=== PATIENT | male | born 1965 | race Caucasian/White ===

== ENCOUNTER 2017-11-03 10:23 | Day surgery (SDC) | payer OTHER ==
[~2017-11-03] VITALS: Ht 165.1 cm; Wt 115.0 kg
[~2017-11-03 10:23] MED LIST: Abilify5 MG PO; CITA20 PO; CYCL10 PO; DESV50 PO; HYDACE10B; HYDACE7.5 PO; LAMO100 PO; METO50 PO; NAPR500 PO; OXYACE5T PO; SIMV40 PO; WARF4 PO
[2017-11-03] MEDS ORDERED: Norco 10-325 T1 EACH PO (12:19)
[2017-11-03] MEDS ORDERED: BRINTELLIX20 MG PO (12:20)
== END 2017-11-03 12:45 | disposition home or self-care (01) ==
LOC: ORSCSDS 10:23
PROVIDERS: Anesthesiology
PROC: 3E0R33Z Introduction of Anti-inflammatory into Spinal Canal, Percutaneous Approach (ICD-10-PCS; principal; 2017-11-03 11:15)
DX: M51.16 Intervertebral disc disorders with radiculopathy, lumbar region (principal); G47.30 Sleep apnea, unspecified; Z79.899 Other long term (current) drug therapy; E66.9 Obesity, unspecified; Z87.891 Personal history of nicotine dependence; Z68.41 Body mass index [BMI] 40.0-44.9, adult; I10 Essential (primary) hypertension; E78.00 Pure hypercholesterolemia, unspecified
CPT/HCPCS: J1040

== ENCOUNTER 2017-12-08 10:07 | Day surgery (SDC) | payer OTHER ==
[~2017-12-08] VITALS: Ht 167.6 cm; Wt 115.3 kg
[~2017-12-08 10:07] MED LIST changes: +BRINTELLIX20 MG PO; +Norco 10-325 T1 EACH PO
[2017-12-08] MEDS ORDERED: LISI20 (11:01)
[2017-12-08] MEDS ORDERED: PRIM50 (11:02)
== END 2017-12-08 11:34 | disposition home or self-care (01) ==
LOC: ORSCSDS 10:07
PROVIDERS: Anesthesiology
PROC: 3E0R33Z Introduction of Anti-inflammatory into Spinal Canal, Percutaneous Approach (ICD-10-PCS; principal; 2017-12-08 11:00)
DX: M51.16 Intervertebral disc disorders with radiculopathy, lumbar region (principal); I10 Essential (primary) hypertension; F32.9 Major depressive disorder, single episode, unspecified; E78.00 Pure hypercholesterolemia, unspecified; G47.30 Sleep apnea, unspecified; Z87.891 Personal history of nicotine dependence; Z79.899 Other long term (current) drug therapy
CPT/HCPCS: J1040

== ENCOUNTER 2018-02-06 04:59 | Emergency (ER) | payer OTHER ==
[~2018-02-06] VITALS: Ht 167.6 cm; Wt 90.7 kg
[~2018-02-06 04:59] MED LIST changes: +LISI20; +PRIM50
[2018-02-06 05:19] LABS: BASOPHILS ABSOLUTE AUTO 0.05 K/mm3 (0.00-0.23); BASOPHILS PERCENT AUTO 1 % (0-2); EOSINOPHILS ABSOLUTE AUTO 0.23 K/mm3 (0.00-0.68); EOSINOPHILS PERCENT AUTO 3 % (0-6); Hematocrit 35.2 % (37.0-53.0); Hemoglobin 12.4 g/dL (13.5-17.5); IMMATURE GRAN ABSOLUTE AUTO 0.03 K/mm3 (0.00-0.10); IMMATURE GRAN PERCENT AUTO 0 % (0-1); LYMPHOCYTES ABSOLUTE AUTO 1.73 K/mm3 (0.84-5.20); LYMPHOCYTES PERCENT AUTO 25 % (21-46); MONOCYTES PERCENT AUTO 10 % (4-13); Mean Corpuscular HGB 29.5 pg (26.0-34.0); Mean Corpuscular HGB Conc 35.2 g/dL (31.5-36.5); Mean Corpuscular Volume 84 fL (80-100); Mean Platelet Volume 8.5 fL (9.1-12.4); NEUTROPHILS ABSOLUTE AUTO 4.26 K/mm3 (1.96-9.15); NEUTROPHILS PERCENT AUTO 61 % (41-73); Platelet Count 426 K/mm3 (150-400); RDW Coefficient Variation 12.8 % (11.7-14.2); RDW Standard Deviation 38.4 fL (35.1-46.3)
[2018-02-06 05:30] LABS: International Normalized Ratio 1.01; Prothrombin Time Results 10.5 Sec (9.7-11.5)
[2018-02-06 05:39] LABS: Alanine Aminotransfer (ALT/SGP 31 U/L (12-78); Albumin, Blood 3.5 g/dL (3.4-5.0); Albumin/Globulin Ratio 1.1 (0.8-1.8); Alk Phos 70 U/L (50-136); Anion Gap 11 mmol/L (6-16); Aspartate Aminotrans (AST/SGOT 17 U/L (12-37); Bilirubin, Total 0.3 mg/dL (0.1-1.0); Blood Urea Nitrogen 24 mg/dL (8-24); Bun/Creatinine Ratio 21.8 (12.0-20.0); CO2, Blood 22 mmol/L (21-32); Calcium, Blood 8.9 mg/dL (8.5-10.1); Chloride, Blood 102 mmol/L (98-108); Ethanol (Alcohol), Blood, Med <3 mg/dL; Globulin, Blood 3.3 g/dL (2.2-4.0); Glomerular Filtration Rate >60 (60-); Glucose, Blood 153 mg/dL (70-99); Potassium, Blood 3.4 mmol/L (3.5-5.5); Sodium, Blood 135 mmol/L (136-145); Total Protein, Blood 6.8 g/dL (6.4-8.2)
[2018-02-06 06:04] LABS: Troponin I <0.015 ng/mL (0.000-0.040)
[2018-02-06 06:27] LABS: PCO2 Arterial 39.3 mmHg (35-45); PO2 Arterial 116 mmHg (80-100); pH Blood Arterial 7.33 (7.35-7.45)
[2018-02-06 07:40] LABS: U Amphetamine Screen Not Detected; U Barbituate Screen DETECTED; U Benzodiazapine Screen Not Detected; U Buprenorphine Screen Not Detected; U Cannabinoids Screen Not Detected; U Cocaine Screen Not Detected; U Methadone Screen Not Detected; U Methamphetamine Screen Not Detected; U Opiates Screen Not Detected; U Oxycodone Screen DETECTED; U Phencyclidine Screen Not Detected; U Propoxyphene Screen Not Detected
== END 2018-02-06 08:55 | disposition short-term general hospital (02) ==
LOC: ER 04:59
PROVIDERS: Emergency Medicine
DX: I63.9 Cerebral infarction, unspecified (principal); J96.90 Respiratory failure, unspecified, unspecified whether with hypoxia or hypercapnia; Z88.8 Allergy status to other drugs, medicaments and biological substances; Z79.899 Other long term (current) drug therapy; I10 Essential (primary) hypertension; F43.10 Post-traumatic stress disorder, unspecified; Z87.891 Personal history of nicotine dependence
CPT/HCPCS: 31500; 31720; 36600; 51702; 70450; 70496; 70498; 71275; 74175; 80053; 82803; 84484; 85025; 85610; 85730; 93005; 93010; 94002; G0480; J0330; J1644; J2060; J2310; J2370; J3010; J7030; Q9967

== ENCOUNTER 2021-03-11 02:23 | Inpatient (IN) | payer OTHER, MEDICARE ==
[~2021-03-11] VITALS: Ht 165.1 cm; Wt 121.2 kg
[~2021-03-11 02:23] MED LIST changes: -LISI20; +LISI20 PO
[2021-03-11 03:12] LABS: BASOPHILS ABSOLUTE AUTO 0.02 K/mm3 (0.00-0.23); BASOPHILS PERCENT AUTO 0 % (0-2); EOSINOPHILS ABSOLUTE AUTO 0.34 K/mm3 (0.00-0.68); EOSINOPHILS PERCENT AUTO 4 % (0-6); Hematocrit 33.9 % (37.0-53.0); Hemoglobin 11.4 g/dL (13.5-17.5); IMMATURE GRAN ABSOLUTE AUTO 0.04 K/mm3 (0.00-0.10); IMMATURE GRAN PERCENT AUTO 0 % (0-1); LYMPHOCYTES ABSOLUTE AUTO 0.96 K/mm3 (0.84-5.20); LYMPHOCYTES PERCENT AUTO 11 % (21-46); MONOCYTES ABSOLUTE AUTO 1.19 K/mm3 (0.16-1.47); MONOCYTES PERCENT AUTO 13 % (4-13); Mean Corpuscular HGB 31.8 pg (26.0-34.0); Mean Corpuscular HGB Conc 33.6 g/dL (31.5-36.5); Mean Corpuscular Volume 94 fL (80-100); Mean Platelet Volume 9.2 fL (9.1-12.4); NEUTROPHILS ABSOLUTE AUTO 6.38 K/mm3 (1.96-9.15); NEUTROPHILS PERCENT AUTO 72 % (41-73); Platelet Count 319 K/mm3 (150-400); RDW Coefficient Variation 13.3 % (11.7-14.2); RDW Standard Deviation 46.3 fL (35.1-46.3); Red Blood Cell Count 3.59 M/mm3 (4.30-5.90); White Blood Cell Count 8.93 K/mm3 (4.00-11.30)
[2021-03-11 03:32] LABS: Albumin, Blood 3.8 g/dL (3.4-5.0); Albumin/Globulin Ratio 1.2 (0.8-1.8); Bilirubin, Total 0.2 mg/dL (0.1-1.0); Bun/Creatinine Ratio 7.9 (12.0-20.0); Calcium, Blood 8.3 mg/dL (8.5-10.1); Creatinine, Blood 4.57 mg/dL (0.60-1.20); Globulin, Blood 3.3 g/dL (2.2-4.0); Potassium, Blood 4.3 mmol/L (3.5-5.5); Thyroid Stimulating Hormone 1.14 uIU/mL (0.360-4.800); Total Protein, Blood 7.1 g/dL (6.4-8.2); Troponin I 0.017 ng/mL (0.000-0.040)
[2021-03-11 04:51] LABS: Creatine Kinase MB Index 2.8 (0.0-4.0)
[2021-03-11 05:11] LABS: Base Excess Venous -8.7 mmol/L; Bicarbonate Venous 17.5 mmol/L (24.0-30.0); PCO2 Venous 44.8 mmHg (38-42); PO2 Venous 53.3 mmHg (38-42); pH Blood Venous 7.23 (7.34-7.37)
[2021-03-11 07:05] LABS: Source, Urine Clean Catch
[2021-03-11 07:08] LABS: Appearance, Urine Clear (Clear); Bilirubin, Urine Neg (Neg); Blood, Urine 4+ (Neg); Color, Urine Yellow (P-Yellow); Glucose Qualitative, Urine Neg (Neg); Ketones, Urine Neg (Neg); Leukocyte Esterase, Urine 1+ (Neg); Nitrite, Urine Neg (Neg); Protein, Urine 2+ (Neg); Specific Gravity, Urine 1.015 (1.003-1.022); Urobilinogen, Urine NORM (Normal)
[2021-03-11 07:18] LABS: Bacteria Few /hpf; Calcium Oxalate Crystals Many /hpf; Squamous Epithelial Cells Not Seen /hpf (Few)
--- NOTE | 2021-03-11 08:17 | NUR ---
ADMIT PT ARRIVED TO ICU 10 VIA GURNEY. PT ALERT AND ORIENTED, CONVERSING APPROPRIATELY WITH STAFF. PT MOVED TO ICU BED AND HAD SIGNIFICANT BACK PAIN WITH THE MOVEMENT CAUSING THE PT TO FREEZE ALMOST SPASM LIKE, BUT THE PT SAID IT WAS JUST INTENSE PAIN, NOT A MUSCLE SPASM. ASSISTED PT INTO A COMFORTABLE POSITION. GAVE PT CALL LIGHT AND INSTRUCTED ON USE WELL FALL PRECAUTIONS. LEVOPHED INFUSING, IV FLUIDS STARTED. DR. SIERRA AT THE BEDSIDE ON ROUNDS AND GAVE OK FOR THE 1.5L OF NS TO BE GIVEN A BOLUS. DR. SIERRA ALSO GAVE ORDER FOR NORCO FOR PAIN CONTROL. ADMIT PAPERWORK COMPLETED EXCEPT FOR MED REC. PT'S TO GO HOME AND CHECK NAME AND DOSE OF PT'S MOOD STABILIZER (HE BELIEVES IT IS [employer]OR BUT ISN'T COMPLETELY SURE). ADMIT PAPERWORK COMPLETED. PT VERY DROWSY AND AND FALLING ASLEEP WHILE DOING ADMIT. UPDATED PT ON PLAN OF CARE AND NOW ALLOWING HIM TIME TO REST. PT'S SPO2 DROPS TO THE UPPER 80S WHILE SLEEPING. PT NOTED ON HIS HISTORY THAT HE HAS HAD A SLEEP STUDY AND NEEDS A CPAP BUT DOESN'T HAVE ONE.
[2021-03-11 08:24] LABS: U Amphetamine Screen Not Detected; U Barbituate Screen DETECTED; U Benzodiazapine Screen Not Detected; U Buprenorphine Screen Not Detected; U Cannabinoids Screen Not Detected; U Cocaine Screen Not Detected; U Methadone Screen Not Detected; U Methamphetamine Screen Not Detected; U Opiates Screen Not Detected; U Oxycodone Screen DETECTED; U Phencyclidine Screen Not Detected; U Propoxyphene Screen Not Detected
--- NOTE | 2021-03-11 12:21 | NUR ---
REASSESSMENT PT STATES THAT HE IS STARTING TO FEEL BETTER, BUT HIS BACK IS STILL HURTING. HE WAS ABLE TO VOID 475ML, BUT HE DID HAVE TROUBLE INITIATING URINATION. HSI BP HAS IMPROVED WITH THE FLUIDS AND THE LEVOPHED WAS TITRATED OFF THIS MORNING. HIS LUNGS ARE CLEAR. ON RA WHILE AWAKE, BUT 2L/NC WHILE SLEEPING BECAUSE OF DESATURATION TO 85%. SR AT REST, TACHY TO 1TEENS WITH ACTIVITY. PT SPENT MOST OF THE MORNING SLEEPING WHEN LEFT UNDISTURBED AND IS CONTINUING TO REST NOW. CONTINUE TO MONITOR.
[2021-03-11 15:30] LABS: Calcium, Blood 8.2 mg/dL (8.5-10.1); Creatinine, Blood 3.39 mg/dL (0.60-1.20); Potassium, Blood 4.9 mmol/L (3.5-5.5)
[2021-03-11] MEDS ORDERED: PRAZ2 PO (16:14)
[2021-03-11] MEDS ORDERED: MIRT15 PO (16:14)
[2021-03-11] MEDS ORDERED: VENL37.5ER PO (16:15)
[2021-03-11] MEDS ORDERED: Primidone50 MG PO (16:16)
[2021-03-11] MEDS ORDERED: NAPR550 PO (16:17)
[2021-03-11] MEDS ORDERED: GABA300 PO ×2 (16:17→16:18)
[2021-03-11] MEDS ORDERED: SULTRIDS PO (16:22)
--- NOTE | 2021-03-11 16:43 | NUR ---
SHIFT SUMMARY PT SPENT THE DAY NAPPING WHEN LEFT UNDISTURBED. HE IS STILL HAVING SIGNIFICANT LOWER BACK PAIN WHEN HE MOVES, BUT WHEN AT REST HE RATES IT AROUND A 3 WHEREAS IT WAS A 5 THIS MORNING. HE STARTED VOIDING THIS AFTERNOON AND HAS VOIDED OVER 3L. URINE IS LIGHT YELLOW, CLEAR. HIS KIDNEY FUNCTION IMPROVED ON HIS LABS AND DR. SIERRA GAVE OK FOR PT TO BE MED, NO TELE. PT'S BROUGHT IN HIS PILL BOTTLES AND MED REC COMPLETED. LUNGS REMAIN CLEAR. RA, SR, BP RUNNING IN THE 130S AT REST, UP TO 160 WHEN STANDING AND IN PAIN. NO OTHER CONCERNS AT THIS TIME. CONTINUE TO MONITOR.
--- NOTE | 2021-03-11 17:55 | NUR ---
SHIFT SUMMARY PATIENT TO THE FLOOR LATE THIS SHIFT. PATIENT ARRIVED VIA WHEELCHAIR. PATIENT TRANSFERED TO THE BED INDEPENDENLY. PATIENT'S WITH PATIENT UPON ARRIVAL. PATIENT ORIENTED TO THE ROOM AND MADE COMFORTABLE. PATIENT CURRENTLY SITTING UP IN BED EATING DINNER.
--- NOTE | 2021-03-11 17:58 | NUR ---
TRANSFER PT TRANSFERRED TO 341. REPORT GIVEN TO MITESH RIVERA. PT TRANSPORTED VIA WC WITH RN. PT'S WITH PT AT TIME OF TRANSFER. ALL BELONGINGS TRANSFERRED WITH PT. PT TOLERATED TRNSFER WELL.
--- NOTE | 2021-03-12 04:51 | NUR ---
SHIFT SUMMARY NO ACUTE CHANGES THIS SHIFT, MEDICATED PER MAR FOR PAIN (CHRONIC BACK & BL FLANK) PT STATES 02/18 @ REST 10/10 W/AMBULATION, SLEPT INTERMITT T/O SHIFT, INDEP IN ROOM, ABLE TO MAKE NEEDS KNOWN, SLEPT INTERMITT T/O SHIFT, SLEEPING AT THIS TIME, CALL LIGHT IN REACH, WILL CONT TO MONITOR UNTIL REPORT GIVEN TO DAY RN.
[2021-03-12 05:39] LABS: BASOPHILS ABSOLUTE AUTO 0.03 K/mm3 (0.00-0.23); BASOPHILS PERCENT AUTO 1 % (0-2); EOSINOPHILS ABSOLUTE AUTO 0.44 K/mm3 (0.00-0.68); EOSINOPHILS PERCENT AUTO 7 % (0-6); Hematocrit 34.5 % (37.0-53.0); Hemoglobin 11.6 g/dL (13.5-17.5); IMMATURE GRAN ABSOLUTE AUTO 0.03 K/mm3 (0.00-0.10); IMMATURE GRAN PERCENT AUTO 1 % (0-1); LYMPHOCYTES PERCENT AUTO 10 % (21-46); MONOCYTES PERCENT AUTO 16 % (4-13); Mean Corpuscular HGB 31.4 pg (26.0-34.0); Mean Corpuscular HGB Conc 33.6 g/dL (31.5-36.5); Mean Corpuscular Volume 93 fL (80-100); Mean Platelet Volume 9.2 fL (9.1-12.4); NEUTROPHILS ABSOLUTE AUTO 4.17 K/mm3 (1.96-9.15); NEUTROPHILS PERCENT AUTO 67 % (41-73); Platelet Count 305 K/mm3 (150-400); RDW Standard Deviation 44.5 fL (35.1-46.3); White Blood Cell Count 6.27 K/mm3 (4.00-11.30)
[2021-03-12 06:14] LABS: Albumin, Blood 3.4 g/dL (3.4-5.0); Albumin/Globulin Ratio 0.9 (0.8-1.8); Bilirubin, Total 0.4 mg/dL (0.1-1.0); Bun/Creatinine Ratio 14.6 (12.0-20.0); Calcium, Blood 8.8 mg/dL (8.5-10.1); Creatinine, Blood 1.37 mg/dL (0.60-1.20); Globulin, Blood 3.6 g/dL (2.2-4.0); Potassium, Blood 4.5 mmol/L (3.5-5.5); Thyroid Stimulating Hormone 0.25 uIU/mL (0.360-4.800)
[2021-03-12 13:38] LABS: Anion Gap 5 mmol/L (6-16); Blood Urea Nitrogen 17 mg/dL (8-24); Bun/Creatinine Ratio 15.3 (12.0-20.0); CO2, Blood 25 mmol/L (21-32); Calcium, Blood 9.2 mg/dL (8.5-10.1); Chloride, Blood 102 mmol/L (98-108); Creatinine, Blood 1.11 mg/dL (0.60-1.20); Glomerular Filtration Rate >60 (60-); Glucose, Blood 166 mg/dL (70-99); Potassium, Blood 4.2 mmol/L (3.5-5.5); Sodium, Blood 132 mmol/L (136-145)
--- NOTE | 2021-03-12 14:55 | NUR ---
Advance Directive (AD) education/spiritual care visit conducted. Upon receiving an admit referral requesting AD education, I visit patient. Patient confirms AD interest and so I discuss the purpose and importance of the AD. I then give patient the AD booklet and explain about the different sections, about the notary and witness requirements and about the filing process. Patient states that he will go over the material with his spouse when she arrives at the hospital. 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 Patient tells me his concerns about going home after what he has gone through. I normalize patient's experience and provide therapeutic listening and prayer. Patient responds well and shows signs of reduced stress. I will continue to remain available to patient and family.
--- NOTE | 2021-03-12 15:25 | NUR ---
PATIENT HAS BEEN PLEASANT AND COOPERATIVE WITH STAFF. BP ELEVATED BUT VITALS OTHERWISE WNL. PATIENT MENTIONED NOT RECIEVING MAJORITY OF HOME MEDS SO I MADE CALL TO DR ELLIOTT TO INQUIRE ABOUT THAT, DR ELLIOTT STATED THAT SHE INTENTIONALLY HELD THOSE MEDICATIONS DUE TO BEING NEPHRO-TOXIC. THAT WAS EXPLAINED TO PATIENT AND PATIENT UNDERSTOOD. PATIENT CONTINUES ON IV FLUIDS PER EMAR. PLAN TO D/C HOME TOMORROW PER MD. PATIENT RESTING IN BED AT THIS TIME. CALL LIGHT WITHIN REACH; PATIENT CALLS FOR STAFF ASSIST APPROPRIATELY.
[2021-03-13 06:09] LABS: Anion Gap 7 mmol/L (6-16); Blood Urea Nitrogen 15 mg/dL (8-24); Bun/Creatinine Ratio 18.1 (12.0-20.0); CO2, Blood 25 mmol/L (21-32); Calcium, Blood 9.2 mg/dL (8.5-10.1); Chloride, Blood 103 mmol/L (98-108); Creatinine, Blood 0.83 mg/dL (0.60-1.20); Glomerular Filtration Rate >60 (60-); Glucose, Blood 106 mg/dL (70-99); Sodium, Blood 135 mmol/L (136-145)
[2021-03-13 06:10] LABS: CPK Creatine Kinase 1701 U/L (39-308)
--- NOTE | 2021-03-13 06:23 | NUR ---
PT alert voiding large amts of clear yellow urine. Appetite good , continued on IV fluids all shift. Medicated with 1 norco 5/325 mg tab or tylenol 650 mg for back & rt flank pain with good relief.
--- NOTE | 2021-03-13 07:30 | NUR ---
ASSUMED CARE: PT C/O RIGHT FLANK PAIN. NS RUNNING AT THIS TIME. NO ACUTE NEEDS OR CONCERNS. MEDICATED ABLE PER EMAR
[2021-03-13] MEDS ORDERED: LIDO700A20 TOP (09:56)
--- NOTE | 2021-03-13 12:54 | NUR ---
DISCHARGE: INSTRUCTIONS GIVEN REGARDING FOLLOW APPOINTMENTS AND MEDICATIONS. IV DC'D WNL. PT ESCORTED OUT VIA WHEEL CHAIR. DENIES FURTHER NEEDS OR CONCERNS
== END 2021-03-13 11:51 | disposition home or self-care (01) | DRG 682 ==
LOC: ER 02:23 → ICUW 07:13 → MEDS 17:45
PROVIDERS: Emergency Medicine; Family Medicine; ADMIT Internal Medicine
PROC: 3E033XZ Introduction of Vasopressor into Peripheral Vein, Percutaneous Approach (ICD-10-PCS; principal; 2021-03-11)
PROC: 05HY33Z Insertion of Infusion Device into Upper Vein, Percutaneous Approach (ICD-10-PCS; 2021-03-11)
DX: N17.9 Acute kidney failure, unspecified (principal); R57.1 Hypovolemic shock; E87.4 Mixed disorder of acid-base balance; M62.82 Rhabdomyolysis; Z68.41 Body mass index [BMI] 40.0-44.9, adult; I10 Essential (primary) hypertension; F43.10 Post-traumatic stress disorder, unspecified; N20.0 Calculus of kidney; E86.0 Dehydration; F32.9 Major depressive disorder, single episode, unspecified; M54.5 Low back pain; R94.6 Abnormal results of thyroid function studies; G89.29 Other chronic pain; F25.9 Schizoaffective disorder, unspecified; Z88.8 Allergy status to other drugs, medicaments and biological substances; Z87.891 Personal history of nicotine dependence; Z98.890 Other specified postprocedural states; Z79.899 Other long term (current) drug therapy
CPT/HCPCS: 36415; 51798; 71045; 71275; 74175; 80048; 80053; 81001; 82550; 82553; 82803; 83605; 83690; 84443; 84484; 85025; 87086; 93005; 93010; 96365-59; 96366; 96368; 96375-59; 97110; 97161; 99285-25; A9270; J1650; J2543; J3010; J7030; J7120; Q9967

== ENCOUNTER 2021-06-25 05:01 | Emergency (ER) | payer OTHER ==
[~2021-06-25] VITALS: Ht 165.1 cm; Wt 113.8 kg
[~2021-06-25 05:01] MED LIST changes: +GABA300 PO; +LIDO700A20 TOP; +MIRT15 PO; +NAPR550 PO; +PRAZ2 PO; +Primidone50 MG PO; +SULTRIDS PO; +VENL37.5ER PO
[2021-06-25 06:16] LABS: BASOPHILS ABSOLUTE AUTO 0.01 K/mm3 (0.00-0.23); BASOPHILS PERCENT AUTO 0 % (0-2); Hematocrit 32.8 % (37.0-53.0); Hemoglobin 11.3 g/dL (13.5-17.5); LYMPHOCYTES ABSOLUTE AUTO 0.77 K/mm3 (0.84-5.20); LYMPHOCYTES PERCENT AUTO 10 % (21-46); MONOCYTES ABSOLUTE AUTO 0.25 K/mm3 (0.16-1.47); MONOCYTES PERCENT AUTO 3 % (4-13); Mean Corpuscular HGB 30.2 pg (26.0-34.0); Mean Corpuscular HGB Conc 34.5 g/dL (31.5-36.5); Mean Corpuscular Volume 88 fL (80-100); Platelet Count 243 K/mm3 (150-400); RDW Coefficient Variation 14.1 % (11.7-14.2); RDW Standard Deviation 45.8 fL (35.1-46.3); Red Blood Cell Count 3.74 M/mm3 (4.30-5.90); White Blood Cell Count 7.37 K/mm3 (4.00-11.30)
[2021-06-25 06:19] LABS: EOSINOPHILS ABSOLUTE AUTO 0.02 K/mm3 (0.00-0.68); EOSINOPHILS PERCENT AUTO 0 % (0-6); IMMATURE GRAN ABSOLUTE AUTO 0.03 K/mm3 (0.00-0.10); IMMATURE GRAN PERCENT AUTO 0 % (0-1); NEUTROPHILS ABSOLUTE AUTO 6.29 K/mm3 (1.96-9.15); NEUTROPHILS PERCENT AUTO 85 % (41-73)
[2021-06-25 06:25] LABS: Anion Gap 7 mmol/L (6-16); Blood Urea Nitrogen 15 mg/dL (8-24); Bun/Creatinine Ratio 19.5 (12.0-20.0); CO2, Blood 24 mmol/L (21-32); Calcium, Blood 8.1 mg/dL (8.5-10.1); Chloride, Blood 102 mmol/L (98-108); Creatinine, Blood 0.77 mg/dL (0.60-1.20); Glomerular Filtration Rate >60 (60-); Glucose, Blood 141 mg/dL (70-99); Potassium, Blood 3.6 mmol/L (3.5-5.5); Sodium, Blood 133 mmol/L (136-145)
[2021-06-25 07:33] LABS: BASOPHILS PERCENT MAN 0 % (0-2); EOSINOPHILS PERCENT MAN 0 % (0-6); LYMPHOCYTES ABSOLUTE MAN 0.88 K/mm3 (0.84-5.20); LYMPHOCYTES PERCENT MAN 12 % (21-46); MONOCYTES ABSOLUTE MAN 0.36 K/mm3 (0.16-1.47); MONOCYTES PERCENT MAN 5 % (4-13); NEUTROPHILS ABSOLUTE MAN 6.11 K/mm3 (1.96-9.15); SEG NEUTROPHILS PERCENT MAN 83 % (41-73); TOTAL CELLS COUNTED 100
[2021-06-25] MEDS ORDERED: DEXA6 PO (08:02)
== END 2021-06-25 09:50 | disposition home or self-care (01) ==
LOC: ER 05:01
PROVIDERS: Emergency Medicine
DX: U07.1 COVID-19 (principal); J96.01 Acute respiratory failure with hypoxia; G47.30 Sleep apnea, unspecified; Z88.8 Allergy status to other drugs, medicaments and biological substances; Z79.899 Other long term (current) drug therapy
CPT/HCPCS: 36415; 71045; 80048; 85025; 93005; 93010; 96374; 99285-25; J1100

== ENCOUNTER 2021-06-28 09:24 | Inpatient (IN) | payer OTHER ==
[~2021-06-28] VITALS: Ht 165.1 cm; Wt 101.7 kg
[~2021-06-28 09:24] MED LIST changes: +DEXA6 PO
[2021-06-28 09:57] LABS: Hematocrit 36.4 % (37.0-53.0); Hemoglobin 12.3 g/dL (13.5-17.5); Mean Corpuscular HGB 29.8 pg (26.0-34.0); Mean Corpuscular HGB Conc 33.8 g/dL (31.5-36.5); Mean Corpuscular Volume 88 fL (80-100); Mean Platelet Volume 9.5 fL (9.1-12.4); NRBC ABSOLUTE 0.03 K/mm3 (0.00-0.02); NRBC Auto 0.2 /100 WBC (0.0-0.2); Platelet Count 290 K/mm3 (150-400); RDW Coefficient Variation 13.7 % (11.7-14.2); RDW Standard Deviation 44.5 fL (35.1-46.3); Red Blood Cell Count 4.13 M/mm3 (4.30-5.90); White Blood Cell Count 14.68 K/mm3 (4.00-11.30)
[2021-06-28 10:10] LABS: Alanine Aminotransfer (ALT/SGP 40 U/L (12-78); Albumin/Globulin Ratio 0.7 (0.8-1.8); Alk Phos 99 U/L (50-136); Anion Gap 13 mmol/L (6-16); Aspartate Aminotrans (AST/SGOT 27 U/L (12-37); Bilirubin, Total 0.5 mg/dL (0.1-1.0); Blood Urea Nitrogen 19 mg/dL (8-24); Bun/Creatinine Ratio 22.9 (12.0-20.0); CO2, Blood 18 mmol/L (21-32); Calcium, Blood 8.5 mg/dL (8.5-10.1); Chloride, Blood 106 mmol/L (98-108); Creatinine, Blood 0.83 mg/dL (0.60-1.20); Globulin, Blood 4.1 g/dL (2.2-4.0); Glomerular Filtration Rate >60 (60-); Glucose, Blood 217 mg/dL (70-99); Potassium, Blood 3.5 mmol/L (3.5-5.5); Sodium, Blood 137 mmol/L (136-145); Total Protein, Blood 7.1 g/dL (6.4-8.2)
[2021-06-28 10:17] LABS: BAND PERCENT MAN 13 % (0-8); BASOPHILS PERCENT MAN 0 % (0-2); EOSINOPHILS PERCENT MAN 0 % (0-6); LYMPHOCYTES ABSOLUTE MAN 0.88 K/mm3 (0.84-5.20); LYMPHOCYTES PERCENT MAN 6 % (21-46); METAMYELOCYTE ABSOLUTE MAN 0.44 K/mm3 (0.00-0.00); METAMYELOCYTE PERCENT MAN 3 % (0-0); MONOCYTES ABSOLUTE MAN 0.88 K/mm3 (0.16-1.47); MONOCYTES PERCENT MAN 6 % (4-13); MYELOCYTE ABSOLUTE MAN 0.29 K/mm3 (0.00-0.00); MYELOCYTE PERCENT MAN 2 % (0-0); NEUTROPHILS ABSOLUTE MAN 12.18 K/mm3 (1.96-9.15); SEG NEUTROPHILS PERCENT MAN 70 % (41-73); TOTAL CELLS COUNTED 100
--- NOTE | 2021-06-28 15:47 | NUR ---
SATS 88% ON FIO2 75%, RATE 15, BP 163/96 (108) HEART RATE 91
--- NOTE | 2021-06-28 15:50 | NUR ---
ANXIETY Patient continues to be anxious. Received T.O. from Dr. Garrido for Ativan 0.5-1mg Q2H PRN. EMAR updated.
--- NOTE | 2021-06-28 15:52 | NUR ---
SATS 92% ON 75% FIO2 RATE 12, 158/92 (110) LEFT ARM 94 HEART RATE
--- NOTE | 2021-06-28 16:03 | NUR ---
157/97 94% ON 75% FIO2 RESP RATE 36
--- NOTE | 2021-06-28 16:20 | NUR ---
REPORT FROM ZOIE MAGALLANES AT 1406, PATIENT TO FLOOR AT 1420, SOB, RESP 48, TRANSFERRED TO BED WAS MINMAL EXTERTION AND PATIENT BECAME VERY SOB, BIPAP ON NOW, MEDICATED FOR ANXIETY X2, MAKES NEEDS KNOWN, CALL LIGHT WITH IN REACH, WCTM
--- NOTE | 2021-06-28 16:44 | NUR ---
PATIENT CONTINUES TO FORGET REINFORCEMENT TO BREATH, REQUESTING PAIN MEDICATIONS, WILL MEDICATE WITH ULTRAM, 85% ON BIPAP AT 75% FIO2, RESPIRATIONS 44
--- NOTE | 2021-06-29 01:23 | NUR ---
Transfer note Hand off given to room PCU8 RN. Personal possessions with patient. RT and nursing staff transported patient to PCU via gurney. Bipap in place.
--- NOTE | 2021-06-29 01:32 | NUR ---
CALLED HOSPITALIST PT PULLING OFF BIPAP CONTINUOUSLY. ATIVAN GIVEN X2, NO EFFECT. RECEIVED ORDERS TO TRANSFER PT TO PCU. I NOTIFIED RT, WHO WILL BE PRESENT DURING TRANSFER.
--- NOTE | 2021-06-29 01:34 | NUR ---
CALLED SPOUSE INFORMED SPOUSE OF PT'S TRANSFER TO PCU 8. SPOUSE IS NOW AWARE
[2021-06-29 03:45] LABS: BASOPHILS ABSOLUTE AUTO 0.02 K/mm3 (0.00-0.23); BASOPHILS PERCENT AUTO 0 % (0-2); EOSINOPHILS PERCENT AUTO 0 % (0-6); Hematocrit 32.1 % (37.0-53.0); IMMATURE GRAN ABSOLUTE AUTO 0.47 K/mm3 (0.00-0.10); IMMATURE GRAN PERCENT AUTO 4 % (0-1); LYMPHOCYTES ABSOLUTE AUTO 0.75 K/mm3 (0.84-5.20); LYMPHOCYTES PERCENT AUTO 6 % (21-46); MONOCYTES PERCENT AUTO 12 % (4-13); Mean Corpuscular HGB 29.6 pg (26.0-34.0); Mean Corpuscular HGB Conc 34.3 g/dL (31.5-36.5); Mean Corpuscular Volume 86 fL (80-100); Mean Platelet Volume 9.4 fL (9.1-12.4); NEUTROPHILS ABSOLUTE AUTO 9.97 K/mm3 (1.96-9.15); NEUTROPHILS PERCENT AUTO 78 % (41-73); NRBC ABSOLUTE 0.04 K/mm3 (0.00-0.02); NRBC Auto 0.3 /100 WBC (0.0-0.2); Platelet Count 219 K/mm3 (150-400); RDW Coefficient Variation 13.7 % (11.7-14.2); RDW Standard Deviation 43.5 fL (35.1-46.3); Red Blood Cell Count 3.72 M/mm3 (4.30-5.90); White Blood Cell Count 12.71 K/mm3 (4.00-11.30)
[2021-06-29 04:11] LABS: Alanine Aminotransfer (ALT/SGP 30 U/L (12-78); Albumin, Blood 2.8 g/dL (3.4-5.0); Albumin/Globulin Ratio 0.7 (0.8-1.8); Alk Phos 80 U/L (50-136); Anion Gap 7 mmol/L (6-16); Aspartate Aminotrans (AST/SGOT 21 U/L (12-37); Bilirubin, Total 0.5 mg/dL (0.1-1.0); Blood Urea Nitrogen 17 mg/dL (8-24); Bun/Creatinine Ratio 24.4 (12.0-20.0); CO2, Blood 22 mmol/L (21-32); Calcium, Blood 8.2 mg/dL (8.5-10.1); Chloride, Blood 107 mmol/L (98-108); Glomerular Filtration Rate >60 (60-); Glucose, Blood 119 mg/dL (70-99); Magnesium, Blood 2.1 mg/dL (1.6-2.4); Potassium, Blood 3.5 mmol/L (3.5-5.5); Sodium, Blood 136 mmol/L (136-145); Total Protein, Blood 6.8 g/dL (6.4-8.2)
--- NOTE | 2021-06-29 04:41 | NUR ---
CALL TO NOTIFIED PT'S (DANIEL) THAT PT IS BEING MOVED TO ICU-07 AND PLAN IS FOR INTUBATION SHORTLY AFTER TRANSFER. SPOKE AT LENGTH TO ANSWER QUESTIONS, PROVIDED ICU PHONE #, AND REASSURED PT THAT STAFF ARE DOING EVERYTHING POSSIBLE AT THIS TIME.
[2021-06-29 05:46] LABS: Source, Urine Catheter
[2021-06-29 05:49] LABS: Appearance, Urine Hazy (Clear); Bilirubin, Urine Neg (Neg); Blood, Urine 5+ (Neg); Color, Urine Amber (P-Yellow); Glucose Qualitative, Urine Neg (Neg); Ketones, Urine 1+ (Neg); Leukocyte Esterase, Urine 1+ (Neg); Nitrite, Urine Neg (Neg); Protein, Urine 3+ (Neg); Urobilinogen, Urine NORM (Normal)
[2021-06-29 05:58] LABS: Amorphous Light (0-Heavy); Bacteria Few /hpf; Hyaline Casts 0-2 /lpf (0-2); Mucus Mod (0-Heavy); Red Blood Cells, Urine 50-100 /hpf (0-2); Squamous Epithelial Cells Few /hpf (Few)
[2021-06-29 06:03] LABS: pH Blood Arterial 7.28 (7.35-7.45)
[2021-06-29 06:04] LABS: PCO2 Arterial 48.4 mmHg (35-45)
--- NOTE | 2021-06-29 06:30 | NUR ---
PT ARRIVES TO ICU 7 FROM PCU SECONDARY TO RESPIRATORY DISTRESS AND FAILURE. PT NEEDED TO BE EMERGENTLY INTUBATED BY DR BLAS. PT ON PROPOFOL CURRENTLY 60 MCG/KG/MIN, PRECEDEX AT 1.4 MCG/KG AND WAS STILL WITH RESPIRATORY RATE 30-40'S. PT PLACED TO NIMBEX DRIP WITH TITRATION UP TO 3.4 MCG'S. PT HAS TRAIN OF FOUR 3/4. WILL CONTINUE TO MONITOR, AND WILL REPORT OFF TO ONCOMING RN.
--- NOTE | 2021-06-29 06:46 | NUR ---
AT AROUND 0345 PATIENT WAS GETTING MORE AND MORE AGITATED AND HIS WORK FOR BREATHING WAS INCREASING. THE PATIENT WAS ADMITTED FOR COVID ON THE MEDICAL FLOOR. HE WAS ON AIRVO DURING THE DAY BUT HIS O2 DEMAND INCREASED AND HE WAS PUT ON THE BIPAP. HE WAS TRANSFERED TO PCU ON BIPAP TO BE STARTED ON THE PRECEDEX DRIP. PRECEDEX WAS NEEDED TO BE INCREASED BECASUE PATIENT HAD REACHED THE MAX OF 0.7 MCG/KG/HR. DR RODRIGUEZ WAS NOTIFED AND THE ORDER FOR PRECEDEX WAS INCREASED. THE PATIENT WAS BUMPED UP TO 1.4 MCG/KG/HR. THE PATIENT WAS STILL FINDING IT DIFFICULT TO BREATH. RETAIL MANAGER IN TRAINING CAME TO EVALUATE THE PATIENT AND THE MD NEEDED TO COME EVALUATE THE PATIENT BASED ON THE INFORMATION THE MD WAS TOLD AND THE CURRENT PATIENT STATUS HE REQUESTED HE BE TRANSFERED TO THE ICU FOR INTUBATION. DUE TO THE PATIENT NOT IMPROVING WITH THE SETTINGS ON THE CPAP MAXED OUT AND HIS SATURATIONS HANGING IN THE MID 80% AND AROUND 77% THEY PLANNED ON INTUBATING THE PATIENT AFTER HE WAS TRANSFERED TO ICU. ATIVAN WAS GIVEN TO HELP CALM THE PATIENT WITHOUT ANY CHANGES. THE PATIENT WAS OVER WORKING HIMSELF TO BREATH. HE WAS THEN TRANSFERED TO THE ICU AND INTUBATED. PATIENT IS CURRENTLY IN THE ICU. HIS DANIEL WAS NOTIFED OF THE NEW CHANGES BY THE PCU CHARGE NURSE.
[2021-06-29 12:35] LABS: Base Excess Venous -3.2 mmol/L; PCO2 Venous 59.4 mmHg (38-42); PO2 Venous 53.7 mmHg (38-42); pH Blood Venous 7.24 (7.34-7.37)
[2021-06-29 13:58] LABS: Adenovirus Not Detected (NOT DETECT); Coronavirus 229E Not Detected (NOT DETECT); Coronavirus HKU1 Not Detected (NOT DETECT); Coronavirus NL63 Not Detected (NOT DETECT); Coronavirus OC43 Not Detected (NOT DETECT); SARS-Cov-2 (COVID-19), BioFire Not Detected (NOT DETECT)
[2021-06-29 13:59] LABS: Bordetella pertussis Not Detected (NOT DETECT); Chlamydophila pneumoniae Not Detected (NOT DETECT); Human Metapneumovirus Not Detected (NOT DETECT); Human Rhinovirus/Enterovirus Not Detected (NOT DETECT); Influenza A/2009-H1 Not Detected (NOT DETECT); Influenza A/H1 Not Detected (NOT DETECT); Influenza A/H3 Not Detected (NOT DETECT); Influenza B Not Detected (NOT DETECT); Mycoplasma pneumoniae Not Detected (NOT DETECT); Parainfluenza Virus 1 Not Detected (NOT DETECT); Parainfluenza Virus 2 Not Detected (NOT DETECT); Parainfluenza Virus 3 Not Detected (NOT DETECT); Parainfluenza Virus 4 Not Detected (NOT DETECT); Respiratory Syncytial Virus Not Detected (NOT DETECT)
--- NOTE | 2021-06-29 18:28 | NUR ---
PT INTUBATED, SEDATED AND PARALYZED THROUGHOUT SHIFT. END OF SHIFT VENT SETTINGS 24, 450, 12, 60; VBG DRAWN THIS AFTERNOON AND VENT MANAGED ACCORDINGLY. LUNGS DIM THROUGHOUT. SEDATION TITRATED DOWN TO PRECEDEX 0.8, PROP 40, NIMBEX DOWN TO 2 FROM 3.5. DISCUSSED WITH MD KANG GOAL TO TRIAL PT OFF PARALYTIC TONIGHT. PCR TEST NEGATIVE. PT AFEBRILE THROUGHOUT SHIFT, BP STABLE. GREAT UO. DISCUSSED WITH AM K 3.5, PT MAY BENEFIT FROM ELECTROLYTE PROTOCOL SINCE AUTODIURESING. LAB DRAWN. WILL REPORT OFF TO NOC SHIFT. RN AND UPDATED PT'S AND DTR THIS SHIFT. PT REPOSITIONED Q 2 HRS.
--- NOTE | 2021-06-29 20:00 | NUR ---
ASSUMED CARE OF PT AT 1915. REPORT RECEIVED. PT PRESENTS IN BED INTUBATED. PT PARALYZED WITH NIMBEX. TRAIN OF FOUR 3/4. SEDATED WITH PROPOFOL, AND PRECEDEX. LUNGS CLEAR IN UPPER LOBES, DIMINISHED IN BASES. WILL REVIEW CHART AND PLAN OF CARE FOR THIS PT.
--- NOTE | 2021-06-30 | NUR ---
NO CHANGES TO NOTE. HAVE TURNED PT Q 2 HOURS. HAS REMAINED AFEBRILE. WILL CONTINUE TO MONITOR.
[2021-06-30 04:42] LABS: BASOPHILS ABSOLUTE AUTO 0.02 K/mm3 (0.00-0.23); BASOPHILS PERCENT AUTO 0 % (0-2); Hematocrit 30.5 % (37.0-53.0); Hemoglobin 10.7 g/dL (13.5-17.5); LYMPHOCYTES ABSOLUTE AUTO 0.57 K/mm3 (0.84-5.20); LYMPHOCYTES PERCENT AUTO 5 % (21-46); MONOCYTES ABSOLUTE AUTO 1.15 K/mm3 (0.16-1.47); MONOCYTES PERCENT AUTO 10 % (4-13); Mean Corpuscular HGB 32.3 pg (26.0-34.0); Mean Corpuscular HGB Conc 35.1 g/dL (31.5-36.5); Mean Platelet Volume 9.9 fL (9.1-12.4); NRBC ABSOLUTE 0.04 K/mm3 (0.00-0.02); NRBC Auto 0.4 /100 WBC (0.0-0.2); Platelet Count 227 K/mm3 (150-400); RDW Coefficient Variation 14.4 % (11.7-14.2); RDW Standard Deviation 48.6 fL (35.1-46.3); Red Blood Cell Count 3.31 M/mm3 (4.30-5.90)
[2021-06-30 04:43] LABS: EOSINOPHILS ABSOLUTE AUTO 0.16 K/mm3 (0.00-0.68); EOSINOPHILS PERCENT AUTO 1 % (0-6); IMMATURE GRAN ABSOLUTE AUTO 0.45 K/mm3 (0.00-0.10); IMMATURE GRAN PERCENT AUTO 4 % (0-1); Mean Corpuscular Volume 92 fL (80-100); NEUTROPHILS ABSOLUTE AUTO 9.05 K/mm3 (1.96-9.15); NEUTROPHILS PERCENT AUTO 79 % (41-73)
[2021-06-30 06:04] LABS: Alanine Aminotransfer (ALT/SGP 26 U/L (12-78); Albumin/Globulin Ratio 0.5 (0.8-1.8); Alk Phos 61 U/L (50-136); Anion Gap 10 mmol/L (6-16); Aspartate Aminotrans (AST/SGOT 26 U/L (12-37); Bilirubin, Total 0.5 mg/dL (0.1-1.0); Blood Urea Nitrogen 13 mg/dL (8-24); Bun/Creatinine Ratio 23.2 (12.0-20.0); CO2, Blood 18 mmol/L (21-32); Calcium, Blood 7.7 mg/dL (8.5-10.1); Chloride, Blood 106 mmol/L (98-108); Creatinine, Blood 0.56 mg/dL (0.60-1.20); Globulin, Blood 3.9 g/dL (2.2-4.0); Glomerular Filtration Rate >60 (60-); Glucose, Blood 133 mg/dL (70-99); Magnesium, Blood 2.5 mg/dL (1.6-2.4); Potassium, Blood 4.8 mmol/L (3.5-5.5); Sodium, Blood 134 mmol/L (136-145); Total Protein, Blood 5.9 g/dL (6.4-8.2)
--- NOTE | 2021-06-30 06:30 | NUR ---
HAVE ATTEMPTED TO DECREASE PT'S NIMBEX OFF. ALSO DECREASED SEDATION. PT BECOMES TACHYPNEIC AND HYPERTENSIVE. PLACED PT TO 1 MCG NIMBEX, AND INCREASED SEDATION. PT REMAINED HYPERTENSIVE. ADMINISTERED 2 MG ATIVAN AND BLOOD PRESSURES RETURNED TO NORMAL LIMITS. WILL CONTINUE TO MONITOR PT, AND WILL REPORT OFF TO ONCOMING RN.
--- NOTE | 2021-06-30 10:15 | NUR ---
ASSUMED PT CARE, PT ON NIMBEX AT 1, TO4 01/13. SPOKE WITH MD KANG, NIMBEX NOW ON SB, RESTRAINTS IN PLACE PRECAUTION. PROP AT 50 MCG/KG/MIN, DEX AT 0.7. PUPPILS 5 BILATERAL, BRISK. COUGH AND GAG PRESENT. RASS -4. WILL REASSESS AGAIN TO EVAL SEDATION STATUS NOW THAT NIMBEX OFF. VENT SETTINGS 24, 450, PEEP 8, FI02 ON 80% AT START OF SHIFT, TITRATED DOWN TO 70% SATS 94%. LOW GRADE FEVER 99.5, COOLING MEASURES APPLIED. GREAT UO. FC CATH PROVIDED. DISCUSSED WITH MD KANG DECREASING IVF.
--- NOTE | 2021-06-30 10:33 | NUR ---
WITH NIMBEX OFF FOR 30 MIN, PT TACHYPNEIC IN 40S, HRN 168/105, DESATTING TO 86%. TITRATED PRECEDEX TO 1.4, PROP TO 60, PT REMAINS UNABLE TO TOLERATE VENTILATION. NIMBEX RESTARTED AT 2MCG/KG/MIN TO ACHIEVE TO4 2/4. MD KANG UPDATED.
--- NOTE | 2021-06-30 18:02 | NUR ---
MAJOR EVENTS THIS SHIFT: ATTEMPTED TO KEEP PARALYTIC OFF IN AM, HOWEVER PT BECAME TACHYPNEIC, TACHYCARDIC, AND HTN, STACKING BREATHS WITH POOR VENT TOLERANCE DESPITE INCREASING SEDATION. MD KANG INFORMED, PT RESTARTED ON NIMBEX. AT END OF SHIFT PRECEDEX AT 1.2, PROP AT 50, NIMBEX AT 2; VENT SETTINGS 24, 450, 12, 60%. PLAN FOR METEOROLOGICAL EQUIPMENT REPAIRER CONSULT TO START TF. GOOD UO FROM FC. PT REPOSITIONED Q 2 HRS ABLE. SPUTUM CULTURE POSITIVE FOR MRSA. PTS UPDATED X 2 THROUGHOUT SHIFT.
[2021-07-01 04:27] LABS: BASOPHILS ABSOLUTE AUTO 0.02 K/mm3 (0.00-0.23); BASOPHILS PERCENT AUTO 0 % (0-2); EOSINOPHILS ABSOLUTE AUTO 0.28 K/mm3 (0.00-0.68); EOSINOPHILS PERCENT AUTO 3 % (0-6); Hematocrit 30.9 % (37.0-53.0); IMMATURE GRAN ABSOLUTE AUTO 0.57 K/mm3 (0.00-0.10); IMMATURE GRAN PERCENT AUTO 5 % (0-1); LYMPHOCYTES ABSOLUTE AUTO 0.72 K/mm3 (0.84-5.20); LYMPHOCYTES PERCENT AUTO 6 % (21-46); MONOCYTES ABSOLUTE AUTO 1.02 K/mm3 (0.16-1.47); MONOCYTES PERCENT AUTO 9 % (4-13); Mean Corpuscular HGB 29.6 pg (26.0-34.0); Mean Corpuscular HGB Conc 32.4 g/dL (31.5-36.5); Mean Corpuscular Volume 91 fL (80-100); Mean Platelet Volume 9.4 fL (9.1-12.4); NEUTROPHILS PERCENT AUTO 77 % (41-73); NRBC ABSOLUTE 0.09 K/mm3 (0.00-0.02); NRBC Auto 0.8 /100 WBC (0.0-0.2); Platelet Count 305 K/mm3 (150-400); RDW Coefficient Variation 14.2 % (11.7-14.2); RDW Standard Deviation 47.8 fL (35.1-46.3); Red Blood Cell Count 3.38 M/mm3 (4.30-5.90); White Blood Cell Count 11.41 K/mm3 (4.00-11.30)
[2021-07-01 04:46] LABS: Anion Gap 5 mmol/L (6-16); Blood Urea Nitrogen 12 mg/dL (8-24); Bun/Creatinine Ratio 16.8 (12.0-20.0); CO2, Blood 27 mmol/L (21-32); Calcium, Blood 8.2 mg/dL (8.5-10.1); Chloride, Blood 107 mmol/L (98-108); Creatinine, Blood 0.71 mg/dL (0.60-1.20); Glomerular Filtration Rate >60 (60-); Glucose, Blood 130 mg/dL (70-99); Potassium, Blood 4.1 mmol/L (3.5-5.5); Sodium, Blood 139 mmol/L (136-145)
[2021-07-01 05:10] LABS: PCO2 Arterial 43.5 mmHg (35-45); PO2 Arterial 68.8 mmHg (80-100); pH Blood Arterial 7.37 (7.35-7.45)
--- NOTE | 2021-07-01 07:21 | NUR ---
Assumed care for patient during the shift supervisor rn. Patient vented and sedated, also he is on Nimbex drip. During the night patient was very agitated with sbp above 190. MD notified and new oders given for PRN Hydralizine and Labetalol IV push. Precedex was discontinued and Fentanyl drip initiated. Suctioned for minimal thin evans secretion via ETT and orally. Repositioned from side to side. No distress noted.
--- NOTE | 2021-07-01 07:35 | NUR ---
CARE ASSUMED OF PT AT 0700. PT SEVERELY HYPERTENSIVE 215/92. BIS 60'S. PRECEDEX OFF (WAS DC'D), PROPOFOL AT 50MCG, FENT GTT AT 50MCG. PT HAD BEEN RESCENTLY MEDICATED W IV HTN MEDS. ATIVAN 2MG IVP GIVEN. PT IS ON NIMBEX AT 2MCG, TO4 4/4, BUT PT APPEARS ADEQUATELY PARALYZED. NO COUGH, GAG, OR SWALLOW, PT IS NOT BREATHING OVER VENT, PT IS SYNCHRONIZED W VENT. AC/VC 24 450/70 50% PEEP 12. PT'S SATS 95%, SINUS TACH 90-110. TEMP 99.1. LUNGS COARSE T/O W GOOD AIR MOVEMENT.
--- NOTE | 2021-07-01 07:43 | NUR ---
PT REMAINS HYPERTENSIVE, TACHY, WITH BIS 50'S. PROPOFOL INCREASED TO 60MCG FROM 50MCG.
--- NOTE | 2021-07-01 09:40 | NUR ---
BP CONT TO BE PROFOUNDLY HTN DESPITE HYDRALAZINE PUSH. PROPOFOL INCREASED TO 70MCG, FENT 25MCG GIVEN FOR BIS 40-50'S. BP NOW 140/76
--- NOTE | 2021-07-01 10:21 | NUR ---
DR VARGAS AT BEDSIDE, FULL UPDATE GIVEN.
--- NOTE | 2021-07-01 11:10 | NUR ---
PT HYPERTENSIVE, TACHYCARDIC W INCREASED ECTOPY, PAC'S/PVC'S. SMALL RUN OF VT <5BEATS. DR PANG NOTIFIED. STAT PHOS ORDERED. MAG FROM 06/30 HIGH. LABETALOL 20MG IVP GIVEN. HEART RATE NOW 90'S, BP IMPROVED
[2021-07-01 11:50] LABS: Phosphorus, Blood 3.1 mg/dL (2.5-4.9); Vancomycin, Trough 15.2 ug/mL (5.0-10.0)
--- NOTE | 2021-07-01 12:02 | NUR ---
BP/HR REMAIN STABLE. TO4 4/4, PT REMAINS ADEQUATELY SEDATED AND PARALYZED. BIS 40'S. AFEBRILE.
--- NOTE | 2021-07-01 12:12 | NUR ---
VHP TUBE FEEDS STARTED AT 15CC/HR.
--- NOTE | 2021-07-01 12:38 | NUR ---
PT'S GIVEN UPDATE VIA PHONE.
--- NOTE | 2021-07-01 17:13 | NUR ---
PT BP TRENDING DOWN, PROPOFOL DECREASED TO 60MCG, BIS 30'S, TO4 4/4, PT ADEQWUATELY PARALYZED. BP CONT TO TREND DOWN W MAP <65. DR VARGAS CALLED. FLUID BOLUS FOLLOWED BY LEVOPHED ORDERED IF NEEDED.
--- NOTE | 2021-07-01 18:07 | NUR ---
PT CONTINUES TO BE HYPOTENSIVE AFTER 500CC BOLUS. DR VARGAS NOTIFIED. 2ND 500CC BOLUS STARTED, LEVOPHED ON HAND
--- NOTE | 2021-07-01 18:24 | NUR ---
MAP <65 AFTER 2ND BOLUS COMPLETE. LEVOPHED GTT STARTED AT 3MCG
--- NOTE | 2021-07-01 18:46 | NUR ---
PT TOLERATING VENT, FIO2 AT 60%. PROPOFOL HAS BEEN DECREASED TO 50MCG, BIS 30'S. LEVOPHED AT 3MCG, NIMBEX AT 2MCG, PT REMAINS ADEQUATELY PARALYZED
--- NOTE | 2021-07-01 20:47 | NUR ---
Assume care for patient at 1900. Vented [facility] minimal secretion via his ETT. Levophed drip on hold for sbp above 200. At this point TOF is 0/4 at an amp of 9.
[2021-07-02 04:39] LABS: Hematocrit 28.3 % (37.0-53.0); Hemoglobin 10.4 g/dL (13.5-17.5); Mean Corpuscular HGB 33.3 pg (26.0-34.0); Mean Corpuscular HGB Conc 36.7 g/dL (31.5-36.5); Mean Corpuscular Volume 91 fL (80-100); Mean Platelet Volume 9.8 fL (9.1-12.4); NRBC Auto 0.9 /100 WBC (0.0-0.2); Platelet Count 376 K/mm3 (150-400); RDW Coefficient Variation 14.6 % (11.7-14.2); RDW Standard Deviation 48.9 fL (35.1-46.3); Red Blood Cell Count 3.12 M/mm3 (4.30-5.90); White Blood Cell Count 11.34 K/mm3 (4.00-11.30)
[2021-07-02 05:05] LABS: BAND PERCENT MAN 5 % (0-8); BASOPHILS PERCENT MAN 0 % (0-2); EOSINOPHILS PERCENT MAN 0 % (0-6); LYMPHOCYTES ABSOLUTE MAN 0.56 K/mm3 (0.84-5.20); LYMPHOCYTES PERCENT MAN 5 % (21-46); MONOCYTES ABSOLUTE MAN 0.79 K/mm3 (0.16-1.47); MONOCYTES PERCENT MAN 7 % (4-13); NEUTROPHILS ABSOLUTE MAN 9.97 K/mm3 (1.96-9.15); SEG NEUTROPHILS PERCENT MAN 83 % (41-73); TOTAL CELLS COUNTED 100
[2021-07-02 06:13] LABS: Albumin, Blood 1.6 g/dL (3.4-5.0); Anion Gap 7 mmol/L (6-16); Blood Urea Nitrogen 17 mg/dL (8-24); Bun/Creatinine Ratio 39.7 (12.0-20.0); CO2, Blood 23 mmol/L (21-32); Calcium, Blood 6.5 mg/dL (8.5-10.1); Chloride, Blood 99 mmol/L (98-108); Creatinine, Blood 0.43 mg/dL (0.60-1.20); Glomerular Filtration Rate >60 (60-); Glucose, Blood 207 mg/dL (70-99); Magnesium, Blood 2.2 mg/dL (1.6-2.4); Phosphorus, Blood 2.8 mg/dL (2.5-4.9); Potassium, Blood 4.9 mmol/L (3.5-5.5); Sodium, Blood 129 mmol/L (136-145)
--- NOTE | 2021-07-02 07:36 | NUR ---
Patient sedated and vented with scant secretion via ETT. His blood pressur very high and labatalol and hydralyzine were interchangeably administered. No distress noted.
--- NOTE | 2021-07-02 07:44 | NUR ---
CARE OF PT ASSUMED AT 0700. PT HTN W SBP>200. LEBATALOL AND HYDRALAZINE HAD BEEN GIVEN RECENTLY. PT'S BIS 60'S. FENTANYL 25MCG, VERSED 2 MG GIVEN IV. BP NOW 149/74. SATS 87% ON 70% FIO2, AIR LEAK TO CUFF. 1CC AIR PLACED, AIR LEAK RESOLVED. SATS NOW 91%.
--- NOTE | 2021-07-02 09:43 | NUR ---
DR VARGAS AT PT'S BEDSIDE, FULL UPDATE GIVEN. VERSED GTT TO BE STARTED
--- NOTE | 2021-07-02 10:59 | NUR ---
Pt given full bedbath, luca well. Versed gtt started at 1mg/hr and is now at 3mg/hr. BP improved, BIS 30's, TO4 4/4. Pt is adequately paralyzed.
[2021-07-02 12:26] LABS: Vancomycin, Trough 20.6 ug/mL (5.0-10.0)
--- NOTE | 2021-07-02 13:06 | NUR ---
BIS 20'S, MAPS MID TO HIGH 50'S. VERSED PLACED ON STANDBY, PROPOFOL DECREASED TO 40. BIS NOW MID 30'S. BP IMPROVING W MAPS >60. TO4 4/, FAINT, PT ADEQUATELY PARALYZED.
--- NOTE | 2021-07-02 14:57 | NUR ---
BIS 60'S, PT VERY HYPERTENSIVE AGAIN W SBP >200. VERSED TITRATED BACK UP TO 5MG/HR, PROPOFOL INCREASED TO 50MCG
--- NOTE | 2021-07-02 15:59 | NUR ---
FENT FIELD AGENT DC'D AND WASTED W OPAL ALVAREZ RN. BIS 30-40'S, BP STABLE, TO4 FAINT 4/4 AT 10AMPS, PT REMAINS ADEQUATELY PARALYZED. SATS 92% ON 60% FIO2.
--- NOTE | 2021-07-02 17:38 | NUR ---
BIS 50'S, PT TACHY AT 110, AND HYPERTENSIVE. DILAUDID 1MG GIVEN. VERSED UP TO 7MG/HR, PROP AT 60MCG. NIMBEX DECREASED TO 1MCG TO CHECK NEURO STATUS.
--- NOTE | 2021-07-02 18:52 | NUR ---
DR VARGAS GIVEN UPDATE. BIS NOW 20-30, STARTING TO TITRATE VERSED DOWN. PT DOING WELL WITH NIMBEX AT 1MCG. RESTRAINTS PLACED, NIMBEX TO BE TITRATED OFF TOLERATED.
--- NOTE | 2021-07-02 20:25 | NUR ---
aSSUMED CARE AT 1900. Patient intubated and on versed drip at 6mg/hr, Propofol drip at 50mcg/kg/min and Nimbex at 1mcg/kg/min. Bis in place and at 32 to 70 at this time also on the TOF patint is giving 3/4 on an amp of 6. No distress. Suctioned for small evans thin secretion via ETT. Mouthcare performed.
[2021-07-03 05:04] LABS: Hematocrit 27.2 % (37.0-53.0); Hemoglobin 9.8 g/dL (13.5-17.5); Mean Corpuscular HGB 33.4 pg (26.0-34.0); Mean Corpuscular Volume 93 fL (80-100); Mean Platelet Volume 9.5 fL (9.1-12.4); NRBC ABSOLUTE 0.02 K/mm3 (0.00-0.02); NRBC Auto 0.2 /100 WBC (0.0-0.2); Platelet Count 438 K/mm3 (150-400); RDW Coefficient Variation 14.6 % (11.7-14.2); RDW Standard Deviation 49.4 fL (35.1-46.3); Red Blood Cell Count 2.93 M/mm3 (4.30-5.90); White Blood Cell Count 13.13 K/mm3 (4.00-11.30)
[2021-07-03 05:26] LABS: Magnesium, Blood 2.6 mg/dL (1.6-2.4)
[2021-07-03 06:02] LABS: BAND PERCENT MAN 10 % (0-8); BASOPHILS PERCENT MAN 0 % (0-2); EOSINOPHILS PERCENT MAN 0 % (0-6); LYMPHOCYTES ABSOLUTE MAN 1.05 K/mm3 (0.84-5.20); LYMPHOCYTES PERCENT MAN 8 % (21-46); MONOCYTES PERCENT MAN 0 % (4-13); MYELOCYTE ABSOLUTE MAN 0.65 K/mm3 (0.00-0.00); MYELOCYTE PERCENT MAN 5 % (0-0); NEUTROPHILS ABSOLUTE MAN 11.42 K/mm3 (1.96-9.15); SEG NEUTROPHILS PERCENT MAN 77 % (41-73); TOTAL CELLS COUNTED 100
[2021-07-03 06:13] LABS: Anion Gap 7 mmol/L (6-16); Blood Urea Nitrogen 23 mg/dL (8-24); Bun/Creatinine Ratio 43.4 (12.0-20.0); CO2, Blood 25 mmol/L (21-32); Chloride, Blood 102 mmol/L (98-108); Creatinine, Blood 0.53 mg/dL (0.60-1.20); Glomerular Filtration Rate >60 (60-); Glucose, Blood 225 mg/dL (70-99); Phosphorus, Blood 3.1 mg/dL (2.5-4.9); Sodium, Blood 134 mmol/L (136-145)
[2021-07-03 06:25] LABS: Calcium, Blood 7.3 mg/dL (8.5-10.1)
--- NOTE | 2021-07-03 06:55 | NUR ---
No acute clinical changes. Patient vented and during the night his bp was gong up and so dilaudid 2mg iv was administered with good result. Scant secretion. Patient repositioned from side to side during the night. No bowel movement. No distress noted
--- NOTE | 2021-07-03 07:15 | NUR ---
Assumed care of pt at 0700 with Chanell SAGASTUME.
--- NOTE | 2021-07-03 12:00 | NUR ---
No acute changes to shift assessment.
--- NOTE | 2021-07-03 18:39 | NUR ---
SHIFT SUMMARY Neuro: Receiving propofol at 50 mcg/kg/min. Versed 6 mg/hr. BIS 40-60. Nimbex 2 mcg/kg/min. TOF 3/4. Unresponsive. Cough and gag absent. PERRL. No movement noted to extremities. Musculoskeletal: Mobility limited by cords, lines, tubes, intubation, and sedation. Pt receiving paralytic for ventilator tolerance. Respiratory: 8.0 cm ETT remains at 27 cm at teeth placement. Vent settings ACVC- 26/450/12/90%. Actual RR 26. Tidal volumes approx 450 ml. SpO2 90%. No sputum suctioned from ETT this shift. Lungs diminished t/o. Cardiac: SR per monitor. BP stable. High at times during shift but this resolves when pt's chronic pain is medicated. No edema. Capillary refill less than 3 seconds BUE and BLE. 2+ pulses radial, pedal, and posttibial. Unremarkable heart sounds. Pt has PICC to E. GI: OG tube with feeds and flushes per orders. Hypoactive BT. No signs of abd tenderness with palpation. : Abebe catheter in place with excellent output of clear, yellow urine. Skin: Unremarkable. Psychosocial: Unable to assess pt due to intubation and sedation. This RN did not have contact with pt's family today. Dr Powell updated pt's spouse on plan of care. Will continue to closely monitor until care handoff and bedside report with oncoming RN.
--- NOTE | 2021-07-03 22:35 | NUR ---
Assumed care at 1900. patient vented and on sedation and paralytic drips. At the beginning of this shift his sbp went as high as 200 and labetolol 20mg was administered with good result of sbp below 130, also dilaudid 2mg iv was administered. Will continue to monitor and perform care.
[2021-07-04 04:07] LABS: Hematocrit 27.3 % (37.0-53.0); Hemoglobin 10.1 g/dL (13.5-17.5); Mean Corpuscular HGB 34.6 pg (26.0-34.0); Mean Corpuscular Volume 94 fL (80-100); Mean Platelet Volume 9.7 fL (9.1-12.4); NRBC ABSOLUTE 0.03 K/mm3 (0.00-0.02); NRBC Auto 0.2 /100 WBC (0.0-0.2); Platelet Count 421 K/mm3 (150-400); RDW Coefficient Variation 14.6 % (11.7-14.2); Red Blood Cell Count 2.92 M/mm3 (4.30-5.90); White Blood Cell Count 12.84 K/mm3 (4.00-11.30)
[2021-07-04 04:28] LABS: Magnesium, Blood 2.4 mg/dL (1.6-2.4)
[2021-07-04 04:33] LABS: BAND PERCENT MAN 5 % (0-8); BASOPHILS PERCENT MAN 0 % (0-2); EOSINOPHILS ABSOLUTE MAN 0.12 K/mm3 (0.00-0.68); EOSINOPHILS PERCENT MAN 1 % (0-6); LYMPHOCYTES ABSOLUTE MAN 1.02 K/mm3 (0.84-5.20); LYMPHOCYTES PERCENT MAN 8 % (21-46); METAMYELOCYTE ABSOLUTE MAN 0.12 K/mm3 (0.00-0.00); METAMYELOCYTE PERCENT MAN 1 % (0-0); MONOCYTES ABSOLUTE MAN 1.02 K/mm3 (0.16-1.47); MONOCYTES PERCENT MAN 8 % (4-13); MYELOCYTE ABSOLUTE MAN 0.51 K/mm3 (0.00-0.00); MYELOCYTE PERCENT MAN 4 % (0-0); NEUTROPHILS ABSOLUTE MAN 10.01 K/mm3 (1.96-9.15); SEG NEUTROPHILS PERCENT MAN 73 % (41-73); TOTAL CELLS COUNTED 100
[2021-07-04 04:55] LABS: Albumin, Blood 1.7 g/dL (3.4-5.0); Anion Gap 5 mmol/L (6-16); Blood Urea Nitrogen 25 mg/dL (8-24); Bun/Creatinine Ratio 51.9 (12.0-20.0); CO2, Blood 27 mmol/L (21-32); Calcium, Blood 7.2 mg/dL (8.5-10.1); Chloride, Blood 102 mmol/L (98-108); Creatinine, Blood 0.48 mg/dL (0.60-1.20); Glomerular Filtration Rate >60 (60-); Glucose, Blood 225 mg/dL (70-99); Potassium, Blood 4.4 mmol/L (3.5-5.5); Sodium, Blood 134 mmol/L (136-145)
--- NOTE | 2021-07-04 07:09 | NUR ---
Patient remained vented. No acute clinical changes. Repositioned from side to side. No distress noted
[2021-07-04 13:19] LABS: Vancomycin, Trough 18.1 ug/mL (5.0-10.0)
--- NOTE | 2021-07-04 22:23 | NUR ---
DILAUDED GIVEN - DIFFICULTY ASSESSING PAIN USING CPOT AND FLACC SCORES BECAUSE PATIENT IS SEDATED AND PARALYZED. PAIN BASED OFF OF INCREASED HR AND BP. DILAUDED GIVEN WITH LABETOLOL. 5 MIN HR AND NBP CHECK HAS IMPROVED HR AND NBP ALREADY. HR NOW 89. NBP 160/75. WILL CONTINUE TO MONITOR.
--- NOTE | 2021-07-05 03:05 | NUR ---
DR. SHEPARD NOTIFIED OF TITRATION OF PARALYTIC PER ORDER. REQUEST FOR RESTRAINT ORDER PARALYTIC IS BEING WEANED DOWN. CONFIRMED ORDER.
[2021-07-05 04:00] LABS: BASOPHILS ABSOLUTE AUTO 0.04 K/mm3 (0.00-0.23); BASOPHILS PERCENT AUTO 0 % (0-2); EOSINOPHILS ABSOLUTE AUTO 0.05 K/mm3 (0.00-0.68); EOSINOPHILS PERCENT AUTO 0 % (0-6); Hematocrit 32.3 % (37.0-53.0); Hemoglobin 10.2 g/dL (13.5-17.5); IMMATURE GRAN ABSOLUTE AUTO 1.06 K/mm3 (0.00-0.10); IMMATURE GRAN PERCENT AUTO 7 % (0-1); LYMPHOCYTES ABSOLUTE AUTO 0.66 K/mm3 (0.84-5.20); LYMPHOCYTES PERCENT AUTO 4 % (21-46); MONOCYTES ABSOLUTE AUTO 1.54 K/mm3 (0.16-1.47); MONOCYTES PERCENT AUTO 10 % (4-13); Mean Corpuscular HGB 29.1 pg (26.0-34.0); Mean Corpuscular HGB Conc 31.6 g/dL (31.5-36.5); Mean Corpuscular Volume 92 fL (80-100); Mean Platelet Volume 9.2 fL (9.1-12.4); NEUTROPHILS ABSOLUTE AUTO 12.34 K/mm3 (1.96-9.15); NEUTROPHILS PERCENT AUTO 79 % (41-73); NRBC ABSOLUTE 0.03 K/mm3 (0.00-0.02); NRBC Auto 0.2 /100 WBC (0.0-0.2); Platelet Count 540 K/mm3 (150-400); RDW Coefficient Variation 14.6 % (11.7-14.2); RDW Standard Deviation 49.3 fL (35.1-46.3); White Blood Cell Count 15.69 K/mm3 (4.00-11.30)
[2021-07-05 04:27] LABS: Anion Gap 4 mmol/L (6-16); Blood Urea Nitrogen 29 mg/dL (8-24); Bun/Creatinine Ratio 55.7 (12.0-20.0); CO2, Blood 31 mmol/L (21-32); Calcium, Blood 8.7 mg/dL (8.5-10.1); Chloride, Blood 105 mmol/L (98-108); Creatinine, Blood 0.52 mg/dL (0.60-1.20); Glomerular Filtration Rate >60 (60-); Glucose, Blood 204 mg/dL (70-99); Potassium, Blood 4.5 mmol/L (3.5-5.5); Sodium, Blood 140 mmol/L (136-145)
[2021-07-05 04:36] LABS: BAND PERCENT MAN 1 % (0-8); BASOPHILS PERCENT MAN 0 % (0-2); EOSINOPHILS ABSOLUTE MAN 0.15 K/mm3 (0.00-0.68); EOSINOPHILS PERCENT MAN 1 % (0-6); LYMPHOCYTES ABSOLUTE MAN 0.47 K/mm3 (0.84-5.20); LYMPHOCYTES PERCENT MAN 3 % (21-46); METAMYELOCYTE ABSOLUTE MAN 0.94 K/mm3 (0.00-0.00); METAMYELOCYTE PERCENT MAN 6 % (0-0); MONOCYTES ABSOLUTE MAN 1.72 K/mm3 (0.16-1.47); MONOCYTES PERCENT MAN 11 % (4-13); NEUTROPHILS ABSOLUTE MAN 12.39 K/mm3 (1.96-9.15); SEG NEUTROPHILS PERCENT MAN 78 % (41-73); TOTAL CELLS COUNTED 100
--- NOTE | 2021-07-05 06:11 | NUR ---
END OF SHIFT SUMMARY. INCREASE PROPOFOL, INCRESE VERSED, DECREASE NIMBEX. REFLEXES COMING BACK NIMBEX IS WEANED. TOLERATING VENT. HTN EPISODE LAST NIGHT. GIVEN LABETOLOL AND DILAUDED PRN. RESIDUALS, TURNS, ORAL CARE, I/O, RESTRAINT CHECKS AND CHARTING AND MED PASSES ASSUMED CARE BY DANYEL JONES RN. OTHERWISE CARBON COATER MACHINE OPERATOR IS PRIMARY RN.
--- NOTE | 2021-07-05 18:23 | NUR ---
PT OFF NIMBEX AND TOLERATING WELL. DOWN TO 2 ON VERSED.
--- NOTE | 2021-07-05 21:20 | NUR ---
Assumed for at 1900. Patient sedated and vented. At this time his sbp is above 160 and so Versed drip increased to 3mg/hr. No distress noted.
[2021-07-06 04:53] LABS: Hematocrit 31.6 % (37.0-53.0); Hemoglobin 10.9 g/dL (13.5-17.5); Mean Corpuscular HGB 31.5 pg (26.0-34.0); Mean Corpuscular HGB Conc 34.5 g/dL (31.5-36.5); Mean Corpuscular Volume 91 fL (80-100); Mean Platelet Volume 9.7 fL (9.1-12.4); NRBC ABSOLUTE 0.06 K/mm3 (0.00-0.02); NRBC Auto 0.3 /100 WBC (0.0-0.2); Platelet Count 554 K/mm3 (150-400); RDW Coefficient Variation 14.6 % (11.7-14.2); RDW Standard Deviation 48.5 fL (35.1-46.3); Red Blood Cell Count 3.46 M/mm3 (4.30-5.90); White Blood Cell Count 17.97 K/mm3 (4.00-11.30)
[2021-07-06 05:13] LABS: Albumin, Blood 1.9 g/dL (3.4-5.0); Anion Gap 6 mmol/L (6-16); Blood Urea Nitrogen 27 mg/dL (8-24); Bun/Creatinine Ratio 51.4 (12.0-20.0); CO2, Blood 30 mmol/L (21-32); Calcium, Blood 7.7 mg/dL (8.5-10.1); Chloride, Blood 99 mmol/L (98-108); Creatinine, Blood 0.53 mg/dL (0.60-1.20); Glomerular Filtration Rate >60 (60-); Glucose, Blood 235 mg/dL (70-99); Magnesium, Blood 2.6 mg/dL (1.6-2.4); Sodium, Blood 135 mmol/L (136-145)
[2021-07-06 05:39] LABS: BASOPHILS PERCENT MAN 0 % (0-2); EOSINOPHILS ABSOLUTE MAN 0.17 K/mm3 (0.00-0.68); EOSINOPHILS PERCENT MAN 1 % (0-6); LYMPHOCYTES ABSOLUTE MAN 1.25 K/mm3 (0.84-5.20); LYMPHOCYTES PERCENT MAN 7 % (21-46); METAMYELOCYTE ABSOLUTE MAN 0.71 K/mm3 (0.00-0.00); METAMYELOCYTE PERCENT MAN 4 % (0-0); MONOCYTES ABSOLUTE MAN 2.33 K/mm3 (0.16-1.47); MONOCYTES PERCENT MAN 13 % (4-13); MYELOCYTE ABSOLUTE MAN 0.17 K/mm3 (0.00-0.00); MYELOCYTE PERCENT MAN 1 % (0-0); NEUTROPHILS ABSOLUTE MAN 13.29 K/mm3 (1.96-9.15); SEG NEUTROPHILS PERCENT MAN 74 % (41-73); TOTAL CELLS COUNTED 100
--- NOTE | 2021-07-06 06:40 | NUR ---
Patient remained vented. Suctioned for copious amount of clear thick secretion via ETT and orally. Repositioned from side to side. propofol remained at 60mcg /kg/min and versed at 4mg/hr. VSS
[2021-07-06 12:36] LABS: Vancomycin, Trough 19.1 ug/mL (5.0-10.0)
--- NOTE | 2021-07-06 17:15 | NUR ---
80ML OF VERSED WASTED WITH MARANDA RN
--- NOTE | 2021-07-06 19:19 | NUR ---
ASSUMED CARE OF PT AT 1900, REPORT RECEIVED FROM EUGENIA SAGASTUME. PT INTUBATED AND SEDATED. VENT SETTINGS AC 24/450/12/50%, SPO2 >90%. PT OPENS EYES SPONTANEOUSLY, NOT FOLLOWING COMMANDS AT THIS TIME OR TRACKING WITH EYES. LUNGS COARSE WITH DIMINISHED BASES, OCCASIONAL COUGH, SCANT AMOUNT OF THICK WHITE SECRETIONS VIA ETT. MODERATE AMOUNT OF ORAL SECRETIONS. PT CURRENTLY HAS PROPOFOL INFUSING AT 60 MCG/KG/MIN. HR 80'S SINUS ON MONITOR, SBP 150'S. HYPOACTIVE BOWEL TONES. FORD DRAINING CLEAR YELLOW URINE TO GRAVITY. PULSES PALPABLE IN ALL EXTREMITIES.
[2021-07-07 04:13] LABS: BASOPHILS ABSOLUTE AUTO 0.03 K/mm3 (0.00-0.23); BASOPHILS PERCENT AUTO 0 % (0-2); EOSINOPHILS ABSOLUTE AUTO 0.05 K/mm3 (0.00-0.68); EOSINOPHILS PERCENT AUTO 0 % (0-6); Hematocrit 34.1 % (37.0-53.0); Hemoglobin 10.9 g/dL (13.5-17.5); IMMATURE GRAN ABSOLUTE AUTO 0.57 K/mm3 (0.00-0.10); IMMATURE GRAN PERCENT AUTO 4 % (0-1); LYMPHOCYTES ABSOLUTE AUTO 0.58 K/mm3 (0.84-5.20); LYMPHOCYTES PERCENT AUTO 4 % (21-46); MONOCYTES PERCENT AUTO 9 % (4-13); Mean Corpuscular HGB 29.1 pg (26.0-34.0); Mean Corpuscular Volume 91 fL (80-100); Mean Platelet Volume 9.3 fL (9.1-12.4); NEUTROPHILS ABSOLUTE AUTO 12.59 K/mm3 (1.96-9.15); NEUTROPHILS PERCENT AUTO 83 % (41-73); NRBC ABSOLUTE 0.02 K/mm3 (0.00-0.02); NRBC Auto 0.1 /100 WBC (0.0-0.2); Platelet Count 571 K/mm3 (150-400); RDW Coefficient Variation 14.5 % (11.7-14.2); RDW Standard Deviation 47.8 fL (35.1-46.3); Red Blood Cell Count 3.74 M/mm3 (4.30-5.90); White Blood Cell Count 15.12 K/mm3 (4.00-11.30)
[2021-07-07 04:27] LABS: Albumin, Blood 2.1 g/dL (3.4-5.0); Anion Gap 4 mmol/L (6-16); Blood Urea Nitrogen 26 mg/dL (8-24); Bun/Creatinine Ratio 48.3 (12.0-20.0); CO2, Blood 31 mmol/L (21-32); Calcium, Blood 8.6 mg/dL (8.5-10.1); Chloride, Blood 102 mmol/L (98-108); Creatinine, Blood 0.54 mg/dL (0.60-1.20); Glomerular Filtration Rate >60 (60-); Glucose, Blood 213 mg/dL (70-99); Magnesium, Blood 2.6 mg/dL (1.6-2.4); Phosphorus, Blood 4.7 mg/dL (2.5-4.9); Potassium, Blood 4.4 mmol/L (3.5-5.5); Sodium, Blood 137 mmol/L (136-145)
--- NOTE | 2021-07-07 05:50 | NUR ---
SHIFT SUMMARY PT REMAINS INTUBATED AND SEDATED. VENT SETTINGS CONTINUE AC 24/450/12/50%. PROPOFOL INFUSING AT 40 MCG/KG/MIN. PT SPONTANEOUSLY OPENS EYES, DOES NOT TRACK, DOES NOT FOLLOW ANY COMMANDS. NO MOVEMENT NOTED TO EXTREMITIES. HR 80'S SINUS ON MONITOR, SBP WITH MAP >65. BOWEL TONES ACTIVE. FORD DRAINING CLEAR YELLOW URINE TO GRAVITY. PT WITH OCCASIONAL COUGHING, SCANT AMOUNT OF THICK WHITE SECRETIONS VIA ETT. MODERATE AMOUNT OF ORAL SECRETIONS. TF VHP RUNNING AT GOAL RATE OF 15 ML/HR WITH 30 Q4H WATER FLUSHES.
--- NOTE | 2021-07-07 07:00 | NUR ---
PT CARE ASSUMED AFTER MAP DRAFTER RN REPORT. PT OPENS EYES SPONTANEOUSLY DOES NOT TRACK, PURPOSELY MOVE EXT OR FOLLOW COMMANDS. COUGHS REPEATEDLY WITH STIMULATION, ORAL CARE MD AWARE.
--- NOTE | 2021-07-07 17:28 | NUR ---
PT STABLE THROUGH DAY. UNABLE TO WEAN PROPOFOL DUE TO EXCESSIVE COUGHING WITH WAKING UP AND STIMULI
--- NOTE | 2021-07-07 21:29 | NUR ---
ASSUMED CARE OF PT AT 1900, REPORT RECEIVED FROM EUGENIA SAGASTUME. PT INTUBATED, VENT SETTINGS PS 10/10 40% FIO2 WITH SPO2 >90%. LUNGS CLEAR WITH DIM BASES, FREQUENT COUGHING FITS, SCANT THICK WHITE SECRETIONS VIA ETT. SMALL AMOUNT OF SECRETIONS ORALLY. PROPOFOL INFUSING AT 40 MCG/KG/MIN. BOWEL TONES ACTIVE, PT WITH LARGE LIQUID BM. OG WITH TF VHP RUNNING AT GOAL RATE OF 15 ML/HR WITH 30 Q4H WATER FLUSHES.
[2021-07-08 04:32] LABS: BASOPHILS ABSOLUTE AUTO 0.02 K/mm3 (0.00-0.23); BASOPHILS PERCENT AUTO 0 % (0-2); EOSINOPHILS ABSOLUTE AUTO 0.04 K/mm3 (0.00-0.68); EOSINOPHILS PERCENT AUTO 0 % (0-6); Hematocrit 35.8 % (37.0-53.0); Hemoglobin 11.6 g/dL (13.5-17.5); IMMATURE GRAN ABSOLUTE AUTO 0.35 K/mm3 (0.00-0.10); IMMATURE GRAN PERCENT AUTO 2 % (0-1); LYMPHOCYTES ABSOLUTE AUTO 0.78 K/mm3 (0.84-5.20); LYMPHOCYTES PERCENT AUTO 5 % (21-46); MONOCYTES ABSOLUTE AUTO 1.47 K/mm3 (0.16-1.47); MONOCYTES PERCENT AUTO 9 % (4-13); Mean Corpuscular HGB 29.4 pg (26.0-34.0); Mean Corpuscular HGB Conc 32.4 g/dL (31.5-36.5); Mean Corpuscular Volume 91 fL (80-100); Mean Platelet Volume 9.3 fL (9.1-12.4); NEUTROPHILS ABSOLUTE AUTO 12.98 K/mm3 (1.96-9.15); NEUTROPHILS PERCENT AUTO 83 % (41-73); Platelet Count 547 K/mm3 (150-400); RDW Coefficient Variation 14.7 % (11.7-14.2); Red Blood Cell Count 3.94 M/mm3 (4.30-5.90); White Blood Cell Count 15.64 K/mm3 (4.00-11.30)
[2021-07-08 04:49] LABS: Anion Gap 5 mmol/L (6-16); Blood Urea Nitrogen 24 mg/dL (8-24); Bun/Creatinine Ratio 44.2 (12.0-20.0); CO2, Blood 30 mmol/L (21-32); Calcium, Blood 8.7 mg/dL (8.5-10.1); Chloride, Blood 104 mmol/L (98-108); Creatinine, Blood 0.54 mg/dL (0.60-1.20); Glomerular Filtration Rate >60 (60-); Glucose, Blood 170 mg/dL (70-99); Magnesium, Blood 2.6 mg/dL (1.6-2.4); Phosphorus, Blood 4.1 mg/dL (2.5-4.9); Potassium, Blood 4.1 mmol/L (3.5-5.5); Sodium, Blood 139 mmol/L (136-145)
--- NOTE | 2021-07-08 06:28 | NUR ---
SHIFT SUMMARY PT REMAINS INTUBATED AND SEDATED. NO CHANGES TO VENT SETTINGS THIS SHIFT, CONTINUES AT PS 10/10 40% FIO2. PROPOFOL CONTINUES AT 40 MCG/KG/MIN. PT SPONTANEOUSLY OPENS EYES, NOT TRACKING OR FOLLOWING COMMANDS. NO MOVEMENT TO EXTREMITIES NOTED THIS SHIFT. PT WITH 2 BM'S THIS SHIFT. LUNGS CLEAR WITH DIM BASES. OCCASIONAL COUGHING, SCANT THICK WHITE SECRETIONS VIA ETT. SMALL AMOUNT OF ORAL SECRETIONS.
[2021-07-08 12:24] LABS: Vancomycin, Trough 19.2 ug/mL (5.0-10.0)
--- NOTE | 2021-07-08 17:19 | NUR ---
PT OFF OF PROPOFOL SINCE 1629. FOLLOWS COMMANDS. MOVES ALL EXT, LIFTS HEAD OFF PILLOW AND SHAKES HEAD YES AND NO APPROPRIATELY. MD AWARE. TO CONTINUE NO SEDATION DURING THE DAY AND SEDATION TO REST AT NIGHT.
--- NOTE | 2021-07-08 21:27 | NUR ---
ASSUMED CARE @1900 PATIENT IS ALERT, NODDING YES/NO TO QUESTIONS, ABLE TO FOLLOW COMMANDS. RUBBER CUTTER IS WEAK BILATERAL, PATIENT ABLE TO WIGGLE TOES. LUNGS SOUNDS COARSE IN UPPER LOBES AND DIMINISHED IN THE BASES. VENT CHANGES FROM PRESSURE CONTROL TO AC/VC+ 24/450/10/40%. 02 SATS 94%. PROPOFOL INF, TITRATING FOR PROPER SEDATION. HR SR 100-120. PATIENT HAD VERY LARGE LIQUID STOOL, BED BATH GIVEN AND RECTAL TUBE PLACED. TF INFUSING @15 MLS/HR GOAL RATE, WITH Q4 HOUR FLUSHES OF 30 MLS. FORD DRAINING MAYURI URINE TO GRAVITY. RESTRAINTS IN PLACE FOR RISK OF EXTUBATION AND PROTECTION OF LINES AND CORDS.
[2021-07-09 04:34] LABS: BASOPHILS ABSOLUTE AUTO 0.03 K/mm3 (0.00-0.23); BASOPHILS PERCENT AUTO 0 % (0-2); EOSINOPHILS ABSOLUTE AUTO 0.25 K/mm3 (0.00-0.68); EOSINOPHILS PERCENT AUTO 2 % (0-6); Hematocrit 38.4 % (37.0-53.0); Hemoglobin 12.3 g/dL (13.5-17.5); IMMATURE GRAN ABSOLUTE AUTO 0.26 K/mm3 (0.00-0.10); IMMATURE GRAN PERCENT AUTO 2 % (0-1); LYMPHOCYTES ABSOLUTE AUTO 1.25 K/mm3 (0.84-5.20); LYMPHOCYTES PERCENT AUTO 8 % (21-46); MONOCYTES ABSOLUTE AUTO 1.91 K/mm3 (0.16-1.47); MONOCYTES PERCENT AUTO 13 % (4-13); Mean Corpuscular HGB 29.3 pg (26.0-34.0); Mean Corpuscular Volume 91 fL (80-100); Mean Platelet Volume 9.5 fL (9.1-12.4); NEUTROPHILS ABSOLUTE AUTO 11.18 K/mm3 (1.96-9.15); NEUTROPHILS PERCENT AUTO 75 % (41-73); Platelet Count 533 K/mm3 (150-400); RDW Standard Deviation 49.7 fL (35.1-46.3); White Blood Cell Count 14.88 K/mm3 (4.00-11.30)
[2021-07-09 04:52] LABS: Anion Gap 6 mmol/L (6-16); Blood Urea Nitrogen 26 mg/dL (8-24); Bun/Creatinine Ratio 44.4 (12.0-20.0); CO2, Blood 30 mmol/L (21-32); Chloride, Blood 105 mmol/L (98-108); Creatinine, Blood 0.59 mg/dL (0.60-1.20); Glomerular Filtration Rate >60 (60-); Glucose, Blood 143 mg/dL (70-99); Magnesium, Blood 2.7 mg/dL (1.6-2.4); Phosphorus, Blood 4.6 mg/dL (2.5-4.9); Potassium, Blood 3.4 mmol/L (3.5-5.5); Sodium, Blood 141 mmol/L (136-145)
--- NOTE | 2021-07-09 05:56 | NUR ---
SHIFT SUMMARY SEDATION TURNED OFF AND RT CHANGED VENT BACK TO PS 8/10 40% AT APPROX 0400. PATIENT IS ABLE TO FOLLOW COMMANDS NOW, NOD YES/NO. BP STABLE AT THIS TIME. ATIVAN GIVEN PRN THROUGH THE NIGHT FOR AGITATION. PATIENT REPOSITIONED Q2 HOURS, MAXIMUM ASSIST WITH 2+ PEOPLE. TUBE FEED INF. FORD DRAINING MAYURI URINE TO GRAVITY.
--- NOTE | 2021-07-09 07:55 | NUR ---
ASSUMED PT CARE AT 0715, PT HAS BEEN OFF SEDATION DURING NOC SHIFT, ON SBT 05/21, 40%. PT AWAKE, EYES OPEN, NODS YES/NO TO QUESTIONS APPROPIATELY, ABLE TO FOLLOW SIMPLE COMMANDS. PT HAVING FREQUENT COUGHING SPELLS AND OVERBRETHING VENT, ETT SUCTIONED, LARGE AMOUNT THIN WHITE SECRETIONS. PT HTN WITH SYSTOLICS IN 200. CALMING MEASURES UTILIZED. PT GIVEN DILAUDID FOR C/O PAIN SECONDARY TO ETT, AND HYDRALAZINE 10 MG. PT INFORMED OF PLAN, WAITING FOR MD TO DISCUSS IF PT WILL BE EXTUBATED NOW, OR PUT BACK ON SEDATION FOR COMFORT/COMPLIANCE WITH VENT. PT GIVEN 2 MG ATIVAN TO HELP WITH ANXIETY. TF OFF NOW PENDING EXTUBATION.
--- NOTE | 2021-07-09 18:23 | NUR ---
PT PLACED BACK ON PROP THIS MORNING HE WAS HYPERVENTILATING, HTN, TACHYCARDIC, AND HAVING DIFFICULTY TOLERATING VENT. PT REMAINED ON PROP AND VENT THROUGHOUT SHIFT, REQUIRING PEEP OF 10 AND NOT READY FOR EXTUBATION. PT NODS YES/NO, INTERMITTENTLY FOLLOWS SIMPLE COMMANDS. TF AT GOAL, GOOD UO VIA FC. POTASSIUM REPLACED. PTS AT BEDSIDE DURING VISITING HOURS, UPDATED ON PT STATUS AND POC.
--- NOTE | 2021-07-09 19:30 | NUR ---
REPORT RECEIVED-CARE ASSUMED-GTTS AND RATES NOTED IN FLOWSHEET.
--- NOTE | 2021-07-10 06:22 | NUR ---
END OF SHIFT NOTE PT REMAINS ON AC/VC+ VENT OVERNIGHT-SXN SMALL TO MOD AMTS SECREATIONS OVERNIGHT-LOW BP ISSUES-AJUSTED PROPOFOL OFF AND ON-SEE FLOWSHEET. ATIVAN GIVEN TO ASSIST WITH ANXIETY-SEE MAR. PT ALEART-FOLLOWS. SURGE SHIFT ASSESSMENT DONE Q4- VITALS/GTTS AND RATES NOTED IN FLOWSHEET. CONTINUE ASSESSMENTS AND CARE TILL REPORT OFF TO ONCOMING DAYSHIFLAVIO RN.
[2021-07-10 08:30] LABS: BASOPHILS ABSOLUTE AUTO 0.02 K/mm3 (0.00-0.23); BASOPHILS PERCENT AUTO 0 % (0-2); EOSINOPHILS ABSOLUTE AUTO 0.35 K/mm3 (0.00-0.68); EOSINOPHILS PERCENT AUTO 3 % (0-6); Hematocrit 33.3 % (37.0-53.0); Hemoglobin 10.7 g/dL (13.5-17.5); IMMATURE GRAN ABSOLUTE AUTO 0.21 K/mm3 (0.00-0.10); IMMATURE GRAN PERCENT AUTO 2 % (0-1); LYMPHOCYTES PERCENT AUTO 7 % (21-46); MONOCYTES ABSOLUTE AUTO 1.35 K/mm3 (0.16-1.47); MONOCYTES PERCENT AUTO 11 % (4-13); Mean Corpuscular HGB 29.6 pg (26.0-34.0); Mean Corpuscular HGB Conc 32.1 g/dL (31.5-36.5); Mean Corpuscular Volume 92 fL (80-100); Mean Platelet Volume 9.9 fL (9.1-12.4); NEUTROPHILS ABSOLUTE AUTO 9.64 K/mm3 (1.96-9.15); NEUTROPHILS PERCENT AUTO 77 % (41-73); Platelet Count 436 K/mm3 (150-400); RDW Coefficient Variation 15.1 % (11.7-14.2); RDW Standard Deviation 50.7 fL (35.1-46.3); Red Blood Cell Count 3.61 M/mm3 (4.30-5.90); White Blood Cell Count 12.47 K/mm3 (4.00-11.30)
[2021-07-10 08:47] LABS: Anion Gap 12 mmol/L (6-16); Blood Urea Nitrogen 38 mg/dL (8-24); Bun/Creatinine Ratio 47.1 (12.0-20.0); CO2, Blood 24 mmol/L (21-32); Calcium, Blood 8.5 mg/dL (8.5-10.1); Chloride, Blood 107 mmol/L (98-108); Creatinine, Blood 0.81 mg/dL (0.60-1.20); Glomerular Filtration Rate >60 (60-); Glucose, Blood 160 mg/dL (70-99); Potassium, Blood 3.2 mmol/L (3.5-5.5); Sodium, Blood 143 mmol/L (136-145)
--- NOTE | 2021-07-10 08:57 | NUR ---
[id number]: ASSUMED PT CARE, PT ABLE TO NOD YES/NO TO QUESTIONS, FOLLOW SIMPLE COMMANDS. RT AT BEDSIDE, PT NOW ON SBT, 07/19 35%. LUNGS DIM, SMALL AMOUNT SMALL WHITE SECRETIONS SUCTIONED VIA ETT. PROP ON SB. PT NODS YES TO FEELING ANXIOUS, GIVEN 2MG ATIVAN IV. TF TURNED OFF AT 0900 PENDING POTENTIAL EXTUBATION TODAY. OGT PLACEMENT CONFIRMED WITH AIR BOLUS. FC WITH ADEQUATE UO. PLAN TO DISCUSS EXTUBATION VS TRACH.
[2021-07-10 12:54] LABS: Vancomycin, Trough 27.3 ug/mL (5.0-10.0)
[2021-07-10 18:06] LABS: Vancomycin, Random 21.6 ug/mL
--- NOTE | 2021-07-10 18:19 | NUR ---
PT CONTINUES TO FOLLOW SIMPLE COMMANDS, ABLE TO NOD YES/NO TO QUESTIONS. PT SUSTAINED O2 SATS 93% AND GREATER ON SBT 07/19 AT 35%. VERY HOPEFUL FOR EXTUBATION TOMORROW. PHYSICAL THERAPY WORKED WITH PT, PT DID WELL WITH ACTIVITY. FENTANYL GIVEN PRN FOR C/O PAIN, ATIVAN PRN FOR ANXIETY. PROP OFF SINCE 0800. PT REPOSITIONED Q 2 HRS, UP TO CHAIR POSITION AT END OF SHIFT. GOOD UO, RECTAL TUBE IN PLACE. TF AT GOAL. K REPLACED. VANCO HELD SECONDARY TO CRITICAL VALUE 27.
--- NOTE | 2021-07-10 19:53 | NUR ---
ASSUMPTION OF CARE REPORT RECIEVED FROM DAY SHIFT RN. PT INTUBATED, ON SBT. PT FOLLOWS COMMANDS AND ANSWERS QUESTIONS WITH SHAKING HEAD YES OR NO. PT DENIES OR PAIN OR DISCOMFORT AT THIS TIME. PT ON NO CONTINOUS DRIPS AT THIS TIME. PT REMAINS IN RESTRAINTS DUE TO RISK OF EXTUBATION. SEE SHIFT ASSESSMENT.
[2021-07-11 04:46] LABS: BASOPHILS ABSOLUTE AUTO 0.03 K/mm3 (0.00-0.23); BASOPHILS PERCENT AUTO 0 % (0-2); EOSINOPHILS ABSOLUTE AUTO 0.29 K/mm3 (0.00-0.68); EOSINOPHILS PERCENT AUTO 3 % (0-6); Hematocrit 32.5 % (37.0-53.0); Hemoglobin 10.3 g/dL (13.5-17.5); IMMATURE GRAN PERCENT AUTO 1 % (0-1); LYMPHOCYTES ABSOLUTE AUTO 0.86 K/mm3 (0.84-5.20); LYMPHOCYTES PERCENT AUTO 9 % (21-46); MONOCYTES ABSOLUTE AUTO 1.42 K/mm3 (0.16-1.47); MONOCYTES PERCENT AUTO 14 % (4-13); Mean Corpuscular HGB 29.4 pg (26.0-34.0); Mean Corpuscular HGB Conc 31.7 g/dL (31.5-36.5); Mean Corpuscular Volume 93 fL (80-100); Mean Platelet Volume 9.4 fL (9.1-12.4); NEUTROPHILS ABSOLUTE AUTO 7.47 K/mm3 (1.96-9.15); NEUTROPHILS PERCENT AUTO 73 % (41-73); Platelet Count 401 K/mm3 (150-400); RDW Coefficient Variation 14.8 % (11.7-14.2); White Blood Cell Count 10.17 K/mm3 (4.00-11.30)
[2021-07-11 05:11] LABS: Anion Gap 6 mmol/L (6-16); Blood Urea Nitrogen 35 mg/dL (8-24); Bun/Creatinine Ratio 44.5 (12.0-20.0); CO2, Blood 25 mmol/L (21-32); Calcium, Blood 8.9 mg/dL (8.5-10.1); Chloride, Blood 111 mmol/L (98-108); Creatinine, Blood 0.79 mg/dL (0.60-1.20); Glomerular Filtration Rate >60 (60-); Glucose, Blood 135 mg/dL (70-99); Phosphorus, Blood 3.8 mg/dL (2.5-4.9); Potassium, Blood 3.8 mmol/L (3.5-5.5); Sodium, Blood 142 mmol/L (136-145)
--- NOTE | 2021-07-11 06:03 | NUR ---
SHIFT SUMMARY PT REMAINS INTUBATED AND ALERT. PT FOLLOWS COMMANDS AND NODS HEAD WHEN QUESTIONS ARE ASKED. FENTANYL & ATIVAN GIVEN DURING SHIFT FOR PAIN AND ANXIETY. PT TOLERATED WELL. HR REMAINS 90S-100S. NO HYPOTENSIVE EPISODE ON THIS SHIFT. NO ACUTE DISTRESS OR PAIN NOTED. REPORT TO BE GIVEN TO LIGIA RODRIGUEZ RN.
--- NOTE | 2021-07-11 13:33 | NUR ---
PT EXTUBATED TODAY AT 1250. PT WITH SPO2 OF 95% ON 2L NASAL CANNULA. PT ALERT, CONFUSED, STS THAT HE BELIEVES THAT HE HAS BEEN KIDNAPPED BUT IS ABLE TO BE CALMED. PT STS THAT HE IS AWARE THAT HE IS IN THE "[place] BUT OTHERWISE IS ONLY ORIENTED TO SELF. PT ALSO REPORTS THAT HE WAS ADMITTED 2 DAYS AGO. PT IS WORKING WITH PHYSCIAL THERAPY AT THIS TIME. VSS
--- NOTE | 2021-07-11 13:40 | NUR ---
PT ALSO REPORTED SOME NAUSEA, HE WAS TREATED WITH 4MG ZOFRAN FOR NAUSEA AND TUBE FEEDING IS STOPPED UNTIL NAUSEA RESOLVES
--- NOTE | 2021-07-11 16:50 | NUR ---
PT EXTUBATED AT 1250 TODAY, PT HAS TOLERATED 2L NC WELL SINCE EXTUBATION. NG WAS D/C UPON EXTUBATION ALONG WITH TUBE FEED. PT HAS WORKED WITH PHYSICAL THERAPY AND OCCUPATIONAL THERAPY IS ABOUT TO WORK WITH HIM, SPOKE WITH SPEECH THERAPY AND THEY WILL BE IN TO SEE HIM IN THE AM PT TO REMAIN NPO UNTIL THEN. PT'S HAS CLEARED IS LESS GURGLY SINCE EXTUBATION AT THE TIME OF THIS NOTE. PT ALERT, ANSWERING QUESTIONS MORE APPROPRIATELY BUT IS STILL QUITE CONFUSED. VSS. PT FOLLOWS COMMANDS, PT WAS ABLE TO HELP ROLL SELF DURING BED BATH THIS EVENING.
--- NOTE | 2021-07-11 19:31 | NUR ---
ASSUMPTION OF CARE REPORT RECEIVED FROM DAY SHIFT RN. PT EXTUBATED ON 2L @ N/C ON DAY SHIFT. PT CURRENTLY RESTING IN BED, ALERT TO SELF. DISORIENTED TO PLACE AND TIME.PT CURRENTLY NPO AND HAS A PENDING SPEECH CONSULT. NO ACUTE DISTRESS NOTED. SEE SHIFT ASSESSMENT.
[2021-07-11 21:29] LABS: Vancomycin, Trough 17.1 ug/mL (5.0-10.0)
[2021-07-12 05:38] LABS: BASOPHILS ABSOLUTE AUTO 0.02 K/mm3 (0.00-0.23); BASOPHILS PERCENT AUTO 0 % (0-2); EOSINOPHILS ABSOLUTE AUTO 0.34 K/mm3 (0.00-0.68); EOSINOPHILS PERCENT AUTO 4 % (0-6); Hematocrit 33.9 % (37.0-53.0); Hemoglobin 10.8 g/dL (13.5-17.5); IMMATURE GRAN ABSOLUTE AUTO 0.05 K/mm3 (0.00-0.10); IMMATURE GRAN PERCENT AUTO 1 % (0-1); LYMPHOCYTES ABSOLUTE AUTO 1.05 K/mm3 (0.84-5.20); LYMPHOCYTES PERCENT AUTO 12 % (21-46); MONOCYTES ABSOLUTE AUTO 1.21 K/mm3 (0.16-1.47); MONOCYTES PERCENT AUTO 14 % (4-13); Mean Corpuscular HGB 29.1 pg (26.0-34.0); Mean Corpuscular HGB Conc 31.9 g/dL (31.5-36.5); Mean Corpuscular Volume 91 fL (80-100); Mean Platelet Volume 9.4 fL (9.1-12.4); NEUTROPHILS ABSOLUTE AUTO 6.15 K/mm3 (1.96-9.15); NEUTROPHILS PERCENT AUTO 70 % (41-73); Platelet Count 464 K/mm3 (150-400); RDW Coefficient Variation 14.4 % (11.7-14.2); RDW Standard Deviation 48.2 fL (35.1-46.3); Red Blood Cell Count 3.71 M/mm3 (4.30-5.90); White Blood Cell Count 8.82 K/mm3 (4.00-11.30)
[2021-07-12 06:02] LABS: Albumin, Blood 2.2 g/dL (3.4-5.0); Anion Gap 7 mmol/L (6-16); Blood Urea Nitrogen 25 mg/dL (8-24); Bun/Creatinine Ratio 34.1 (12.0-20.0); CO2, Blood 26 mmol/L (21-32); Calcium, Blood 9.2 mg/dL (8.5-10.1); Chloride, Blood 107 mmol/L (98-108); Creatinine, Blood 0.73 mg/dL (0.60-1.20); Glomerular Filtration Rate >60 (60-); Glucose, Blood 107 mg/dL (70-99); Phosphorus, Blood 3.8 mg/dL (2.5-4.9); Potassium, Blood 3.7 mmol/L (3.5-5.5); Sodium, Blood 140 mmol/L (136-145)
--- NOTE | 2021-07-12 06:14 | NUR ---
SHIFT SUMMARY PT ALERT AND ORIENTED TO NAME. AT TIMES DISORIENTED TO PLACE AND TIME. PT PLEASANT. SLEPT THROUGH THE NIGHT. COMPLAINED OF PAIN TWICE, PRN PAIN MEDICATION GIVEN. BED BATH GIVEN ON THIS SHIFT. LEFT ARM PICC NOT GETTING BLOOD RETURN, ABLE TO FLUSH ALL LUMENS. NO ACUTE DISTRESS NOTED. REPORT TO BE GIVEN ON DAY SHIFT.
--- NOTE | 2021-07-12 11:48 | NUR ---
ASSUMED CARE/TRANSFER TO MEDICAL FLOOR REPORT FROM NEFTALY SAGASTUME AT 0700. PT RESTING IN BED. AWAKE. FOLLOWS SIMPLE DIRECTIONS. PLEASANT. KNOWS SELF, BIRTHDAY. WHEN ASKED LOCATION, REPLIES [place]. REORIENT PT, AFTERWARDS PT ALBE TO ANSWER ORIENTATION QUESTIONS CORRECTLY FOR MD. GENERALIZED WEAKNESS. ATTEMPTED TO HELP c ROLLS AND ADLS. LUNGS COARSE. NO COUGH NOTED. 2L VIA NC. O2 SATS DECREASED TO 88% ON RA. PLACED BACK ON 2L. DIET ADVANCED AFTER SPEECH EVAL. NO DIFFICULTIES SWALLOWING. NEEDS ASSITANCE D/T WEAKNESS. FORD PATENT, DRAINING YELLOW URINE c SEDIMENT TO GRAVITY. RECTAL TUBE REMOVED D/T LOW OUTPUT. PICC TO LUE, DRESSING C/D/I. REDNESS AND EXCORATION TO BILATERAL ARMPITS AND GROIN. BP STABLE. NSR, RATE 90'S. REPORT TO GIRMA SAGASTUME. PT TRANSFERED TO MEDICAL FLOOR c ALL BELONGINGS. ATTEMPTED TO CALL PRIOR TO TRANSFER. CALL UNABLE TO GO THROUGH.
--- NOTE | 2021-07-12 18:21 | NUR ---
PATIENT IS ALERT AND ORIENTED TO SELF, FAMILY AND FOLLOWING DIRECTIONS. HE IS EASILY REDIRECTABLE. 2L O2 VIA NC. [facility] TOLER[facility] DINNER WELL. C/O BACK PAIN, MEDICATED PER EMAR. THIS RN ATTEMPTED TO CALL THE PATIENT'S TODAY, A VOICEMAIL WAS LEFT. PATIENT WORKED WITH PT AND OT TODAY. WILL CONTINUE TO MONITOR
--- NOTE | 2021-07-13 05:18 | NUR ---
MARKETING PRODUCTION COORDINATOR SUMMARY PT A/O X1 TO SELF. FOLLOWS DIRECTIONS AND EASILY REDIRECTABLE. REPOSITIONING PROVIDED THROUGHTOUT THE NIGHT. FORD PATENT AND DRAINING TO GRAVITY. CONTINUES TO BE ON 2L O2 VIA NC SATTING IN THE LOW 90'S. BED ALARM ON, CALL LIGHT WITHIN REACH, WILL CONTINUE TO MONITOR.
[2021-07-13 08:59] LABS: BASOPHILS ABSOLUTE AUTO 0.03 K/mm3 (0.00-0.23); BASOPHILS PERCENT AUTO 0 % (0-2); EOSINOPHILS ABSOLUTE AUTO 0.32 K/mm3 (0.00-0.68); EOSINOPHILS PERCENT AUTO 4 % (0-6); Hematocrit 31.7 % (37.0-53.0); Hemoglobin 10.4 g/dL (13.5-17.5); IMMATURE GRAN ABSOLUTE AUTO 0.06 K/mm3 (0.00-0.10); IMMATURE GRAN PERCENT AUTO 1 % (0-1); LYMPHOCYTES ABSOLUTE AUTO 0.79 K/mm3 (0.84-5.20); LYMPHOCYTES PERCENT AUTO 9 % (21-46); MONOCYTES ABSOLUTE AUTO 1.16 K/mm3 (0.16-1.47); MONOCYTES PERCENT AUTO 13 % (4-13); Mean Corpuscular HGB 29.1 pg (26.0-34.0); Mean Corpuscular HGB Conc 32.8 g/dL (31.5-36.5); Mean Corpuscular Volume 89 fL (80-100); Mean Platelet Volume 9.6 fL (9.1-12.4); NEUTROPHILS ABSOLUTE AUTO 6.78 K/mm3 (1.96-9.15); NEUTROPHILS PERCENT AUTO 74 % (41-73); Platelet Count 509 K/mm3 (150-400); RDW Coefficient Variation 14.3 % (11.7-14.2); Red Blood Cell Count 3.58 M/mm3 (4.30-5.90); White Blood Cell Count 9.14 K/mm3 (4.00-11.30)
[2021-07-13 09:30] LABS: Albumin, Blood 2.4 g/dL (3.4-5.0); Anion Gap 10 mmol/L (6-16); Blood Urea Nitrogen 16 mg/dL (8-24); Bun/Creatinine Ratio 23.2 (12.0-20.0); CO2, Blood 25 mmol/L (21-32); Calcium, Blood 9.2 mg/dL (8.5-10.1); Chloride, Blood 103 mmol/L (98-108); Creatinine, Blood 0.69 mg/dL (0.60-1.20); Glomerular Filtration Rate >60 (60-); Glucose, Blood 117 mg/dL (70-99); Phosphorus, Blood 3.4 mg/dL (2.5-4.9); Potassium, Blood 3.2 mmol/L (3.5-5.5); Sodium, Blood 138 mmol/L (136-145)
[2021-07-13 09:34] LABS: Vancomycin, Trough 19.3 ug/mL (5.0-10.0)
--- NOTE | 2021-07-13 18:20 | NUR ---
PATIENT IS ALERT AND ORIENTED TODAY. HE WAS ABLE TO SPEAK WITH HIS FAMIOLY ON THE PHONE MULTIPLE TIMES THIS SHIFT. ON 2L O2 VIA NC. HE HAD A BM TODAY. FORD IS IN PLACE AND DRAINING. MECH SOFT DIET, HE IS A FEEDER. PATIENT WORKED WITH PT THIS AFTERNOON AND TRANSFERRED TO THE CHAIR. HE SAT IN THE CHAIR FOR A COUPLE HOURS BEFORE HE TRANSFERRED BACK WITH 2PA. WILL CONTINUE TO MONITOR
--- NOTE | 2021-07-14 04:51 | NUR ---
LEVER MILLER SUMMARY PT A/O X4, SLEPT WELL TONIGHT. CONTINUES TO BE ON 2L O2 VIA NC SATTING IN THE MID 90'S. TAKES PILLS WHOLE WITH APPLESAUCE. FORD PATENT AND DRAINING TO GRAVITY. MEDICATED FOR BACK PAIN OVERNIGHT. BED ALARM ON, CALL LIGHT WITHIN REACH, WILL CONTINUE TO MONITOR.
--- NOTE | 2021-07-14 17:08 | NUR ---
SHIFT SUMMARY PT AXO, PLEASANT AND COOPERATIVE WITH CARE. PT STATES HE "FEELS SO MUCH BETTER TODAY." SATING 93-95% ON RA. UP TO CHAIR FOR LUNCH. 2 ASSIST WITH GB AND FWW. IV PATENT AND SALINE LOCKED. LILIANA WARREN'Yesi THIS SHIFT, PT ABLE TO VOID IN URINAL. PT COMPLAINED OF LOWER BACK PAIN, LIDO PATCH IN PLACE PER EMAR. BED IN LOW POSITION, CALL LIGHT WITHIN REACH. NO OTHER CHANGES THIS SHIFT.
[2021-07-15 05:04] LABS: Hematocrit 32.1 % (37.0-53.0); Hemoglobin 10.6 g/dL (13.5-17.5); Mean Corpuscular HGB 29.6 pg (26.0-34.0); Mean Corpuscular Volume 90 fL (80-100); Mean Platelet Volume 9.5 fL (9.1-12.4); Platelet Count 436 K/mm3 (150-400); RDW Coefficient Variation 14.5 % (11.7-14.2); RDW Standard Deviation 47.8 fL (35.1-46.3); Red Blood Cell Count 3.58 M/mm3 (4.30-5.90); White Blood Cell Count 7.83 K/mm3 (4.00-11.30)
[2021-07-15 05:20] LABS: Anion Gap 8 mmol/L (6-16); Blood Urea Nitrogen 17 mg/dL (8-24); Bun/Creatinine Ratio 22.1 (12.0-20.0); CO2, Blood 27 mmol/L (21-32); Calcium, Blood 9.3 mg/dL (8.5-10.1); Chloride, Blood 105 mmol/L (98-108); Creatinine, Blood 0.77 mg/dL (0.60-1.20); Glomerular Filtration Rate >60 (60-); Glucose, Blood 98 mg/dL (70-99); Potassium, Blood 3.3 mmol/L (3.5-5.5); Sodium, Blood 140 mmol/L (136-145)
--- NOTE | 2021-07-15 06:11 | NUR ---
SHIFT SUMMARY AAOX4, ADMITTED FOR COVID 19. ON ROOM AIR, SATS 95%. NO DISTRESS NOTED. NO SIGNIFICANT CHANGES DURING THIS SHIFT. BED IN LOWEST POSITION, CALL LIGHT IN REACH, PT ABLE TO MAKE NEEDS KNOWN.
[2021-07-15 11:24] LABS: SARS-Cov-2 (COVID-19) PCR, MMC POSITIVE (NEGATIVE)
--- NOTE | 2021-07-15 15:15 | NUR ---
PT DISCHARGING TO COVID UNIT AT [facility]. REPORT CALLED TO GALLO. PT HAS BEEN UP FOR EACH MEAL AND AMBULATED USING FWW TO BATHROOM 3 TIMES TODAY. APPEARS WEAK AND SHAKY IN THE ARMS BUT TOLERATING THE ACITIVITY PER HIM. SOB AFTER ACTIVITY BUT RECOVERS QUICKLY. TO CURB VIA W/C.
[2021-07-15] MEDS ORDERED: VENL37.5 PO (18:10)
[2021-07-15] MEDS ORDERED: ACET325 PO (18:11)
[2021-07-15] MEDS ORDERED: NYSTATIN15 GM TOP (18:12)
[2021-07-15] MEDS ORDERED: SENNA LAXATIVE8.6 MG PO (18:12)
== END 2021-07-15 15:28 | DRG 207 ==
LOC: ER 09:24 → ICUE 12:15 → MEDS 12:15 → PCU 06-29 00:55 → ICUE 06-29 04:18 → MEDS 07-12 12:00
PROVIDERS: Emergency Medicine; Family Medicine; Internal Medicine; Internal Medicine Critical Care Medicine; Nurse Practitioner Acute Care; Pharmacist; Student in an Organized Health Care Education/Training Program; ADMIT Hospitalist
PROC: 8E0ZXY6 Isolation (ICD-10-PCS; 2021-06-28)
PROC: 3E0333Z Introduction of Anti-inflammatory into Peripheral Vein, Percutaneous Approach (ICD-10-PCS; 2021-06-28)
PROC: XW033E5 Introduction of Remdesivir Anti-infective into Peripheral Vein, Percutaneous Approach, New Technology Group 5 (ICD-10-PCS; 2021-06-28)
PROC: 5A09357 Assistance with Respiratory Ventilation, Less than 24 Consecutive Hours, Continuous Positive Airway Pressure (ICD-10-PCS; 2021-06-28)
PROC: 0BH18EZ Insertion of Endotracheal Airway into Trachea, Via Natural or Artificial Opening Endoscopic (ICD-10-PCS; principal; 2021-06-29)
PROC: 02H633Z Insertion of Infusion Device into Right Atrium, Percutaneous Approach (ICD-10-PCS; 2021-06-29)
PROC: 5A1955Z Respiratory Ventilation, Greater than 96 Consecutive Hours (ICD-10-PCS; 2021-06-29)
PROC: 3E033XZ Introduction of Vasopressor into Peripheral Vein, Percutaneous Approach (ICD-10-PCS; 2021-07-01)
DX: U07.1 COVID-19 (principal); J96.01 Acute respiratory failure with hypoxia; J12.82 Pneumonia due to coronavirus disease 2019; J15.212 Pneumonia due to Methicillin resistant Staphylococcus aureus; F32.9 Major depressive disorder, single episode, unspecified; F43.10 Post-traumatic stress disorder, unspecified; M54.50 Low back pain, unspecified; G89.29 Other chronic pain; F25.9 Schizoaffective disorder, unspecified; R73.9 Hyperglycemia, unspecified; T38.0X5A Adverse effect of glucocorticoids and synthetic analogues, initial encounter; E87.6 Hypokalemia; I10 Essential (primary) hypertension; G47.33 Obstructive sleep apnea (adult) (pediatric); Z98.890 Other specified postprocedural states; Z88.8 Allergy status to other drugs, medicaments and biological substances; Z79.899 Other long term (current) drug therapy; Z99.89 Dependence on other enabling machines and devices; Z78.1 Physical restraint status
CPT/HCPCS: 0202U; 31500; 36415; 36569; 36600; 51702; 71045; 71260; 80048; 80053; 80069; 80202; 81001; 82803; 82947; 83735; 84100; 84132; 84145; 85007; 85025; 85027; 87070; 87077; 87086; 87147; 87186; 87205; 92526; 92610; 93005; 93010; 94002; 94003; 94660; 94762; 96365; 96366; 96375; 97110; 97112; 97116; 97162; 97167; 97535; 99285-25; A9270; C1751; C9113; J0330; J0360; J0456; J0696; J1100; J1170; J1650; J1815; J2060; J2250; J2405; J2704; J2920; J3010; J3370; J3480; J7030; J7040; J7050; J7060; Q9967; U0004

== ENCOUNTER 2022-02-10 15:26 | Inpatient (IN) | payer OTHER ==
[~2022-02-10] VITALS: Ht 165.1 cm; Wt 111.9 kg
[~2022-02-10 15:26] MED LIST changes: +ACET325 PO; +NYSTATIN15 GM TOP; +SENNA LAXATIVE8.6 MG PO; +VENL37.5 PO
[2022-02-10] MEDS ORDERED: VENL75ER PO (16:22)
[2022-02-10] MEDS ORDERED: HYDROCODONE-AC1 EAC7 PO (16:23)
[2022-02-10] MEDS ORDERED: ARIPIPRAZOLE2 M1 PO (16:24)
[2022-02-10 16:54] LABS: Anion Gap 9 mmol/L (6-16); Blood Urea Nitrogen 43 mg/dL (8-24); Bun/Creatinine Ratio 12.8 (12.0-20.0); CO2, Blood 20 mmol/L (21-32); Calcium, Blood 8.1 mg/dL (8.5-10.1); Chloride, Blood 107 mmol/L (98-108); Creatinine, Blood 3.35 mg/dL (0.60-1.20); Glomerular Filtration Rate 19 (60-); Glucose, Blood 80 mg/dL (70-99); Magnesium, Blood 2.1 mg/dL (1.6-2.4); Potassium, Blood 5.3 mmol/L (3.5-5.5); Sodium, Blood 136 mmol/L (136-145)
[2022-02-10 16:57] LABS: BASOPHILS ABSOLUTE AUTO 0.03 K/mm3 (0.00-0.23); BASOPHILS PERCENT AUTO 0 % (0-2); EOSINOPHILS ABSOLUTE AUTO 0.29 K/mm3 (0.00-0.68); EOSINOPHILS PERCENT AUTO 3 % (0-6); Hematocrit 32.5 % (37.0-53.0); Hemoglobin 10.2 g/dL (13.5-17.5); IMMATURE GRAN ABSOLUTE AUTO 0.05 K/mm3 (0.00-0.10); IMMATURE GRAN PERCENT AUTO 1 % (0-1); LYMPHOCYTES ABSOLUTE AUTO 0.76 K/mm3 (0.84-5.20); LYMPHOCYTES PERCENT AUTO 8 % (21-46); MONOCYTES ABSOLUTE AUTO 1.15 K/mm3 (0.16-1.47); MONOCYTES PERCENT AUTO 12 % (4-13); Mean Corpuscular HGB 28.6 pg (26.0-34.0); Mean Corpuscular HGB Conc 31.4 g/dL (31.5-36.5); Mean Corpuscular Volume 91 fL (80-100); Mean Platelet Volume 9.2 fL (9.1-12.4); NEUTROPHILS ABSOLUTE AUTO 7.02 K/mm3 (1.96-9.15); NEUTROPHILS PERCENT AUTO 76 % (41-73); Platelet Count 319 K/mm3 (150-400); RDW Coefficient Variation 14.2 % (11.7-14.2); RDW Standard Deviation 48.1 fL (35.1-46.3); Red Blood Cell Count 3.57 M/mm3 (4.30-5.90)
[2022-02-10 17:01] LABS: Ethanol (Alcohol), Blood, Med <3 mg/dL
[2022-02-10 17:15] LABS: Influenza A, PCR NEGATIVE (NEGATIVE); Influenza B, PCR NEGATIVE (NEGATIVE); Resp Syncytial Virus, PCR NEGATIVE (NEGATIVE); SARS-Cov-2 (COVID-19) PCR, MMC NEGATIVE (NEGATIVE)
[2022-02-10 17:33] LABS: Base Excess Venous -9.6 mmol/L; Bicarbonate Venous 16.4 mmol/L (24.0-30.0); PCO2 Venous 55.6 mmHg (38-42); PO2 Venous 52.1 mmHg (38-42)
[2022-02-10 17:34] LABS: pH Blood Venous 7.15 (7.34-7.37)
[2022-02-10 19:35] LABS: Source, Urine Clean Catch
[2022-02-10 19:44] LABS: Bilirubin, Urine Neg (Neg); Blood, Urine 2+ (Neg); Color, Urine Yellow (P-Yellow); Glucose Qualitative, Urine Neg (Neg); Ketones, Urine Neg (Neg); Leukocyte Esterase, Urine Neg (Neg); Nitrite, Urine Neg (Neg); Protein, Urine 2+ (Neg); Urobilinogen, Urine NORM (Normal)
[2022-02-10 20:13] LABS: Appearance, Urine Hazy (Clear)
[2022-02-10 20:14] LABS: Amorphous Light (0-Heavy); Bacteria Mod /hpf; Calcium Oxalate Crystals Rare /hpf; Mucus Light (0-Heavy); Red Blood Cells, Urine 0-2 /hpf (0-2); Squamous Epithelial Cells Rare /hpf (Few); White Blood Cells, Urine 0-2 /hpf (0-5)
[2022-02-11 00:08] LABS: Base Excess Venous -5.6 mmol/L; Bicarbonate Venous 19.4 mmol/L (24.0-30.0); PCO2 Venous 55.5 mmHg (38-42); PO2 Venous 55.5 mmHg (38-42)
[2022-02-11 00:09] LABS: pH Blood Venous 7.21 (7.34-7.37)
[2022-02-11 04:26] LABS: Hematocrit 37.1 % (37.0-53.0); Hemoglobin 11.8 g/dL (13.5-17.5); Mean Corpuscular HGB 28.4 pg (26.0-34.0); Mean Corpuscular HGB Conc 31.8 g/dL (31.5-36.5); Mean Corpuscular Volume 89 fL (80-100); Mean Platelet Volume 8.8 fL (9.1-12.4); Platelet Count 341 K/mm3 (150-400); RDW Coefficient Variation 14.2 % (11.7-14.2); Red Blood Cell Count 4.16 M/mm3 (4.30-5.90); White Blood Cell Count 9.27 K/mm3 (4.00-11.30)
[2022-02-11 05:02] LABS: Bun/Creatinine Ratio 20.6 (12.0-20.0); Calcium, Blood 8.5 mg/dL (8.5-10.1); Creatinine, Blood 1.6 mg/dL (0.60-1.20); Thyroid Stimulating Hormone 0.318 uIU/mL (0.360-4.800); Thyroxine (T4) 6.4 ug/dL (4.5-12.1)
--- NOTE | 2022-02-11 16:32 | NUR ---
Shift Summary VSS. Afebrile. C/o L knee pain- Tramadol x1 with adequate control of pain per pt. FC maintained, AUO. BM x1. Tolerating current diet. Frequent rounds to ensure pt safety. Pt in no apparent distress at this time. Will continue to monitor until transfer of care to oncoming RN.
--- NOTE | 2022-02-11 22:07 | NUR ---
CARE ASSUMPTION: RECEIVED REPORT FROM CLYDE, RN. PATIENT IN BED WATCHING TV. STATES HIS KNEE IS UNCOMFORTABLE AND VERBALIZED UNDERSTANDING NEXT ULTRAM ISN'T AVAILABLE UNTIL 2300. READJUSTED IN BED FOR BETTER COMFORT. PATIENT'S FACE IS FLUSHED BUT STATED NORMAL FOR HIM AND THAT HE WAS COMFORTABLE TEMPERATURE-HOOD. TEMP WNL. PATIENT WAS IN DROPLET PRECAUTIONS AT BEGINNING OF SHIFT AND HAVE SINCE LIFTED.
--- NOTE | 2022-02-12 05:15 | NUR ---
SHIFT SUMMARY: PATIENT AFEBRILE, A&O X4, BP SYSTOLIC 150S, HR 90S, AND 02 >95% RA. FORD DRAINING TO GRAVITY. PATIENT'S CHIEF COMPLAINT IS LEFT KNEE PAIN - MEDICATED PER EMAR. NO SYNCOPAL EPISODES OR COMPLAINT OF CHEST PAIN, SOB, OR N/V/D. PATIENT STATES HE FINDS IT DIFFICULT TO SLEEP IN THE HOSPITAL AND DID NOT TOLERATE CPAP WELL. WILL CONTINUE TO MONITOR AND REPORT TO ONCOMING RN.
[2022-02-12 09:21] LABS: Anion Gap 8 mmol/L (6-16); Blood Urea Nitrogen 19 mg/dL (8-24); Bun/Creatinine Ratio 23.7 (12.0-20.0); CO2, Blood 23 mmol/L (21-32); Calcium, Blood 8.9 mg/dL (8.5-10.1); Chloride, Blood 106 mmol/L (98-108); Glomerular Filtration Rate >60 (60-); Glucose, Blood 197 mg/dL (70-99); Potassium, Blood 3.9 mmol/L (3.5-5.5); Sodium, Blood 137 mmol/L (136-145)
--- NOTE | 2022-02-12 12:33 | NUR ---
BLADDER TRAINING WILL CONITNUE UNTIL 190 CATHY THEN WILL BE D/C IF PT RESPONDS WELL TO BLADDER TRAINING. PT SO FAR HAS RESPONDED WELL TO BLADDER TRAINING, CALLS APPOPRIATELY FOR FORD TO BE UNCLAMPED
--- NOTE | 2022-02-12 13:05 | NUR ---
REPORT TO MEDICAL FLOOR NURSE, PT REMAINS WITH BLADDER TRAINING IN PROGRESS
--- NOTE | 2022-02-12 17:52 | NUR ---
PT TRANSFERRED FROM PCU 9 TO ROOM [id number], WHEELCHAIR TO BED, PT INDEPENDANT, STEADY ON FEET. ORIENTED TO ROOM SET UP AND CALL LIGHT AND SAFETY TO NOT GET UP WITHOUT SBA.
--- NOTE | 2022-02-12 17:54 | NUR ---
SUMMARY- PT A/O X4. VERBAL, PLEASANT. INDEPENDANT IN ROOM, STEADY ON FEET. HAS HAD 5 BM'S TODAY. EXPLOSIVE AND COME FAST. PT STATES THIS IS THE NORM FOR HIM. STATES HE HAS BOWEL URGE INCONT AT TIMES. PT IS TOLERATING FOOD AND FLUIDS, FORD CATH BLADDER TRAINING AND WILL DC AT 1900. DENIES ANY SYNCOPAL EPISODES. STATES TRAMADOL EFFECTIVE FOR L KNEE AND CHRONIC BACK PAIN. LIKELY DISCHARGE HOME 02/13
[2022-02-13 05:56] LABS: Anion Gap 7 mmol/L (6-16); Blood Urea Nitrogen 24 mg/dL (8-24); Bun/Creatinine Ratio 22.2 (12.0-20.0); CO2, Blood 25 mmol/L (21-32); Chloride, Blood 106 mmol/L (98-108); Creatinine, Blood 1.08 mg/dL (0.60-1.20); Glomerular Filtration Rate >60 (60-); Glucose, Blood 115 mg/dL (70-99); Potassium, Blood 3.8 mmol/L (3.5-5.5); Sodium, Blood 138 mmol/L (136-145)
--- NOTE | 2022-02-13 06:03 | NUR ---
SHIFT SUMMARY PATIENT ALERT AND ORIENTED. MEDICATED PER EMAR FOR PAIN. HAD NO COMPLAINTS OF SHORTNESS OF BREATH. NO ACUTE ISSUES NOTED OVERNIGHT. CALL LIGHT WITHIN REACH. REPORT GIVEN TO ONCOMING RN.
[2022-02-13] MEDS ORDERED: AMLO5 PO (11:30)
[2022-02-13] MEDS ORDERED: MUPIROCIN1 G1 TOP (11:53)
--- NOTE | 2022-02-13 18:36 | NUR ---
PT DISCHARGED 1205 WITH DC INSTRUCTIONS, WHEELCHAIR OUT TO PRIVATE CAR HOME.
== END 2022-02-13 12:08 | disposition home or self-care (01) | DRG 683 ==
LOC: ER 15:26 → PCU 20:18 → MEDS 02-12 13:40
PROVIDERS: Internal Medicine; Student in an Organized Health Care Education/Training Program; ADMIT Internal Medicine
DX: N17.9 Acute kidney failure, unspecified (principal); E87.2 Acidosis; G89.29 Other chronic pain; M54.9 Dorsalgia, unspecified; F32.A Depression, unspecified; I10 Essential (primary) hypertension; I95.9 Hypotension, unspecified; G47.33 Obstructive sleep apnea (adult) (pediatric); E86.1 Hypovolemia; E86.0 Dehydration; N13.9 Obstructive and reflux uropathy, unspecified; T50.905A Adverse effect of unspecified drugs, medicaments and biological substances, initial encounter; Z20.822 Contact with and (suspected) exposure to COVID-19; R33.9 Retention of urine, unspecified; F25.9 Schizoaffective disorder, unspecified; R35.0 Frequency of micturition; R30.0 Dysuria; F43.10 Post-traumatic stress disorder, unspecified; Z86.14 Personal history of Methicillin resistant Staphylococcus aureus infection; Z86.16 Personal history of COVID-19; Z86.718 Personal history of other venous thrombosis and embolism; Z79.01 Long term (current) use of anticoagulants; Z98.890 Other specified postprocedural states; Z71.89 Other specified counseling; Z88.8 Allergy status to other drugs, medicaments and biological substances; Z79.899 Other long term (current) drug therapy
CPT/HCPCS: 0241U; 36415; 51702; 51798; 71045; 71260; 73560-LT; 76770; 80048; 81001; 82803; 82947; 83605; 83735; 84436; 84443; 84484; 85025; 85027; 87081; 87086; 93005; 93010; 93306; 93971; 94660; 94762; 96374; 99285-25; A9270; G0480; J1100; J1644; J7030; J7060; Q9967

== ENCOUNTER → 2022-03-31 | Outpatient (CLI) | payer OTHER ==
[~2022-03-31] MED LIST changes: +AMLO5 PO; +ARIPIPRAZOLE2 M1 PO; +HYDROCODONE-AC1 EAC7 PO; +MUPIROCIN1 G1 TOP; +VENL75ER PO
[2022-03-31 10:28] LABS: Creatinine, Urine Random 70.5 mg/dL (27.00-270.00); Protein, Urine Random 6.1 mg/dL (0.0-11.9); Protein/Creat Ratio, Ur Random 0.1
[2022-03-31 21:31] LABS: Microalbumin, Urine Quant. <5.000 mg/L (0.000-20.000)
== END | disposition home or self-care (01) ==
LOC: LAB 07:00 → LAB SHORT 07:00 → LAB FUT 03-26 16:55
PROVIDERS: Internal Medicine Nephrology
DX: N18.2 Chronic kidney disease, stage 2 (mild) (principal); D63.1 Anemia in chronic kidney disease; N25.81 Secondary hyperparathyroidism of renal origin; E55.9 Vitamin D deficiency, unspecified; E78.00 Pure hypercholesterolemia, unspecified; N40.1 Benign prostatic hyperplasia with lower urinary tract symptoms; R76.9 Abnormal immunological finding in serum, unspecified; R94.5 Abnormal results of liver function studies; R94.6 Abnormal results of thyroid function studies
CPT/HCPCS: 81050; 82043; 82570; 84156

== ENCOUNTER 2023-09-24 09:15 | Day surgery (SDC) | payer OTHER ==
[~2023-09-24] VITALS: Ht 165.1 cm; Wt 114.1 kg
[~2023-09-24 09:15] MED LIST changes: +ABILIFY MYCITE2 M2 PO; +COREG12.5 MG PO; +FLUO10 PO; +FURO20 PO; +LOSA50 PO; +METF500 PO
[2023-09-24] MEDS ORDERED: OMEP20ER PO (11:05)
[2023-09-24 11:14] VITALS: BP 149/78
--- NOTE | 2023-09-24 11:25 | NUR ---
09/24/23 1125 Kadi Pierre History, Chart, Medications and Allergies reviewed before start of procedure.MONITOR INTACT WITH CONTINUOUS PULSE OXIMETRY, CONTINUOUS END TITAL CO2, AND INTERMITTENT BLOOD PRESSURE.3-LEAD EKG REVIEWED WITH PHYSICIAN PRIOR TO START OF PROCEDURE.O2 VIA N/C INTACT THROUGHOUT SEDATION/PROCEDURE.Bite Block Placed. PROVIDING ANESTHESIA.
[2023-09-24 12:10] VITALS: BP 131/84
--- NOTE | 2023-09-24 12:13 | NUR ---
REPORT RECEIVED FROM YVONNE GOLDMAN RN. VSS. PT DENIES PAIN, NAUSEA OR OTHER DISCOMFORTS. PT ABLE TO REPOSITION SELF IN BED. PT TOLERATING PO FLUIDS.
[2023-09-24 12:20] VITALS: BP 137/93
[2023-09-24 12:30] VITALS: BP 157/97
--- NOTE | 2023-09-24 12:49 | NUR ---
Patient up to Ambulate independently. Gait steady. VSS AND CONSISTENT WITH PT BASELINE. PT DENIES COMPLAINTS AND VERBALIZES READINESS TO GO HOME. Discharge instructions reviewed with patient. Patient verbalizes understanding. Copy given to patient to take home. Patient States Post-Procedure ride home has been arranged. Discharged via wheelchair to private car for ride home. PT BELONGINGS RETURNED TO PT.
== END 2023-09-24 12:51 | disposition home or self-care (01) ==
LOC: ORSCMMR 09:15 → ORD 11:00 → ORSCMMR 11:00
PROVIDERS: Internal Medicine Gastroenterology
PROC: 0DB78ZX Excision of Stomach, Pylorus, Via Natural or Artificial Opening Endoscopic, Diagnostic (ICD-10-PCS; principal; 2023-09-24 11:00)
PROC: 0DBN8ZX Excision of Sigmoid Colon, Via Natural or Artificial Opening Endoscopic, Diagnostic (ICD-10-PCS; principal; 2023-09-24 11:00)
PROC: 0DBP8ZX Excision of Rectum, Via Natural or Artificial Opening Endoscopic, Diagnostic (ICD-10-PCS; principal; 2023-09-24 11:00)
DX: Z12.11 Encounter for screening for malignant neoplasm of colon (principal); Z86.010 Personal history of colon polyps; K62.1 Rectal polyp; K25.9 Gastric ulcer, unspecified as acute or chronic, without hemorrhage or perforation; I10 Essential (primary) hypertension; E11.9 Type 2 diabetes mellitus without complications; Z86.16 Personal history of COVID-19; K21.9 Gastro-esophageal reflux disease without esophagitis; E66.9 Obesity, unspecified; Z68.41 Body mass index [BMI] 40.0-44.9, adult; E66.01 Morbid (severe) obesity due to excess calories; F25.9 Schizoaffective disorder, unspecified; Z79.899 Other long term (current) drug therapy; Z87.891 Personal history of nicotine dependence
CPT/HCPCS: 82947; 88305; 88342; C9113; J2001; J2704; J7120

== ENCOUNTER → 2023-10-30 | Outpatient (CLI) | payer OTHER ==
[~2023-10-30] MED LIST changes: +OMEP20ER PO
[2023-10-30 12:57] LABS: Creatinine Urine 98.8 mg/dL (27.00-270.00); Protein, Urine Quantitative 34.2 mg/dL (0.0-11.9)
== END ==
LOC: LAB 10:34 → LAB SHORT 10:34
PROVIDERS: Internal Medicine Nephrology
DX: N18.30 Chronic kidney disease, stage 3 unspecified (principal); D63.1 Anemia in chronic kidney disease; N25.81 Secondary hyperparathyroidism of renal origin; E55.9 Vitamin D deficiency, unspecified; E78.00 Pure hypercholesterolemia, unspecified; R76.9 Abnormal immunological finding in serum, unspecified; R94.6 Abnormal results of thyroid function studies
CPT/HCPCS: 81050; 82043; 82570; 84156

== ENCOUNTER 2024-06-01 05:57 | Day surgery (SDC) | payer OTHER ==
[2024-06-01] MEDS ORDERED: Lidocaine HCl 4% Cream 5 GM ONE (11:24)
== END 2024-06-01 23:10 | disposition home or self-care (01) ==
LOC: WOUND 05:57
DX: L97.912 Non-pressure chronic ulcer of unspecified part of right lower leg with fat layer exposed (principal); I87.2 Venous insufficiency (chronic) (peripheral); L97.919 Non-pressure chronic ulcer of unspecified part of right lower leg with unspecified severity; L97.929 Non-pressure chronic ulcer of unspecified part of left lower leg with unspecified severity; I10 Essential (primary) hypertension
CPT/HCPCS: A6213; A9270; G0463

== ENCOUNTER 2024-06-07 08:18 | Day surgery (SDC) | payer OTHER | END 2024-06-07 22:40 | disposition home or self-care (01) | LOC: WOUND 08:18 | DX: L97.819 Non-pressure chronic ulcer of other part of right lower leg with unspecified severity (principal); I73.9 Peripheral vascular disease, unspecified; I87.2 Venous insufficiency (chronic) (peripheral); I27.0 Primary pulmonary hypertension | CPT/HCPCS: A6213; G0463 ==

== ENCOUNTER 2024-06-15 03:59 | Day surgery (SDC) | payer OTHER ==
[2024-06-15] MEDS ORDERED: Lidocaine HCl 4% Cream 5 GM ONE (08:35)
== END 2024-06-15 22:44 | disposition home or self-care (01) ==
LOC: WOUND 03:59
DX: L97.812 Non-pressure chronic ulcer of other part of right lower leg with fat layer exposed (principal); L97.822 Non-pressure chronic ulcer of other part of left lower leg with fat layer exposed; I73.9 Peripheral vascular disease, unspecified; I87.2 Venous insufficiency (chronic) (peripheral); I27.0 Primary pulmonary hypertension
CPT/HCPCS: A6213; A9270

== ENCOUNTER 2024-06-17 01:46 | Day surgery (SDC) | payer OTHER ==
[2024-06-17] MEDS ORDERED: Lidocaine HCl 4% Cream 5 GM ONE (08:41)
== END 2024-06-17 23:30 | disposition home or self-care (01) ==
LOC: WOUND 01:46
DX: L97.812 Non-pressure chronic ulcer of other part of right lower leg with fat layer exposed (principal); L97.822 Non-pressure chronic ulcer of other part of left lower leg with fat layer exposed; I73.9 Peripheral vascular disease, unspecified; I87.2 Venous insufficiency (chronic) (peripheral); I27.0 Primary pulmonary hypertension
CPT/HCPCS: A6213; A9270

== ENCOUNTER 2024-06-29 01:38 | Day surgery (SDC) | payer OTHER | END 2024-06-29 22:45 | disposition home or self-care (01) | LOC: WOUND 01:38 | DX: I70.238 Atherosclerosis of native arteries of right leg with ulceration of other part of lower leg (principal); L97.819 Non-pressure chronic ulcer of other part of right lower leg with unspecified severity; L97.809 Non-pressure chronic ulcer of other part of unspecified lower leg with unspecified severity; I87.2 Venous insufficiency (chronic) (peripheral); I27.0 Primary pulmonary hypertension | CPT/HCPCS: A6213; G0463 ==

== ENCOUNTER 2024-07-06 03:25 | Emergency (ER) | payer OTHER ==
[~2024-07-06] VITALS: Ht 165.1 cm; Wt 118.4 kg
[2024-07-06] MEDS ORDERED: Acetaminophen 500 MG Tab PO ONE (06:00)
[2024-07-06] MEDS ORDERED: Gabapentin 300 MG Cap PO ONE (06:00)
[2024-07-06] MEDS ORDERED: BENADRYL25 MG PO (06:20)
[2024-07-06] MEDS ORDERED: DiphenhydrAMINE HCL 25 MG Cap PO ONE (06:20)
[2024-07-06 06:26] VITALS: BP 133/70
== END 2024-07-06 06:27 | disposition home or self-care (01) ==
LOC: ER 03:25
DX: L97.919 Non-pressure chronic ulcer of unspecified part of right lower leg with unspecified severity (principal); F11.90 Opioid use, unspecified, uncomplicated; F43.10 Post-traumatic stress disorder, unspecified; G47.33 Obstructive sleep apnea (adult) (pediatric); K21.9 Gastro-esophageal reflux disease without esophagitis; I10 Essential (primary) hypertension; Z87.891 Personal history of nicotine dependence; Z79.84 Long term (current) use of oral hypoglycemic drugs; Z79.899 Other long term (current) drug therapy; Z88.8 Allergy status to other drugs, medicaments and biological substances
CPT/HCPCS: 99282; A9270

== ENCOUNTER 2024-07-07 02:56 | Day surgery (SDC) | payer OTHER ==
[~2024-07-07 02:56] MED LIST changes: +BENADRYL25 MG PO
[2024-07-07] MEDS ORDERED: Lidocaine HCl 4% Cream 5 GM ONE (11:03)
== END 2024-07-07 23:00 | disposition home or self-care (01) ==
LOC: WOUND 02:56
DX: L97.815 Non-pressure chronic ulcer of other part of right lower leg with muscle involvement without evidence of necrosis (principal); L97.825 Non-pressure chronic ulcer of other part of left lower leg with muscle involvement without evidence of necrosis; I73.9 Peripheral vascular disease, unspecified; I87.2 Venous insufficiency (chronic) (peripheral); I27.0 Primary pulmonary hypertension
CPT/HCPCS: A6213; A9270

== ENCOUNTER 2024-07-14 02:14 | Day surgery (SDC) | payer OTHER ==
[2024-07-14] MEDS ORDERED: Lidocaine HCl 4% Cream 5 GM ONE (09:01)
== END 2024-07-14 23:00 | disposition home or self-care (01) ==
LOC: WOUND 02:14
DX: L97.812 Non-pressure chronic ulcer of other part of right lower leg with fat layer exposed (principal); L97.822 Non-pressure chronic ulcer of other part of left lower leg with fat layer exposed; I73.9 Peripheral vascular disease, unspecified; I87.2 Venous insufficiency (chronic) (peripheral); I27.0 Primary pulmonary hypertension
CPT/HCPCS: A6213; A9270

== ENCOUNTER 2024-07-19 19:28 | Emergency (ER) | payer OTHER ==
[~2024-07-19] VITALS: Ht 165.1 cm; Wt 118.4 kg
[2024-07-19 20:40] VITALS: BP 176/108
[2024-07-19] MEDS ORDERED: OxyCODONE HCL 5 MG TAB PO ONE (21:20)
[2024-07-19] MEDS ORDERED: RX Prepack 6 Tabs Oxycodone 5mg UD ONE (21:20)
[2024-07-19] MEDS ORDERED: Ketorolac Tromethamine 15mg Vial IM ONE (21:20)
[2024-07-19] MEDS ORDERED: Trimethoprim/Sulfamethoxazole DS Tab PO ONE (21:20)
[2024-07-19] MEDS ORDERED: CEPH500 PO (21:22)
[2024-07-19] MEDS ORDERED: DOXY100 PO (21:24)
[2024-07-19] MEDS ORDERED: Cephalexin Monohydrate 500 MG Cap PO ONE (21:25)
[2024-07-19] MEDS ORDERED: Doxycycline Hyclate 100 MG TAB PO ONE (21:25)
== END 2024-07-19 21:36 | disposition home or self-care (01) ==
LOC: ER 19:28
DX: Z48.00 Encounter for change or removal of nonsurgical wound dressing (principal); G47.33 Obstructive sleep apnea (adult) (pediatric); K21.9 Gastro-esophageal reflux disease without esophagitis; I10 Essential (primary) hypertension; F25.9 Schizoaffective disorder, unspecified; Z88.8 Allergy status to other drugs, medicaments and biological substances; Z79.899 Other long term (current) drug therapy; Z79.84 Long term (current) use of oral hypoglycemic drugs; Z87.891 Personal history of nicotine dependence
CPT/HCPCS: 96372; 99282-25; A9270; J1885

== ENCOUNTER 2024-07-21 02:00 | Day surgery (SDC) | payer OTHER ==
[~2024-07-21 02:00] MED LIST changes: +CEPH500 PO; +DOXY100 PO
[2024-07-21] MEDS ORDERED: Lidocaine HCl 4% Cream 5 GM ONE (07:35)
== END 2024-07-22 02:44 | disposition home or self-care (01) ==
LOC: WOUND 02:00
DX: L97.812 Non-pressure chronic ulcer of other part of right lower leg with fat layer exposed (principal); I73.9 Peripheral vascular disease, unspecified; I87.2 Venous insufficiency (chronic) (peripheral); I27.0 Primary pulmonary hypertension
CPT/HCPCS: A6213; A9270

== ENCOUNTER 2024-07-27 02:00 | Day surgery (SDC) | payer OTHER ==
[2024-07-27] MEDS ORDERED: Lidocaine HCl 4% Cream 5 GM ONE (07:43)
== END 2024-07-27 23:34 | disposition home or self-care (01) ==
LOC: WOUND 02:00
DX: L97.812 Non-pressure chronic ulcer of other part of right lower leg with fat layer exposed (principal); L97.822 Non-pressure chronic ulcer of other part of left lower leg with fat layer exposed; I73.9 Peripheral vascular disease, unspecified; I87.2 Venous insufficiency (chronic) (peripheral); I27.0 Primary pulmonary hypertension; I10 Essential (primary) hypertension
CPT/HCPCS: A9270

== ENCOUNTER 2024-07-27 16:01 | Emergency (ER) | payer OTHER ==
[~2024-07-27] VITALS: Ht 165.1 cm; Wt 118.4 kg
[2024-07-27 16:08] VITALS: BP 154/85
[2024-07-27] MEDS ORDERED: Ketorolac Tromethamine 30mg Vial IM ONE (17:00)
== END 2024-07-27 17:07 | disposition home or self-care (01) ==
LOC: ER 16:01
DX: G89.18 Other acute postprocedural pain (principal); M79.605 Pain in left leg; M79.604 Pain in right leg; Z79.84 Long term (current) use of oral hypoglycemic drugs; Z79.899 Other long term (current) drug therapy; Z88.8 Allergy status to other drugs, medicaments and biological substances
CPT/HCPCS: 96372; 99283-25; J1885

== ENCOUNTER 2024-07-29 00:30 | Day surgery (SDC) | payer OTHER ==
[2024-07-29] MEDS ORDERED: Lidocaine HCl 4% Cream 5 GM ONE (09:29)
== END 2024-07-29 22:57 | disposition home or self-care (01) ==
LOC: WOUND 00:30
DX: L97.812 Non-pressure chronic ulcer of other part of right lower leg with fat layer exposed (principal); L97.822 Non-pressure chronic ulcer of other part of left lower leg with fat layer exposed; I87.2 Venous insufficiency (chronic) (peripheral); I12.0 Hypertensive chronic kidney disease with stage 5 chronic kidney disease or end stage renal disease; N18.6 End stage renal disease; I73.9 Peripheral vascular disease, unspecified
CPT/HCPCS: A9270

== ENCOUNTER 2024-08-03 01:03 | Day surgery (SDC) | payer OTHER ==
[2024-08-03] MEDS ORDERED: Lidocaine HCl 4% Cream 5 GM ONE (07:58)
== END 2024-08-03 23:12 | disposition home or self-care (01) ==
LOC: WOUND 01:03
DX: L97.812 Non-pressure chronic ulcer of other part of right lower leg with fat layer exposed (principal); L97.822 Non-pressure chronic ulcer of other part of left lower leg with fat layer exposed; I73.9 Peripheral vascular disease, unspecified; I87.2 Venous insufficiency (chronic) (peripheral); I27.0 Primary pulmonary hypertension
CPT/HCPCS: A9270

== ENCOUNTER 2024-08-08 08:26 | Day surgery (SDC) | payer OTHER ==
[2024-08-08] MEDS ORDERED: Lidocaine HCl 4% Cream 5 GM ONE (08:50)
== END 2024-08-08 23:10 | disposition home or self-care (01) ==
LOC: WOUND 08:26
DX: L97.812 Non-pressure chronic ulcer of other part of right lower leg with fat layer exposed (principal); L97.822 Non-pressure chronic ulcer of other part of left lower leg with fat layer exposed; I87.2 Venous insufficiency (chronic) (peripheral); I27.0 Primary pulmonary hypertension; I73.9 Peripheral vascular disease, unspecified; I12.0 Hypertensive chronic kidney disease with stage 5 chronic kidney disease or end stage renal disease; N18.6 End stage renal disease
CPT/HCPCS: A9270

== ENCOUNTER 2024-08-12 01:54 | Day surgery (SDC) | payer OTHER ==
[2024-08-12] MEDS ORDERED: Lidocaine HCl 4% Cream 5 GM ONE ×2 (07:48→07:49)
== END 2024-08-12 23:49 | disposition home or self-care (01) ==
LOC: WOUND 01:54
DX: I87.313 Chronic venous hypertension (idiopathic) with ulcer of bilateral lower extremity (principal); L97.812 Non-pressure chronic ulcer of other part of right lower leg with fat layer exposed; L97.822 Non-pressure chronic ulcer of other part of left lower leg with fat layer exposed; L97.802 Non-pressure chronic ulcer of other part of unspecified lower leg with fat layer exposed; I87.2 Venous insufficiency (chronic) (peripheral); I73.9 Peripheral vascular disease, unspecified; I27.0 Primary pulmonary hypertension
CPT/HCPCS: A9270

== ENCOUNTER 2024-08-13 08:32 | Emergency (ER) | payer OTHER ==
[~2024-08-13] VITALS: Ht 182.9 cm; Wt 108.9 kg
[2024-08-13 09:24] VITALS: BP 132/78
[2024-08-13] MEDS ORDERED: Ketorolac Tromethamine 15mg Vial IM ONE (09:25)
== END 2024-08-13 11:34 | disposition home or self-care (01) ==
LOC: ER 08:32
DX: L97.919 Non-pressure chronic ulcer of unspecified part of right lower leg with unspecified severity (principal); Z88.8 Allergy status to other drugs, medicaments and biological substances; Z79.899 Other long term (current) drug therapy; Z79.84 Long term (current) use of oral hypoglycemic drugs; I10 Essential (primary) hypertension; G47.33 Obstructive sleep apnea (adult) (pediatric); K21.9 Gastro-esophageal reflux disease without esophagitis; Z87.891 Personal history of nicotine dependence
CPT/HCPCS: 96372; 99282-25; J1885

== ENCOUNTER 2024-08-16 03:29 | Day surgery (SDC) | payer OTHER ==
[2024-08-16] MEDS ORDERED: Lidocaine HCl 4% Cream 5 GM ONE (07:41)
== END 2024-08-16 23:00 | disposition home or self-care (01) ==
LOC: WOUND 03:29
DX: I87.313 Chronic venous hypertension (idiopathic) with ulcer of bilateral lower extremity (principal); L97.812 Non-pressure chronic ulcer of other part of right lower leg with fat layer exposed; L97.822 Non-pressure chronic ulcer of other part of left lower leg with fat layer exposed; I73.9 Peripheral vascular disease, unspecified; I12.0 Hypertensive chronic kidney disease with stage 5 chronic kidney disease or end stage renal disease; N18.6 End stage renal disease
CPT/HCPCS: A9270

== ENCOUNTER 2024-08-23 01:45 | Day surgery (SDC) | payer OTHER ==
[2024-08-23] MEDS ORDERED: Lidocaine HCl 4% Cream 5 GM ONE (08:05)
== END 2024-08-23 23:00 | disposition home or self-care (01) ==
LOC: WOUND 01:45
DX: I87.313 Chronic venous hypertension (idiopathic) with ulcer of bilateral lower extremity (principal); L97.812 Non-pressure chronic ulcer of other part of right lower leg with fat layer exposed; L97.822 Non-pressure chronic ulcer of other part of left lower leg with fat layer exposed; I87.2 Venous insufficiency (chronic) (peripheral); I73.9 Peripheral vascular disease, unspecified; I27.0 Primary pulmonary hypertension
CPT/HCPCS: A9270

== ENCOUNTER 2024-08-23 18:06 | Emergency (ER) | payer OTHER ==
[~2024-08-23] VITALS: Ht 165.1 cm; Wt 118.4 kg
[2024-08-23 18:29] VITALS: BP 176/113
[2024-08-23] MEDS ORDERED: Ketorolac Tromethamine 15mg Vial IM ONE (18:35)
== END 2024-08-23 19:07 | disposition home or self-care (01) ==
LOC: ER 18:06
DX: M79.661 Pain in right lower leg (principal); G89.29 Other chronic pain; I10 Essential (primary) hypertension; K21.9 Gastro-esophageal reflux disease without esophagitis; Z88.8 Allergy status to other drugs, medicaments and biological substances; Z79.899 Other long term (current) drug therapy; Z79.84 Long term (current) use of oral hypoglycemic drugs; Z87.891 Personal history of nicotine dependence
CPT/HCPCS: 96372; 99283-25; J1885

== ENCOUNTER 2024-08-30 01:52 | Day surgery (SDC) | payer OTHER ==
[2024-08-30] MEDS ORDERED: Lidocaine HCl 4% Cream 5 GM ONE (07:49)
== END 2024-08-30 23:00 | disposition home or self-care (01) ==
LOC: WOUND 01:52
DX: I87.313 Chronic venous hypertension (idiopathic) with ulcer of bilateral lower extremity (principal); L97.812 Non-pressure chronic ulcer of other part of right lower leg with fat layer exposed; L97.822 Non-pressure chronic ulcer of other part of left lower leg with fat layer exposed; I87.2 Venous insufficiency (chronic) (peripheral); I73.9 Peripheral vascular disease, unspecified; I10 Essential (primary) hypertension
CPT/HCPCS: A9270

== ENCOUNTER 2024-09-06 00:56 | Day surgery (SDC) | payer OTHER ==
[2024-09-06] MEDS ORDERED: Lidocaine HCl 4% Cream 5 GM ONE (07:38)
== END 2024-09-06 23:18 | disposition home or self-care (01) ==
LOC: WOUND 00:56
DX: I87.313 Chronic venous hypertension (idiopathic) with ulcer of bilateral lower extremity (principal); L97.812 Non-pressure chronic ulcer of other part of right lower leg with fat layer exposed; L97.822 Non-pressure chronic ulcer of other part of left lower leg with fat layer exposed; I87.2 Venous insufficiency (chronic) (peripheral); I73.9 Peripheral vascular disease, unspecified; I27.0 Primary pulmonary hypertension
CPT/HCPCS: A9270

== ENCOUNTER 2024-09-08 23:50 | Emergency (ER) | payer OTHER ==
[~2024-09-08] VITALS: Ht 165.1 cm; Wt 118.4 kg
[2024-09-09] MEDS ORDERED: HYDROmorphone HCl/Pf 1MG SYR IV ONE (01:40)
[2024-09-09 01:52] LABS: BASOPHILS ABSOLUTE AUTO 0.02 K/mm3 (0.00-0.23); BASOPHILS PERCENT AUTO 0 % (0-2); EOSINOPHILS ABSOLUTE AUTO 0.25 K/mm3 (0.00-0.68); EOSINOPHILS PERCENT AUTO 5 % (0-6); Hematocrit 35.1 % (37.0-53.0); Hemoglobin 11.9 g/dL (13.5-17.5); IMMATURE GRAN ABSOLUTE AUTO 0.03 K/mm3 (0.00-0.10); IMMATURE GRAN PERCENT AUTO 1 % (0-1); LYMPHOCYTES ABSOLUTE AUTO 1.33 K/mm3 (0.84-5.20); LYMPHOCYTES PERCENT AUTO 26 % (21-46); MONOCYTES ABSOLUTE AUTO 0.66 K/mm3 (0.16-1.47); MONOCYTES PERCENT AUTO 13 % (4-13); Mean Corpuscular HGB 34.5 pg (26.0-34.0); Mean Corpuscular HGB Conc 33.9 g/dL (31.5-36.5); Mean Corpuscular Volume 102 fL (80-100); NEUTROPHILS ABSOLUTE AUTO 2.87 K/mm3 (1.96-9.15); NEUTROPHILS PERCENT AUTO 56 % (41-73); Platelet Count 338 K/mm3 (150-400); RDW Coefficient Variation 13.2 % (11.7-14.2); RDW Standard Deviation 49.4 fL (35.1-46.3); Red Blood Cell Count 3.45 M/mm3 (4.30-5.90); White Blood Cell Count 5.16 K/mm3 (4.00-11.30)
[2024-09-09 02:06] LABS: Bun/Creatinine Ratio 22.9 (12.0-20.0); Calcium, Blood 8.8 mg/dL (8.5-10.1); Creatinine, Blood 0.66 mg/dL (0.60-1.20); Potassium, Blood 3.5 mmol/L (3.5-5.5)
[2024-09-09 04:00] VITALS: BP 158/95
== END 2024-09-09 04:08 | disposition home or self-care (01) ==
LOC: ER 23:50
PROVIDERS: Student in an Organized Health Care Education/Training Program
DX: L97.919 Non-pressure chronic ulcer of unspecified part of right lower leg with unspecified severity (principal); F43.10 Post-traumatic stress disorder, unspecified; K21.9 Gastro-esophageal reflux disease without esophagitis; I10 Essential (primary) hypertension; Z87.891 Personal history of nicotine dependence; Z79.84 Long term (current) use of oral hypoglycemic drugs; Z79.899 Other long term (current) drug therapy; Z88.8 Allergy status to other drugs, medicaments and biological substances
CPT/HCPCS: 80048; 85025; 85651; 96374; 99283; J1171

== ENCOUNTER 2024-09-14 02:36 | Day surgery (SDC) | payer OTHER ==
[2024-09-14] MEDS ORDERED: Lidocaine HCl 4% Cream 5 GM ONE (09:37)
== END 2024-09-14 23:00 | disposition home or self-care (01) ==
LOC: WOUND 02:36
DX: I87.313 Chronic venous hypertension (idiopathic) with ulcer of bilateral lower extremity (principal); L97.812 Non-pressure chronic ulcer of other part of right lower leg with fat layer exposed; L97.822 Non-pressure chronic ulcer of other part of left lower leg with fat layer exposed; I87.2 Venous insufficiency (chronic) (peripheral); I73.9 Peripheral vascular disease, unspecified; I10 Essential (primary) hypertension
CPT/HCPCS: A9270

== ENCOUNTER 2024-09-21 03:43 | Day surgery (SDC) | payer OTHER ==
[2024-09-21] MEDS ORDERED: Lidocaine HCl 4% Cream 5 GM ONE (07:45)
== END 2024-09-21 23:00 | disposition home or self-care (01) ==
LOC: WOUND 03:43
DX: I87.313 Chronic venous hypertension (idiopathic) with ulcer of bilateral lower extremity (principal); L97.812 Non-pressure chronic ulcer of other part of right lower leg with fat layer exposed; L97.222 Non-pressure chronic ulcer of left calf with fat layer exposed; I87.2 Venous insufficiency (chronic) (peripheral); I73.9 Peripheral vascular disease, unspecified; I27.0 Primary pulmonary hypertension
CPT/HCPCS: A9270; Q4133

== ENCOUNTER 2024-09-27 04:07 | Day surgery (SDC) | payer OTHER ==
[2024-09-27] MEDS ORDERED: Lidocaine HCl 4% Cream 5 GM ONE (07:49)
== END 2024-09-27 23:00 | disposition home or self-care (01) ==
LOC: WOUND 04:07
DX: L97.812 Non-pressure chronic ulcer of other part of right lower leg with fat layer exposed (principal); I87.2 Venous insufficiency (chronic) (peripheral); I73.9 Peripheral vascular disease, unspecified; I10 Essential (primary) hypertension
CPT/HCPCS: A9270; Q4133

== ENCOUNTER 2024-10-03 04:30 | Day surgery (SDC) | payer OTHER ==
[2024-10-03] MEDS ORDERED: Lidocaine HCl 4% Cream 5 GM ONE (07:48)
== END 2024-10-03 23:31 | disposition home or self-care (01) ==
LOC: WOUND 04:30
DX: I87.313 Chronic venous hypertension (idiopathic) with ulcer of bilateral lower extremity (principal); L97.812 Non-pressure chronic ulcer of other part of right lower leg with fat layer exposed; L97.222 Non-pressure chronic ulcer of left calf with fat layer exposed; I87.2 Venous insufficiency (chronic) (peripheral); I73.9 Peripheral vascular disease, unspecified; I27.0 Primary pulmonary hypertension
CPT/HCPCS: A9270; Q4133

== ENCOUNTER 2024-10-11 01:05 | Day surgery (SDC) | payer OTHER ==
[2024-10-11] MEDS ORDERED: Lidocaine HCl 4% Cream 5 GM ONE (08:06)
== END 2024-10-11 23:00 | disposition home or self-care (01) ==
LOC: WOUND 01:05
DX: I87.313 Chronic venous hypertension (idiopathic) with ulcer of bilateral lower extremity (principal); L97.812 Non-pressure chronic ulcer of other part of right lower leg with fat layer exposed; L97.222 Non-pressure chronic ulcer of left calf with fat layer exposed; I87.2 Venous insufficiency (chronic) (peripheral); I73.9 Peripheral vascular disease, unspecified; I27.0 Primary pulmonary hypertension
CPT/HCPCS: A9270; Q4133

== ENCOUNTER 2024-10-18 05:56 | Day surgery (SDC) | payer OTHER ==
[2024-10-18] MEDS ORDERED: Lidocaine HCl 4% Cream 5 GM ONE (07:45)
== END 2024-10-18 23:00 | disposition home or self-care (01) ==
LOC: WOUND 05:56
DX: I87.313 Chronic venous hypertension (idiopathic) with ulcer of bilateral lower extremity (principal); L97.812 Non-pressure chronic ulcer of other part of right lower leg with fat layer exposed; L97.222 Non-pressure chronic ulcer of left calf with fat layer exposed; I87.2 Venous insufficiency (chronic) (peripheral); I73.9 Peripheral vascular disease, unspecified; I27.0 Primary pulmonary hypertension
CPT/HCPCS: A9270; Q4133

== ENCOUNTER 2024-10-26 01:27 | Day surgery (SDC) | payer OTHER ==
[2024-10-26] MEDS ORDERED: Lidocaine HCl 4% Cream 5 GM ONE (07:45)
== END 2024-10-26 22:53 | disposition home or self-care (01) ==
LOC: WOUND 01:27
DX: I87.313 Chronic venous hypertension (idiopathic) with ulcer of bilateral lower extremity (principal); L97.812 Non-pressure chronic ulcer of other part of right lower leg with fat layer exposed; L97.222 Non-pressure chronic ulcer of left calf with fat layer exposed; I87.2 Venous insufficiency (chronic) (peripheral); I73.9 Peripheral vascular disease, unspecified; I27.0 Primary pulmonary hypertension
CPT/HCPCS: A9270

== ENCOUNTER 2024-10-31 03:56 | Day surgery (SDC) | payer OTHER ==
[2024-10-31] MEDS ORDERED: Lidocaine HCl 4% Cream 5 GM ONE (07:47)
== END 2024-10-31 23:00 | disposition home or self-care (01) ==
LOC: WOUND 03:56
DX: I87.311 Chronic venous hypertension (idiopathic) with ulcer of right lower extremity (principal); L97.812 Non-pressure chronic ulcer of other part of right lower leg with fat layer exposed; I10 Essential (primary) hypertension; I87.2 Venous insufficiency (chronic) (peripheral); I73.9 Peripheral vascular disease, unspecified
CPT/HCPCS: A9270; Q4133

== ENCOUNTER 2024-11-07 06:13 | Day surgery (SDC) | payer OTHER ==
[2024-11-07] MEDS ORDERED: Lidocaine HCl 4% Cream 5 GM ONE (08:50)
[2024-11-07] MEDS ORDERED: Triamcinolone Acet 0.1% Cream 15 gm ONE (09:26)
== END 2024-11-07 23:00 | disposition home or self-care (01) ==
LOC: WOUND 06:13
DX: I87.313 Chronic venous hypertension (idiopathic) with ulcer of bilateral lower extremity (principal); L97.812 Non-pressure chronic ulcer of other part of right lower leg with fat layer exposed; L97.222 Non-pressure chronic ulcer of left calf with fat layer exposed; I10 Essential (primary) hypertension; I87.2 Venous insufficiency (chronic) (peripheral); I73.9 Peripheral vascular disease, unspecified
CPT/HCPCS: A9270; Q4133

== ENCOUNTER 2024-11-14 06:15 | Day surgery (SDC) | payer OTHER ==
[2024-11-14] MEDS ORDERED: Lidocaine HCl 4% Cream 5 GM ONE (09:06)
[2024-11-14] MEDS ORDERED: Triamcinolone Acet 0.1% Cream 15 gm ONE (09:35)
== END 2024-11-14 23:00 | disposition home or self-care (01) ==
LOC: WOUND 06:15
DX: I87.311 Chronic venous hypertension (idiopathic) with ulcer of right lower extremity (principal); L97.812 Non-pressure chronic ulcer of other part of right lower leg with fat layer exposed; I87.2 Venous insufficiency (chronic) (peripheral); I73.9 Peripheral vascular disease, unspecified; I10 Essential (primary) hypertension
CPT/HCPCS: A9270; Q4133

== ENCOUNTER 2024-11-20 05:02 | Emergency (ER) | payer OTHER ==
[~2024-11-20] VITALS: Ht 165.1 cm; Wt 117.0 kg
[2024-11-20 06:14] VITALS: BP 129/87
[2024-11-20] MEDS ORDERED: Morphine Sulfate 4 MG/1 ML Injection IM ONE (06:35)
[2024-11-20] MEDS ORDERED: Ketorolac Tromethamine 15mg Vial IM ONE (06:35)
[2024-11-20] MEDS ORDERED: Acetaminophen 500 MG Tab PO ONE (06:35)
[2024-11-20] MEDS ORDERED: Clindamycin HCl 150 MG Cap PO ONE (06:35)
[2024-11-20] MEDS ORDERED: Clindamycin HC150 MG PO (06:36)
== END 2024-11-20 07:55 | disposition home or self-care (01) ==
LOC: ER 05:02
DX: L03.115 Cellulitis of right lower limb (principal); I10 Essential (primary) hypertension; F43.10 Post-traumatic stress disorder, unspecified; K21.9 Gastro-esophageal reflux disease without esophagitis; Z87.891 Personal history of nicotine dependence; Z88.8 Allergy status to other drugs, medicaments and biological substances; Z79.02 Long term (current) use of antithrombotics/antiplatelets; Z79.899 Other long term (current) drug therapy; Z79.01 Long term (current) use of anticoagulants; Z79.84 Long term (current) use of oral hypoglycemic drugs
CPT/HCPCS: 96372; 99282-25; A9270; J1885; J2270

== ENCOUNTER 2024-11-22 09:14 | Day surgery (SDC) | payer OTHER ==
[~2024-11-22 09:14] MED LIST changes: +Clindamycin HC150 MG PO
== END 2024-11-22 23:00 | disposition home or self-care (01) ==
LOC: WOUND 09:14
DX: I87.313 Chronic venous hypertension (idiopathic) with ulcer of bilateral lower extremity (principal); L97.812 Non-pressure chronic ulcer of other part of right lower leg with fat layer exposed; L97.222 Non-pressure chronic ulcer of left calf with fat layer exposed; I87.2 Venous insufficiency (chronic) (peripheral); I73.9 Peripheral vascular disease, unspecified; I27.0 Primary pulmonary hypertension
CPT/HCPCS: A6196; Q4133

== ENCOUNTER 2024-12-06 00:21 | Day surgery (SDC) | payer OTHER ==
[2024-12-06] MEDS ORDERED: Lidocaine HCl 4% Cream 5 GM ONE (07:57)
[2024-12-06] MEDS ORDERED: Triamcinolone Acet 0.1% Cream 15 gm ONE (08:13)
== END 2024-12-06 23:00 | disposition home or self-care (01) ==
LOC: WOUND 00:21
DX: I87.313 Chronic venous hypertension (idiopathic) with ulcer of bilateral lower extremity (principal); L97.812 Non-pressure chronic ulcer of other part of right lower leg with fat layer exposed; L97.222 Non-pressure chronic ulcer of left calf with fat layer exposed; I87.2 Venous insufficiency (chronic) (peripheral); I73.9 Peripheral vascular disease, unspecified; I27.0 Primary pulmonary hypertension
CPT/HCPCS: A9270

== ENCOUNTER 2024-12-13 00:31 | Day surgery (SDC) | payer OTHER ==
[2024-12-13] MEDS ORDERED: Lidocaine HCl 4% Cream 5 GM ONE (07:56)
[2024-12-13] MEDS ORDERED: Triamcinolone Acet 0.1% Cream 15 gm ONE (08:23)
== END 2024-12-13 23:00 | disposition home or self-care (01) ==
LOC: WOUND 00:31
DX: I87.313 Chronic venous hypertension (idiopathic) with ulcer of bilateral lower extremity (principal); L97.815 Non-pressure chronic ulcer of other part of right lower leg with muscle involvement without evidence of necrosis; L97.822 Non-pressure chronic ulcer of other part of left lower leg with fat layer exposed; L97.222 Non-pressure chronic ulcer of left calf with fat layer exposed; I87.2 Venous insufficiency (chronic) (peripheral); I73.9 Peripheral vascular disease, unspecified; I27.0 Primary pulmonary hypertension
CPT/HCPCS: A9270; Q4133

== ENCOUNTER 2024-12-14 21:36 | Emergency (ER) | payer OTHER ==
[~2024-12-14] VITALS: Ht 165.1 cm; Wt 72.1 kg
[2024-12-14] MEDS ORDERED: Morphine Sulfate 10 MG/ML 1MLSYR IM ONE (23:20)
[2024-12-14 23:28] VITALS: BP 114/56
== END 2024-12-15 00:16 | disposition home or self-care (01) ==
LOC: ER 21:36
DX: L97.829 Non-pressure chronic ulcer of other part of left lower leg with unspecified severity (principal); L97.819 Non-pressure chronic ulcer of other part of right lower leg with unspecified severity; G89.29 Other chronic pain; I10 Essential (primary) hypertension; G47.33 Obstructive sleep apnea (adult) (pediatric); K21.9 Gastro-esophageal reflux disease without esophagitis; Z88.8 Allergy status to other drugs, medicaments and biological substances; Z79.84 Long term (current) use of oral hypoglycemic drugs; Z79.899 Other long term (current) drug therapy; Z59.89 Other problems related to housing and economic circumstances
CPT/HCPCS: 96372; 99283-25; J2270

== ENCOUNTER 2024-12-20 03:27 | Day surgery (SDC) | payer OTHER ==
[2024-12-20] MEDS ORDERED: Lidocaine HCl 4% Cream 5 GM ONE (07:50)
== END 2024-12-20 23:09 | disposition home or self-care (01) ==
LOC: WOUND 03:27
DX: L97.815 Non-pressure chronic ulcer of other part of right lower leg with muscle involvement without evidence of necrosis (principal); L97.222 Non-pressure chronic ulcer of left calf with fat layer exposed; I87.313 Chronic venous hypertension (idiopathic) with ulcer of bilateral lower extremity; I87.2 Venous insufficiency (chronic) (peripheral); I73.9 Peripheral vascular disease, unspecified; I27.0 Primary pulmonary hypertension; Z79.84 Long term (current) use of oral hypoglycemic drugs; Z79.899 Other long term (current) drug therapy; Z88.8 Allergy status to other drugs, medicaments and biological substances
CPT/HCPCS: A9270; Q4133

== ENCOUNTER 2024-12-21 04:39 | Emergency (ER) | payer OTHER ==
[~2024-12-21] VITALS: Ht 165.1 cm; Wt 117.5 kg
[2024-12-21 04:44] VITALS: BP 164/109
[2024-12-21] MEDS ORDERED: Morphine Sulfate 4 MG/1 ML Injection IV ONE (05:05)
[2024-12-21] MEDS ORDERED: Ketorolac Tromethamine 30mg Vial IV ONE (05:05)
[2024-12-21] MEDS ORDERED: Ondansetron HCl 2 MG / ML 2ML Vial IV ONE (05:05)
== END 2024-12-21 05:33 | disposition home or self-care (01) ==
LOC: ER 04:39
DX: G89.18 Other acute postprocedural pain (principal); L97.819 Non-pressure chronic ulcer of other part of right lower leg with unspecified severity; G47.30 Sleep apnea, unspecified; Z98.890 Other specified postprocedural states; Z87.891 Personal history of nicotine dependence; Z59.89 Other problems related to housing and economic circumstances; Z79.84 Long term (current) use of oral hypoglycemic drugs; Z79.899 Other long term (current) drug therapy
CPT/HCPCS: 96374; 96375; 99282; J1885; J2270; J2405

== ENCOUNTER 2024-12-22 11:19 | Emergency (ER) | payer OTHER ==
[~2024-12-22] VITALS: Ht 165.1 cm; Wt 72.1 kg
[2024-12-22 11:24] VITALS: BP 176/99
[2024-12-22] MEDS ORDERED: Morphine Sulfate 10 MG/ML 1MLSYR IM ONE (11:35)
[2024-12-22] MEDS ORDERED: Ketorolac Tromethamine 30mg Vial IM ONE (11:35)
== END 2024-12-22 13:00 | disposition home or self-care (01) ==
LOC: ER 11:19
DX: Z48.00 Encounter for change or removal of nonsurgical wound dressing (principal)
CPT/HCPCS: 96372; 99282-25; J1885; J2270

== ENCOUNTER 2024-12-25 21:31 | Emergency (ER) | payer OTHER ==
[~2024-12-25] VITALS: Ht 165.1 cm; Wt 117.5 kg
[2024-12-25 21:37] VITALS: BP 166/103
[2024-12-25] MEDS ORDERED: Ketorolac Tromethamine 15mg Vial IM ONE (22:40)
[2024-12-25] MEDS ORDERED: OxyCODONE HCL 5 MG TAB PO ONE (22:40)
== END 2024-12-25 23:00 | disposition home or self-care (01) ==
LOC: ER 21:31
DX: M79.604 Pain in right leg (principal); M79.605 Pain in left leg; G89.29 Other chronic pain; I10 Essential (primary) hypertension; K21.9 Gastro-esophageal reflux disease without esophagitis; G47.33 Obstructive sleep apnea (adult) (pediatric); Z98.890 Other specified postprocedural states; Z87.891 Personal history of nicotine dependence; Z88.8 Allergy status to other drugs, medicaments and biological substances; Z79.899 Other long term (current) drug therapy; Z79.84 Long term (current) use of oral hypoglycemic drugs
CPT/HCPCS: 96372; 99283-25; A9270; J1885

== ENCOUNTER 2024-12-27 00:36 | Day surgery (SDC) | payer OTHER ==
[2024-12-27] MEDS ORDERED: Lidocaine HCl 4% Cream 5 GM ONE (08:12)
[2024-12-27] MEDS ORDERED: Triamcinolone Acet 0.1% Cream 15 gm ONE (08:53)
[2024-12-28] MEDS ORDERED: Percocet 5-3251 EACH PO (20:41)
== END 2024-12-27 23:04 | disposition home or self-care (01) ==
LOC: WOUND 00:36
DX: I87.313 Chronic venous hypertension (idiopathic) with ulcer of bilateral lower extremity (principal); L97.815 Non-pressure chronic ulcer of other part of right lower leg with muscle involvement without evidence of necrosis; L97.812 Non-pressure chronic ulcer of other part of right lower leg with fat layer exposed; L97.222 Non-pressure chronic ulcer of left calf with fat layer exposed; I87.2 Venous insufficiency (chronic) (peripheral); I73.9 Peripheral vascular disease, unspecified; I27.0 Primary pulmonary hypertension
CPT/HCPCS: A9270; Q4151

== ENCOUNTER 2024-12-28 20:01 | Emergency (ER) | payer OTHER ==
[~2024-12-28] VITALS: Ht 165.1 cm; Wt 117.7 kg
[2024-12-28 20:02] VITALS: BP 192/98
[2024-12-28] MEDS ORDERED: RX Prepack 6 Tabs Oxycodone 5mg UD ONE (20:35)
[2024-12-28] MEDS ORDERED: Cephalexin Monohydrate 500 MG Cap PO ONE (20:40)
[2024-12-28] MEDS ORDERED: Percocet 5-3251 EACH PO (20:41)
[2024-12-28] MEDS ORDERED: Ketorolac Tromethamine 15mg Vial IM ONE (20:45)
== END 2024-12-28 20:51 | disposition home or self-care (01) ==
LOC: ER 20:01
DX: M79.661 Pain in right lower leg (principal); G89.29 Other chronic pain; Z48.817 Encounter for surgical aftercare following surgery on the skin and subcutaneous tissue; Z88.8 Allergy status to other drugs, medicaments and biological substances; Z79.84 Long term (current) use of oral hypoglycemic drugs; Z79.899 Other long term (current) drug therapy; I10 Essential (primary) hypertension; G47.33 Obstructive sleep apnea (adult) (pediatric); K21.9 Gastro-esophageal reflux disease without esophagitis
CPT/HCPCS: 96372; 99282-25; A9270; J1885

== ENCOUNTER 2025-01-03 02:54 | Day surgery (SDC) | payer OTHER ==
[~2025-01-03 02:54] MED LIST changes: +Percocet 5-3251 EACH PO
[2025-01-03] MEDS ORDERED: Lidocaine HCl 4% Cream 5 GM ONE (07:56)
[2025-01-03] MEDS ORDERED: Triamcinolone Acet 0.1% Cream 15 gm ONE (08:05)
== END 2025-01-03 22:56 | disposition home or self-care (01) ==
LOC: WOUND 02:54
DX: I87.313 Chronic venous hypertension (idiopathic) with ulcer of bilateral lower extremity (principal); L97.812 Non-pressure chronic ulcer of other part of right lower leg with fat layer exposed; L97.222 Non-pressure chronic ulcer of left calf with fat layer exposed; I87.2 Venous insufficiency (chronic) (peripheral); I73.9 Peripheral vascular disease, unspecified; I27.0 Primary pulmonary hypertension
CPT/HCPCS: A9270; Q4151

== ENCOUNTER 2025-01-11 01:30 | Day surgery (SDC) | payer OTHER ==
[2025-01-11] MEDS ORDERED: Lidocaine HCl 4% Cream 5 GM ONE (07:52)
== END 2025-01-11 23:00 | disposition home or self-care (01) ==
LOC: WOUND 01:30
DX: I87.313 Chronic venous hypertension (idiopathic) with ulcer of bilateral lower extremity (principal); L97.812 Non-pressure chronic ulcer of other part of right lower leg with fat layer exposed; L97.222 Non-pressure chronic ulcer of left calf with fat layer exposed; I87.2 Venous insufficiency (chronic) (peripheral); I73.9 Peripheral vascular disease, unspecified; I27.0 Primary pulmonary hypertension; M79.661 Pain in right lower leg; G89.29 Other chronic pain; Z48.00 Encounter for change or removal of nonsurgical wound dressing; G47.30 Sleep apnea, unspecified; Z88.8 Allergy status to other drugs, medicaments and biological substances; Z79.84 Long term (current) use of oral hypoglycemic drugs; Z87.891 Personal history of nicotine dependence; Z79.899 Other long term (current) drug therapy; Z59.89 Other problems related to housing and economic circumstances
CPT/HCPCS: 96372; 99283-25; A9270; J1885

== ENCOUNTER 2025-01-17 02:25 | Day surgery (SDC) | payer OTHER ==
[2025-01-17] MEDS ORDERED: Lidocaine HCl 4% Cream 5 GM ONE (08:03)
== END 2025-01-17 23:00 ==
LOC: WOUND 02:25
DX: I87.311 Chronic venous hypertension (idiopathic) with ulcer of right lower extremity (principal); L97.815 Non-pressure chronic ulcer of other part of right lower leg with muscle involvement without evidence of necrosis; L97.812 Non-pressure chronic ulcer of other part of right lower leg with fat layer exposed; I87.2 Venous insufficiency (chronic) (peripheral); I73.9 Peripheral vascular disease, unspecified; I27.0 Primary pulmonary hypertension; Z88.8 Allergy status to other drugs, medicaments and biological substances
CPT/HCPCS: 88305; 88312; 88313; A9270

== ENCOUNTER 2025-01-19 19:34 | Emergency (ER) | payer OTHER ==
[~2025-01-19] VITALS: Ht 170.2 cm; Wt 93.0 kg
[2025-01-19 19:41] VITALS: BP 174/90
[2025-01-19] MEDS ORDERED: Ketorolac Tromethamine 30mg Vial IM ONE (22:05)
[2025-01-19] MEDS ORDERED: OxyCODONE 10/Acetamin 325 TABLET PO ONE (22:05)
== END 2025-01-19 23:12 | disposition home or self-care (01) ==
LOC: ER 19:34
DX: S81.801A Unspecified open wound, right lower leg, initial encounter (principal); I10 Essential (primary) hypertension; K21.9 Gastro-esophageal reflux disease without esophagitis; Z88.8 Allergy status to other drugs, medicaments and biological substances; Z79.899 Other long term (current) drug therapy; Z79.890 Hormone replacement therapy; Z79.1 Long term (current) use of non-steroidal anti-inflammatories (NSAID); Z79.51 Long term (current) use of inhaled steroids; Z79.52 Long term (current) use of systemic steroids; Z79.01 Long term (current) use of anticoagulants; X58.XXXA Exposure to other specified factors, initial encounter
CPT/HCPCS: 96372; 99283; A9270; J1885

== ENCOUNTER 2025-01-21 03:06 | Emergency (ER) | payer OTHER ==
[~2025-01-21] VITALS: Ht 165.1 cm; Wt 106.1 kg
[2025-01-21] MEDS ORDERED: FentaNYL Citrate 50 MCG/ML 2 ML Injection IV ONE (04:50)
[2025-01-21 05:22] LABS: BASOPHILS ABSOLUTE AUTO 0.03 K/mm3 (0.00-0.23); BASOPHILS PERCENT AUTO 0 % (0-2); EOSINOPHILS ABSOLUTE AUTO 0.21 K/mm3 (0.00-0.68); EOSINOPHILS PERCENT AUTO 3 % (0-6); Hematocrit 34.9 % (37.0-53.0); Hemoglobin 11.9 g/dL (13.5-17.5); IMMATURE GRAN ABSOLUTE AUTO 0.04 K/mm3 (0.00-0.10); IMMATURE GRAN PERCENT AUTO 1 % (0-1); LYMPHOCYTES ABSOLUTE AUTO 1.05 K/mm3 (0.84-5.20); LYMPHOCYTES PERCENT AUTO 15 % (21-46); MONOCYTES ABSOLUTE AUTO 0.78 K/mm3 (0.16-1.47); MONOCYTES PERCENT AUTO 11 % (4-13); Mean Corpuscular HGB 34.1 pg (26.0-34.0); Mean Corpuscular HGB Conc 34.1 g/dL (31.5-36.5); Mean Corpuscular Volume 100 fL (80-100); Mean Platelet Volume 8.3 fL (9.1-12.4); NEUTROPHILS ABSOLUTE AUTO 4.91 K/mm3 (1.96-9.15); NEUTROPHILS PERCENT AUTO 70 % (41-73); Platelet Count 361 K/mm3 (150-400); RDW Coefficient Variation 13.9 % (11.7-14.2); RDW Standard Deviation 51.1 fL (35.1-46.3); Red Blood Cell Count 3.49 M/mm3 (4.30-5.90); White Blood Cell Count 7.02 K/mm3 (4.00-11.30)
[2025-01-21 05:51] LABS: Albumin, Blood 3.6 g/dL (3.4-5.0); Albumin/Globulin Ratio 1.2 (0.8-1.8); Bilirubin, Total 0.2 mg/dL (0.1-1.0); Bun/Creatinine Ratio 24.1 (12.0-20.0); Calcium, Blood 8.5 mg/dL (8.5-10.1); Creatinine, Blood 0.58 mg/dL (0.60-1.20); Total Protein, Blood 6.6 g/dL (6.4-8.2)
[2025-01-21] MEDS ORDERED: Lidocaine HCl 2% Jelly 120MG/6ML SYR (20MG PER ML) TOP ONE (06:15)
[2025-01-21] MEDS ORDERED: Lidocaine 2% Jelly Uro-Jet UR ONE (06:25)
[2025-01-21] MEDS ORDERED: Lidocaine/Tetracaine/Epinephr 3 ML GEL SYRINGE TOP ONE (06:30)
[2025-01-21 06:45] VITALS: BP 115/76
== END 2025-01-21 06:59 | disposition home or self-care (01) ==
LOC: ER 03:06
PROVIDERS: Student in an Organized Health Care Education/Training Program
DX: Z48.817 Encounter for surgical aftercare following surgery on the skin and subcutaneous tissue (principal); F43.10 Post-traumatic stress disorder, unspecified; I10 Essential (primary) hypertension; K21.9 Gastro-esophageal reflux disease without esophagitis; Z87.891 Personal history of nicotine dependence; Z79.899 Other long term (current) drug therapy; Z79.84 Long term (current) use of oral hypoglycemic drugs; Z88.8 Allergy status to other drugs, medicaments and biological substances
CPT/HCPCS: 80053; 85025; 96374; 99283-25; A9270; J3010

== ENCOUNTER 2025-01-26 19:08 | Emergency (ER) | payer OTHER ==
[~2025-01-26] VITALS: Ht 165.1 cm; Wt 117.5 kg
[2025-01-26 21:37] LABS: BASOPHILS ABSOLUTE AUTO 0.03 K/mm3 (0.00-0.23); BASOPHILS PERCENT AUTO 1 % (0-2); EOSINOPHILS ABSOLUTE AUTO 0.17 K/mm3 (0.00-0.68); EOSINOPHILS PERCENT AUTO 3 % (0-6); Hematocrit 35.2 % (37.0-53.0); IMMATURE GRAN ABSOLUTE AUTO 0.04 K/mm3 (0.00-0.10); IMMATURE GRAN PERCENT AUTO 1 % (0-1); LYMPHOCYTES ABSOLUTE AUTO 1.28 K/mm3 (0.84-5.20); LYMPHOCYTES PERCENT AUTO 20 % (21-46); MONOCYTES ABSOLUTE AUTO 0.66 K/mm3 (0.16-1.47); MONOCYTES PERCENT AUTO 10 % (4-13); Mean Corpuscular HGB 33.7 pg (26.0-34.0); Mean Corpuscular HGB Conc 34.1 g/dL (31.5-36.5); Mean Corpuscular Volume 99 fL (80-100); Mean Platelet Volume 8.3 fL (9.1-12.4); NEUTROPHILS ABSOLUTE AUTO 4.15 K/mm3 (1.96-9.15); NEUTROPHILS PERCENT AUTO 66 % (41-73); Platelet Count 347 K/mm3 (150-400); RDW Standard Deviation 51.4 fL (35.1-46.3); Red Blood Cell Count 3.56 M/mm3 (4.30-5.90); White Blood Cell Count 6.33 K/mm3 (4.00-11.30)
[2025-01-26] MEDS ORDERED: Ketorolac Tromethamine 15mg Vial IV ONE (22:30)
[2025-01-26] MEDS ORDERED: RX Prepack 6 Tabs Oxycodone 5mg UD ONE (22:30)
[2025-01-26] MEDS ORDERED: OxyCODONE HCL 5 MG TAB PO ONE (22:30)
[2025-01-26 23:00] VITALS: BP 132/74
== END 2025-01-26 23:02 | disposition home or self-care (01) ==
LOC: ER 19:08
PROVIDERS: Student in an Organized Health Care Education/Training Program
DX: L98.9 Disorder of the skin and subcutaneous tissue, unspecified (principal); I10 Essential (primary) hypertension; K21.9 Gastro-esophageal reflux disease without esophagitis; G47.33 Obstructive sleep apnea (adult) (pediatric); Z86.16 Personal history of COVID-19; Z87.891 Personal history of nicotine dependence; Z88.8 Allergy status to other drugs, medicaments and biological substances; Z79.84 Long term (current) use of oral hypoglycemic drugs; Z79.899 Other long term (current) drug therapy
CPT/HCPCS: 85025; 96374; 99283-25; A9270; J1885

== ENCOUNTER 2025-01-29 19:22 | Emergency (ER) | payer OTHER ==
[~2025-01-29] VITALS: Ht 165.1 cm; Wt 117.5 kg
[2025-01-29 19:56] VITALS: BP 178/103
[2025-01-29] MEDS ORDERED: Ketorolac Tromethamine 15mg Vial IM ONE (21:00)
== END 2025-01-29 21:10 | disposition home or self-care (01) ==
LOC: ER 19:22
DX: L97.818 Non-pressure chronic ulcer of other part of right lower leg with other specified severity (principal); G47.33 Obstructive sleep apnea (adult) (pediatric); K21.9 Gastro-esophageal reflux disease without esophagitis; Z87.891 Personal history of nicotine dependence; Z88.8 Allergy status to other drugs, medicaments and biological substances; Z79.84 Long term (current) use of oral hypoglycemic drugs; Z79.899 Other long term (current) drug therapy
CPT/HCPCS: 96372; 99282-25; J1885

== ENCOUNTER → 2025-01-31 | Day surgery (SDC) | payer OTHER ==
[~2025-01-31] MED LIST changes: +Lidocaine HCl 4% Cream 5 GM ONE; +Triamcinolone Acet 0.1% Cream 15 gm ONE
== END ==
LOC: WOUND 04:32
DX: I87.313 Chronic venous hypertension (idiopathic) with ulcer of bilateral lower extremity (principal); L97.812 Non-pressure chronic ulcer of other part of right lower leg with fat layer exposed; L97.222 Non-pressure chronic ulcer of left calf with fat layer exposed; I87.2 Venous insufficiency (chronic) (peripheral); I73.9 Peripheral vascular disease, unspecified; I27.0 Primary pulmonary hypertension
CPT/HCPCS: A9270

== ENCOUNTER 2025-02-06 08:18 | Day surgery (SDC) | payer OTHER ==
[~2025-02-06 08:18] MED LIST changes: -Lidocaine HCl 4% Cream 5 GM ONE; -Triamcinolone Acet 0.1% Cream 15 gm ONE
[2025-02-06] MEDS ORDERED: Lidocaine HCl 4% Cream 5 GM ONE (08:45)
== END 2025-02-06 23:00 | disposition home or self-care (01) ==
LOC: WOUND 08:18
DX: I87.313 Chronic venous hypertension (idiopathic) with ulcer of bilateral lower extremity (principal); L97.815 Non-pressure chronic ulcer of other part of right lower leg with muscle involvement without evidence of necrosis; L97.812 Non-pressure chronic ulcer of other part of right lower leg with fat layer exposed; L97.222 Non-pressure chronic ulcer of left calf with fat layer exposed; I87.2 Venous insufficiency (chronic) (peripheral); I73.9 Peripheral vascular disease, unspecified; I27.0 Primary pulmonary hypertension
CPT/HCPCS: A9270

== ENCOUNTER 2025-02-13 06:08 | Emergency (ER) | payer OTHER ==
[~2025-02-13] VITALS: Ht 165.1 cm; Wt 118.8 kg
[2025-02-13] MEDS ORDERED: Acetaminophen 500 MG Tab PO ONE (07:55)
[2025-02-13] MEDS ORDERED: OxyCODONE HCL 5 MG TAB PO ONE (07:55)
[2025-02-13] MEDS ORDERED: Ketorolac Tromethamine 15mg Vial IV ONE (07:55)
[2025-02-13] MEDS ORDERED: Ketamine HCl 100 MG / ML 5ML Vial IV ONE ×2 (10:20→10:45)
[2025-02-13] MEDS ORDERED: NS 1,000 ML IV SCH (11:05)
[2025-02-13 12:18] VITALS: BP 149/101
== END 2025-02-13 12:20 | disposition home or self-care (01) ==
LOC: ER 06:08
DX: E11.622 Type 2 diabetes mellitus with other skin ulcer (principal); L97.819 Non-pressure chronic ulcer of other part of right lower leg with unspecified severity; G89.29 Other chronic pain; I10 Essential (primary) hypertension; F32.A Depression, unspecified; G47.33 Obstructive sleep apnea (adult) (pediatric); K21.9 Gastro-esophageal reflux disease without esophagitis; Z88.8 Allergy status to other drugs, medicaments and biological substances; Z79.899 Other long term (current) drug therapy; Z79.84 Long term (current) use of oral hypoglycemic drugs; Z87.891 Personal history of nicotine dependence
CPT/HCPCS: 96374; 96375; 99282-25; A9270; J1885; J7030

== ENCOUNTER 2025-02-14 02:20 | Day surgery (SDC) | payer OTHER ==
[2025-02-14] MEDS ORDERED: Lidocaine HCl 4% Cream 5 GM ONE (08:41)
[2025-02-14] MEDS ORDERED: Triamcinolone Acet 0.1% Cream 15 gm ONE (09:15)
== END 2025-02-14 23:35 | disposition home or self-care (01) ==
LOC: WOUND 02:20
DX: I87.311 Chronic venous hypertension (idiopathic) with ulcer of right lower extremity (principal); L97.812 Non-pressure chronic ulcer of other part of right lower leg with fat layer exposed; I87.2 Venous insufficiency (chronic) (peripheral); I73.9 Peripheral vascular disease, unspecified; I27.0 Primary pulmonary hypertension; Z88.8 Allergy status to other drugs, medicaments and biological substances
CPT/HCPCS: A9270

== ENCOUNTER 2025-02-21 02:07 | Day surgery (SDC) | payer OTHER ==
[2025-02-21] MEDS ORDERED: Lidocaine HCl 4% Cream 5 GM ONE (08:29)
[2025-03-08] MEDS ORDERED: DOXY100 PO (23:44)
== END 2025-02-21 23:26 | disposition home or self-care (01) ==
LOC: WOUND 02:07
DX: I87.311 Chronic venous hypertension (idiopathic) with ulcer of right lower extremity (principal); L97.812 Non-pressure chronic ulcer of other part of right lower leg with fat layer exposed; I87.2 Venous insufficiency (chronic) (peripheral); I73.9 Peripheral vascular disease, unspecified; I27.0 Primary pulmonary hypertension
CPT/HCPCS: A9270; Q4151

== ENCOUNTER 2025-02-27 15:41 | Emergency (ER) | payer OTHER ==
[~2025-02-27] VITALS: Ht 165.1 cm; Wt 118.4 kg
[2025-02-27 15:51] VITALS: BP 142/93
[2025-02-27] MEDS ORDERED: RX Prepack 2 Sprays Naloxone HCL 4 MG/SPRAY UD ONE (19:35)
[2025-02-27] MEDS ORDERED: CEPH500 PO (19:39)
[2025-02-27] MEDS ORDERED: Cephalexin Monohydrate 500 MG Cap PO ONE (19:40)
[2025-02-27] MEDS ORDERED: RX Prepack 6 Tabs Oxycodone 5mg UD ONE (19:40)
[2025-03-08] MEDS ORDERED: DOXY100 PO (23:44)
== END 2025-02-27 19:56 | disposition home or self-care (01) ==
LOC: ER 15:41
DX: E11.622 Type 2 diabetes mellitus with other skin ulcer (principal); L97.919 Non-pressure chronic ulcer of unspecified part of right lower leg with unspecified severity; I10 Essential (primary) hypertension; G47.33 Obstructive sleep apnea (adult) (pediatric); K21.9 Gastro-esophageal reflux disease without esophagitis; Z87.891 Personal history of nicotine dependence; Z88.8 Allergy status to other drugs, medicaments and biological substances; Z79.84 Long term (current) use of oral hypoglycemic drugs; Z79.899 Other long term (current) drug therapy; Z59.89 Other problems related to housing and economic circumstances
CPT/HCPCS: 99283; A9270

== ENCOUNTER 2025-02-28 00:49 | Day surgery (SDC) | payer OTHER ==
[2025-02-28] MEDS ORDERED: Lidocaine HCl 4% Cream 5 GM ONE (08:29)
[2025-03-08] MEDS ORDERED: DOXY100 PO (23:44)
== END 2025-02-28 23:00 ==
LOC: WOUND 00:49
DX: I87.313 Chronic venous hypertension (idiopathic) with ulcer of bilateral lower extremity (principal); L97.812 Non-pressure chronic ulcer of other part of right lower leg with fat layer exposed; L97.222 Non-pressure chronic ulcer of left calf with fat layer exposed; I87.2 Venous insufficiency (chronic) (peripheral); I73.9 Peripheral vascular disease, unspecified; I27.0 Primary pulmonary hypertension
CPT/HCPCS: A9270

== ENCOUNTER 2025-03-12 03:55 | Emergency (ER) | payer OTHER ==
[~2025-03-12] VITALS: Ht 162.6 cm; Wt 118.8 kg
[~2025-03-12 03:55] MED LIST changes: +IBUP400 PO
[2025-03-12 05:00] VITALS: BP 198/114
[2025-03-12] MEDS ORDERED: Ketorolac Tromethamine 15mg Vial IM ONE (06:45)
[2025-03-12] MEDS ORDERED: OxyCODONE HCL 5 MG TAB PO ONE (07:05)
[2025-03-19] MEDS ORDERED: CLIN300 PO (01:12)
== END 2025-03-12 07:46 | disposition home or self-care (01) ==
LOC: ER 03:55
DX: S81.801A Unspecified open wound, right lower leg, initial encounter (principal); F43.10 Post-traumatic stress disorder, unspecified; K21.9 Gastro-esophageal reflux disease without esophagitis; I10 Essential (primary) hypertension; G47.33 Obstructive sleep apnea (adult) (pediatric); X58.XXXA Exposure to other specified factors, initial encounter; Z87.891 Personal history of nicotine dependence; Z79.899 Other long term (current) drug therapy; Z79.84 Long term (current) use of oral hypoglycemic drugs; Z88.8 Allergy status to other drugs, medicaments and biological substances
CPT/HCPCS: 96372; 99283; A9270; J1885

== ENCOUNTER 2025-03-20 03:33 | Day surgery (SDC) | payer OTHER ==
[~2025-03-20 03:33] MED LIST changes: +CLIN300 PO
[2025-03-20] MEDS ORDERED: Lidocaine HCl 4% Cream 5 GM ONE (14:35)
[2025-03-20] MEDS ORDERED: Triamcinolone Acet 0.1% Cream 15 gm ONE (15:09)
== END 2025-03-20 23:46 | disposition home or self-care (01) ==
LOC: WOUND 03:33
DX: I87.311 Chronic venous hypertension (idiopathic) with ulcer of right lower extremity (principal); L97.812 Non-pressure chronic ulcer of other part of right lower leg with fat layer exposed; I87.2 Venous insufficiency (chronic) (peripheral); I73.9 Peripheral vascular disease, unspecified; I27.0 Primary pulmonary hypertension
CPT/HCPCS: A9270

== ENCOUNTER 2025-04-10 05:19 | Emergency (ER) | payer OTHER ==
[~2025-04-10] VITALS: Ht 165.1 cm; Wt 126.5 kg
[2025-04-10] MEDS ORDERED: Ketorolac Tromethamine 30mg Vial IM ONE (06:40)
[2025-04-10] MEDS ORDERED: OxyCODONE 5 mg/Acetamin 325 mg TABLET PO ONE (06:40)
[2025-04-10 07:26] VITALS: BP 151/90
== END 2025-04-10 07:27 | disposition home or self-care (01) ==
LOC: ER 05:19
DX: L97.819 Non-pressure chronic ulcer of other part of right lower leg with unspecified severity (principal); I10 Essential (primary) hypertension; G47.33 Obstructive sleep apnea (adult) (pediatric); K21.9 Gastro-esophageal reflux disease without esophagitis; Z87.891 Personal history of nicotine dependence; Z88.8 Allergy status to other drugs, medicaments and biological substances; Z79.84 Long term (current) use of oral hypoglycemic drugs; Z79.899 Other long term (current) drug therapy
CPT/HCPCS: 96372; 99283-25; A9270; J1885

== ENCOUNTER 2025-04-11 02:14 | Day surgery (SDC) | payer OTHER ==
[2025-04-11] MEDS ORDERED: Lidocaine HCl 4% Cream 5 GM ONE (07:59)
== END 2025-04-11 23:00 | disposition home or self-care (01) ==
LOC: WOUND 02:14
DX: I87.313 Chronic venous hypertension (idiopathic) with ulcer of bilateral lower extremity (principal); L97.812 Non-pressure chronic ulcer of other part of right lower leg with fat layer exposed; L97.222 Non-pressure chronic ulcer of left calf with fat layer exposed; I87.2 Venous insufficiency (chronic) (peripheral); I73.9 Peripheral vascular disease, unspecified; I27.0 Primary pulmonary hypertension
CPT/HCPCS: A9270

== ENCOUNTER 2025-04-18 03:55 | Day surgery (SDC) | payer OTHER ==
[2025-04-18] MEDS ORDERED: Lidocaine HCl 4% Cream 5 GM ONE (08:00)
== END 2025-04-18 22:00 | disposition home or self-care (01) ==
LOC: WOUND 03:55
DX: I87.311 Chronic venous hypertension (idiopathic) with ulcer of right lower extremity (principal); L97.812 Non-pressure chronic ulcer of other part of right lower leg with fat layer exposed; I87.2 Venous insufficiency (chronic) (peripheral); I73.9 Peripheral vascular disease, unspecified; I27.0 Primary pulmonary hypertension
CPT/HCPCS: A9270

== ENCOUNTER 2025-04-25 00:34 | Day surgery (SDC) | payer OTHER ==
[2025-04-25] MEDS ORDERED: Lidocaine HCl 4% Cream 5 GM ONE (07:50)
== END 2025-04-25 23:00 | disposition home or self-care (01) ==
LOC: WOUND 00:34
DX: I87.311 Chronic venous hypertension (idiopathic) with ulcer of right lower extremity (principal); L97.812 Non-pressure chronic ulcer of other part of right lower leg with fat layer exposed; I87.2 Venous insufficiency (chronic) (peripheral); I73.9 Peripheral vascular disease, unspecified; I27.0 Primary pulmonary hypertension
CPT/HCPCS: A9270

== ENCOUNTER 2025-05-02 00:32 | Day surgery (SDC) | payer OTHER ==
[2025-05-02] MEDS ORDERED: Lidocaine HCl 4% Cream 5 GM ONE (07:47)
== END 2025-05-02 22:54 | disposition home or self-care (01) ==
LOC: WOUND 00:32
DX: I87.311 Chronic venous hypertension (idiopathic) with ulcer of right lower extremity (principal); L97.812 Non-pressure chronic ulcer of other part of right lower leg with fat layer exposed; I87.2 Venous insufficiency (chronic) (peripheral); I73.9 Peripheral vascular disease, unspecified; I27.0 Primary pulmonary hypertension
CPT/HCPCS: A9270

== ENCOUNTER 2025-05-09 01:24 | Day surgery (SDC) | payer OTHER ==
[2025-05-09] MEDS ORDERED: Lidocaine HCl 4% Cream 5 GM ONE (07:50)
== END 2025-05-09 23:00 | disposition home or self-care (01) ==
LOC: WOUND 01:24
DX: L97.812 Non-pressure chronic ulcer of other part of right lower leg with fat layer exposed (principal); I87.2 Venous insufficiency (chronic) (peripheral); I73.9 Peripheral vascular disease, unspecified; I27.0 Primary pulmonary hypertension
CPT/HCPCS: A9270

== ENCOUNTER 2025-05-16 | Day surgery (SDC) | payer OTHER | END 2025-05-16 09:00 | disposition home or self-care (01) | LOC: WOUND | DX: L97.812 Non-pressure chronic ulcer of other part of right lower leg with fat layer exposed (principal); I87.2 Venous insufficiency (chronic) (peripheral); I73.9 Peripheral vascular disease, unspecified; I27.0 Primary pulmonary hypertension ==

== ENCOUNTER → 2025-05-23 | Day surgery (SDC) | payer OTHER ==
[~2025-05-23] MED LIST changes: +Lidocaine HCl 4% Cream 5 GM ONE
== END ==
LOC: WOUND 04:21
DX: L97.812 Non-pressure chronic ulcer of other part of right lower leg with fat layer exposed (principal); I10 Essential (primary) hypertension; I87.2 Venous insufficiency (chronic) (peripheral); I73.9 Peripheral vascular disease, unspecified
CPT/HCPCS: A9270

== ENCOUNTER → 2025-05-26 | Outpatient (CLI) | payer OTHER ==
[~2025-05-26] MED LIST changes: -Lidocaine HCl 4% Cream 5 GM ONE
[2025-05-26 14:03] LABS: Campylobacter Sp Not Detected (NOT DETECT); E. Coli O157 Not Detected (NOT DETECT); Enteroaggregative E. coli-EAEC Not Detected (NOT DETECT); Enteropathogenic E. coli-EPEC Not Detected (NOT DETECT); Enterotoxigenic E. coli-ETEC Not Detected (NOT DETECT); Salmonella Sp Not Detected (NOT DETECT); Shiga Toxin-prod E. coli-STEC Not Detected (NOT DETECT); Shigella/Enteroin E. coli-EIEC Not Detected (NOT DETECT); Vibrio Sp Not Detected (NOT DETECT)
== END ==
LOC: LAB 11:43 → LAB SHORT 11:43
PROVIDERS: Nurse Practitioner Family
DX: K52.9 Noninfective gastroenteritis and colitis, unspecified (principal)
CPT/HCPCS: 87324; 87507

== ENCOUNTER 2025-06-02 15:57 | Emergency (ER) | payer OTHER ==
[~2025-06-02] VITALS: Ht 165.1 cm; Wt 122.9 kg
[2025-06-02 16:01] VITALS: BP 188/100
== END 2025-06-02 18:09 | disposition home or self-care (01) ==
LOC: ER 15:57
DX: A04.72 Enterocolitis due to Clostridium difficile, not specified as recurrent (principal); Z76.0 Encounter for issue of repeat prescription; I10 Essential (primary) hypertension; F43.10 Post-traumatic stress disorder, unspecified; G47.33 Obstructive sleep apnea (adult) (pediatric); K21.9 Gastro-esophageal reflux disease without esophagitis; Z87.891 Personal history of nicotine dependence; Z88.8 Allergy status to other drugs, medicaments and biological substances; Z79.84 Long term (current) use of oral hypoglycemic drugs; Z79.899 Other long term (current) drug therapy
CPT/HCPCS: 99281; A9270

== ENCOUNTER → 2025-06-03 | Outpatient (CLI) | payer OTHER ==
[~2025-06-03] MED LIST changes: +DIFICID200 MG PO
== END ==
LOC: LAB 14:30 → LAB SHORT 14:30
DX: I83.019 Varicose veins of right lower extremity with ulcer of unspecified site (principal); L97.919 Non-pressure chronic ulcer of unspecified part of right lower leg with unspecified severity
CPT/HCPCS: 87070; 87075; 87077; 87147; 87186; 87205

== ENCOUNTER 2025-06-04 03:46 | Emergency (ER) | payer OTHER ==
[~2025-06-04] VITALS: Ht 165.1 cm; Wt 122.9 kg
[~2025-06-04 03:46] MED LIST changes: -DIFICID200 MG PO
[2025-06-04] MEDS ORDERED: DIFICID200 MG PO (04:33)
[2025-06-04 04:51] VITALS: BP 150/92
== END 2025-06-04 04:59 | disposition home or self-care (01) ==
LOC: ER 03:46
DX: L89.899 Pressure ulcer of other site, unspecified stage (principal); Z76.0 Encounter for issue of repeat prescription; A04.72 Enterocolitis due to Clostridium difficile, not specified as recurrent; F43.10 Post-traumatic stress disorder, unspecified; G47.30 Sleep apnea, unspecified; K21.9 Gastro-esophageal reflux disease without esophagitis; G47.33 Obstructive sleep apnea (adult) (pediatric); Z87.891 Personal history of nicotine dependence; Z79.899 Other long term (current) drug therapy; Z79.84 Long term (current) use of oral hypoglycemic drugs; Z88.8 Allergy status to other drugs, medicaments and biological substances; Z76.89 Persons encountering health services in other specified circumstances
CPT/HCPCS: 99281; A9270

== ENCOUNTER 2025-06-05 02:55 | Emergency (ER) | payer OTHER ==
[~2025-06-05] VITALS: Ht 165.1 cm; Wt 118.4 kg
[~2025-06-05 02:55] MED LIST changes: +DIFICID200 MG PO
[2025-06-05 03:38] VITALS: BP 168/95
== END 2025-06-05 04:00 | disposition home or self-care (01) ==
LOC: ER 02:55
DX: Z76.89 Persons encountering health services in other specified circumstances (principal); A04.72 Enterocolitis due to Clostridium difficile, not specified as recurrent; I10 Essential (primary) hypertension; G47.33 Obstructive sleep apnea (adult) (pediatric); K21.9 Gastro-esophageal reflux disease without esophagitis; F25.9 Schizoaffective disorder, unspecified; Z79.84 Long term (current) use of oral hypoglycemic drugs; Z79.899 Other long term (current) drug therapy; Z88.8 Allergy status to other drugs, medicaments and biological substances; Z87.891 Personal history of nicotine dependence
CPT/HCPCS: 99281; A9270

== ENCOUNTER 2025-06-06 00:57 | Day surgery (SDC) | payer OTHER ==
[2025-06-06] MEDS ORDERED: Lidocaine HCl 4% Cream 5 GM ONE (07:57)
== END 2025-06-06 23:00 | disposition home or self-care (01) ==
LOC: WOUND 00:57
DX: S81.801A Unspecified open wound, right lower leg, initial encounter (principal); E11.622 Type 2 diabetes mellitus with other skin ulcer; L97.812 Non-pressure chronic ulcer of other part of right lower leg with fat layer exposed; B96.89 Other specified bacterial agents as the cause of diseases classified elsewhere; I87.2 Venous insufficiency (chronic) (peripheral); I73.9 Peripheral vascular disease, unspecified; I27.0 Primary pulmonary hypertension; F43.10 Post-traumatic stress disorder, unspecified; G47.33 Obstructive sleep apnea (adult) (pediatric); K21.9 Gastro-esophageal reflux disease without esophagitis; Z79.84 Long term (current) use of oral hypoglycemic drugs; Z79.899 Other long term (current) drug therapy; Z88.8 Allergy status to other drugs, medicaments and biological substances; Z79.2 Long term (current) use of antibiotics; Z87.891 Personal history of nicotine dependence; X58.XXXA Exposure to other specified factors, initial encounter
CPT/HCPCS: 36415; 83036; 96372; 99283; A9270; J3010

== ENCOUNTER 2025-06-06 23:37 | Emergency (ER) | payer OTHER ==
[~2025-06-06] VITALS: Ht 165.1 cm; Wt 124.3 kg
[2025-06-07 02:15] VITALS: BP 137/87
[2025-06-07] MEDS ORDERED: FentaNYL Citrate 50 MCG/ML 2 ML Injection IM ONE (02:50)
[2025-06-07] MEDS ORDERED: Ondansetron 4 MG SoluTab SL ONE (02:50)
== END 2025-06-07 03:14 | disposition home or self-care (01) ==
LOC: ER 23:37
DX: S81.801A Unspecified open wound, right lower leg, initial encounter (principal); I10 Essential (primary) hypertension; F43.10 Post-traumatic stress disorder, unspecified; K21.9 Gastro-esophageal reflux disease without esophagitis; Z79.84 Long term (current) use of oral hypoglycemic drugs; Z79.899 Other long term (current) drug therapy; Z88.8 Allergy status to other drugs, medicaments and biological substances; Z79.2 Long term (current) use of antibiotics; G47.33 Obstructive sleep apnea (adult) (pediatric); Z87.891 Personal history of nicotine dependence; X58.XXXA Exposure to other specified factors, initial encounter
CPT/HCPCS: 96372; 99283; A9270; J3010

== ENCOUNTER 2025-06-11 18:42 | Emergency (ER) | payer OTHER ==
[~2025-06-11] VITALS: Ht 170.2 cm; Wt 99.8 kg
[2025-06-11 19:36] LABS: BASOPHILS ABSOLUTE AUTO 0.03 K/mm3 (0.00-0.23); BASOPHILS PERCENT AUTO 0 % (0-2); EOSINOPHILS ABSOLUTE AUTO 0.24 K/mm3 (0.00-0.68); EOSINOPHILS PERCENT AUTO 3 % (0-6); Hematocrit 36.0 % (37.0-53.0); Hemoglobin 12.6 g/dL (13.5-17.5); IMMATURE GRAN ABSOLUTE AUTO 0.04 K/mm3 (0.00-0.10); IMMATURE GRAN PERCENT AUTO 1 % (0-1); LYMPHOCYTES ABSOLUTE AUTO 1.21 K/mm3 (0.84-5.20); LYMPHOCYTES PERCENT AUTO 15 % (21-46); MONOCYTES ABSOLUTE AUTO 1.00 K/mm3 (0.16-1.47); MONOCYTES PERCENT AUTO 13 % (4-13); Mean Corpuscular HGB Conc 35.0 g/dL (31.5-36.5); Mean Corpuscular Volume 97 fL (80-100); NEUTROPHILS ABSOLUTE AUTO 5.39 K/mm3 (1.96-9.15); NEUTROPHILS PERCENT AUTO 68 % (41-73); NRBC ABSOLUTE 0.00 K/mm3 (0.00-0.02); NRBC Auto 0.0 /100 WBC (0.0-0.2); Platelet Count 381 K/mm3 (150-400); RDW Coefficient Variation 13.2 % (11.7-14.2); RDW Standard Deviation 46.6 fL (35.1-46.3)
[2025-06-11 19:53] LABS: Alanine Aminotransfer (ALT/SGP 37.0 U/L (12-78); Albumin, Blood 3.9 g/dL (3.4-5.0); Albumin/Globulin Ratio 1.2 (0.8-1.8); Anion Gap 9.0 mmol/L (3-11); Aspartate Aminotrans (AST/SGOT 24.0 U/L (12-37); Bilirubin, Total 0.3 mg/dL (0.1-1.0); Blood Urea Nitrogen 17.0 mg/dL (8-24); CO2, Blood 24.0 mmol/L (21-32); Calcium, Blood 8.9 mg/dL (8.5-10.1); Chloride, Blood 105.0 mmol/L (98-108); Creatinine, Blood 0.74 mg/dL (0.60-1.20); Globulin, Blood 3.2 g/dL (2.2-4.0); Glucose, Blood 142.0 mg/dL (70-99); Potassium, Blood 4.0 mmol/L (3.5-5.5); Sodium, Blood 134.0 mmol/L (136-145); Total Protein, Blood 7.1 g/dL (6.4-8.2)
[2025-06-11] MEDS ORDERED: RX Prepack 6 Tabs Oxycodone 5mg UD ONE (21:30)
[2025-06-11 21:45] VITALS: BP 162/90
== END 2025-06-11 21:49 | disposition home or self-care (01) ==
LOC: ER 18:42
PROVIDERS: Student in an Organized Health Care Education/Training Program
DX: L97.919 Non-pressure chronic ulcer of unspecified part of right lower leg with unspecified severity (principal); R60.0 Localized edema; F43.10 Post-traumatic stress disorder, unspecified; I10 Essential (primary) hypertension; K21.9 Gastro-esophageal reflux disease without esophagitis; Z87.891 Personal history of nicotine dependence; Z79.84 Long term (current) use of oral hypoglycemic drugs; Z79.899 Other long term (current) drug therapy; Z88.8 Allergy status to other drugs, medicaments and biological substances
CPT/HCPCS: 80053; 85025; A9270

== ENCOUNTER 2025-06-13 01:05 | Day surgery (SDC) | payer OTHER ==
[2025-06-13] MEDS ORDERED: Lidocaine HCl 4% Cream 5 GM ONE (07:54)
== END 2025-06-13 23:00 | disposition home or self-care (01) ==
LOC: WOUND 01:05
DX: L97.812 Non-pressure chronic ulcer of other part of right lower leg with fat layer exposed (principal); I87.2 Venous insufficiency (chronic) (peripheral); I73.9 Peripheral vascular disease, unspecified; I27.0 Primary pulmonary hypertension
CPT/HCPCS: A9270

== ENCOUNTER 2025-06-16 22:06 | Emergency (ER) | payer OTHER ==
[~2025-06-16] VITALS: Ht 165.1 cm; Wt 124.3 kg
[2025-06-16 22:26] VITALS: BP 163/92
== END 2025-06-17 04:06 | disposition home or self-care (01) ==
LOC: ER 22:06
DX: I87.8 Other specified disorders of veins (principal); R60.0 Localized edema; Z48.00 Encounter for change or removal of nonsurgical wound dressing; Z88.8 Allergy status to other drugs, medicaments and biological substances; Z79.84 Long term (current) use of oral hypoglycemic drugs; Z79.899 Other long term (current) drug therapy; Z79.2 Long term (current) use of antibiotics; F43.10 Post-traumatic stress disorder, unspecified; K21.9 Gastro-esophageal reflux disease without esophagitis; I10 Essential (primary) hypertension; Z59.89 Other problems related to housing and economic circumstances
CPT/HCPCS: 99282

== ENCOUNTER 2025-06-28 02:37 | Day surgery (SDC) | payer OTHER ==
[2025-06-28] MEDS ORDERED: Lidocaine HCl 4% Cream 5 GM ONE (15:23)
[2025-07-01] MEDS ORDERED: DOXY100 PO (20:33)
== END 2025-06-28 23:00 | disposition home or self-care (01) ==
LOC: WOUND 02:37
DX: L97.812 Non-pressure chronic ulcer of other part of right lower leg with fat layer exposed (principal); I87.2 Venous insufficiency (chronic) (peripheral); I73.9 Peripheral vascular disease, unspecified; I10 Essential (primary) hypertension
CPT/HCPCS: A6196; A9270

== ENCOUNTER 2025-07-05 04:18 | Day surgery (SDC) | payer OTHER ==
[2025-07-05] MEDS ORDERED: Lidocaine HCl 4% Cream 5 GM ONE (15:44)
== END 2025-07-05 23:00 | disposition home or self-care (01) ==
LOC: WOUND 04:18
DX: L97.812 Non-pressure chronic ulcer of other part of right lower leg with fat layer exposed (principal); I87.2 Venous insufficiency (chronic) (peripheral); I73.9 Peripheral vascular disease, unspecified; I27.20 Pulmonary hypertension, unspecified; I12.0 Hypertensive chronic kidney disease with stage 5 chronic kidney disease or end stage renal disease; N18.6 End stage renal disease; I87.311 Chronic venous hypertension (idiopathic) with ulcer of right lower extremity
CPT/HCPCS: A6196; A9270

== ENCOUNTER 2025-07-12 02:29 | Day surgery (SDC) | payer OTHER ==
[2025-07-12] MEDS ORDERED: Lidocaine HCl 4% Cream 5 GM ONE (15:31)
== END 2025-07-12 23:00 | disposition home or self-care (01) ==
LOC: WOUND 02:29
DX: L97.812 Non-pressure chronic ulcer of other part of right lower leg with fat layer exposed (principal); I87.2 Venous insufficiency (chronic) (peripheral); I73.9 Peripheral vascular disease, unspecified; I12.0 Hypertensive chronic kidney disease with stage 5 chronic kidney disease or end stage renal disease; N18.6 End stage renal disease
CPT/HCPCS: A9270

== ENCOUNTER 2025-07-25 02:01 | Day surgery (SDC) | payer OTHER ==
[2025-07-25] MEDS ORDERED: Lidocaine HCl 4% Cream 5 GM ONE (11:16)
== END 2025-07-25 23:00 | disposition home or self-care (01) ==
LOC: WOUND 02:01
DX: L97.812 Non-pressure chronic ulcer of other part of right lower leg with fat layer exposed (principal); I87.2 Venous insufficiency (chronic) (peripheral); I73.9 Peripheral vascular disease, unspecified; I10 Essential (primary) hypertension
CPT/HCPCS: A9270

== ENCOUNTER 2025-08-01 00:54 | Day surgery (SDC) | payer OTHER ==
[2025-08-01] MEDS ORDERED: Lidocaine HCl 4% Cream 5 GM ONE (07:54)
== END 2025-08-01 23:00 | disposition home or self-care (01) ==
LOC: WOUND 00:54
DX: L97.812 Non-pressure chronic ulcer of other part of right lower leg with fat layer exposed (principal); I87.2 Venous insufficiency (chronic) (peripheral); I10 Essential (primary) hypertension; I73.9 Peripheral vascular disease, unspecified
CPT/HCPCS: A9270

== ENCOUNTER 2025-08-08 01:17 | Day surgery (SDC) | payer OTHER ==
[2025-08-08] MEDS ORDERED: Lidocaine HCl 4% Cream 5 GM ONE (07:49)
== END 2025-08-08 22:45 | disposition home or self-care (01) ==
LOC: WOUND 01:17
DX: L97.812 Non-pressure chronic ulcer of other part of right lower leg with fat layer exposed (principal); I87.2 Venous insufficiency (chronic) (peripheral); I73.9 Peripheral vascular disease, unspecified; I27.0 Primary pulmonary hypertension
CPT/HCPCS: A9270

== ENCOUNTER 2025-08-15 00:46 | Day surgery (SDC) | payer OTHER ==
[2025-08-15] MEDS ORDERED: Lidocaine HCl 4% Cream 5 GM ONE (09:30)
== END 2025-08-15 23:00 | disposition home or self-care (01) ==
LOC: WOUND 00:46
DX: L97.812 Non-pressure chronic ulcer of other part of right lower leg with fat layer exposed (principal); I87.2 Venous insufficiency (chronic) (peripheral); I73.9 Peripheral vascular disease, unspecified; I12.0 Hypertensive chronic kidney disease with stage 5 chronic kidney disease or end stage renal disease; N18.6 End stage renal disease
CPT/HCPCS: A6196; A9270

== ENCOUNTER 2025-08-22 00:32 | Day surgery (SDC) | payer OTHER ==
[2025-08-22] MEDS ORDERED: Lidocaine HCl 4% Cream 5 GM ONE (07:51)
== END 2025-08-22 22:46 | disposition home or self-care (01) ==
LOC: WOUND 00:32
DX: L97.812 Non-pressure chronic ulcer of other part of right lower leg with fat layer exposed (principal); I87.2 Venous insufficiency (chronic) (peripheral); I73.9 Peripheral vascular disease, unspecified; I27.0 Primary pulmonary hypertension; I10 Essential (primary) hypertension
CPT/HCPCS: A9270

== ENCOUNTER 2025-08-29 00:58 | Day surgery (SDC) | payer OTHER ==
[2025-08-29] MEDS ORDERED: Lidocaine HCl 4% Cream 5 GM ONE (07:31)
== END 2025-08-29 22:50 | disposition home or self-care (01) ==
LOC: WOUND 00:58
DX: E11.622 Type 2 diabetes mellitus with other skin ulcer (principal); L97.815 Non-pressure chronic ulcer of other part of right lower leg with muscle involvement without evidence of necrosis; L97.812 Non-pressure chronic ulcer of other part of right lower leg with fat layer exposed; E11.51 Type 2 diabetes mellitus with diabetic peripheral angiopathy without gangrene; I87.2 Venous insufficiency (chronic) (peripheral); I10 Essential (primary) hypertension; K21.9 Gastro-esophageal reflux disease without esophagitis; Z87.891 Personal history of nicotine dependence
CPT/HCPCS: A9270

== ENCOUNTER 2025-09-05 01:41 | Day surgery (SDC) | payer OTHER ==
[2025-09-05] MEDS ORDERED: Lidocaine HCl 4% Cream 5 GM ONE (07:50)
== END 2025-09-05 22:00 | disposition home or self-care (01) ==
LOC: WOUND 01:41
DX: E11.622 Type 2 diabetes mellitus with other skin ulcer (principal); L97.815 Non-pressure chronic ulcer of other part of right lower leg with muscle involvement without evidence of necrosis; L97.812 Non-pressure chronic ulcer of other part of right lower leg with fat layer exposed; I87.2 Venous insufficiency (chronic) (peripheral); E11.51 Type 2 diabetes mellitus with diabetic peripheral angiopathy without gangrene; I27.0 Primary pulmonary hypertension
CPT/HCPCS: A9270

== ENCOUNTER 2025-09-12 02:23 | Day surgery (SDC) | payer OTHER ==
[2025-09-12] MEDS ORDERED: Lidocaine HCl 4% Cream 5 GM ONE (07:43)
== END 2025-09-12 23:27 | disposition home or self-care (01) ==
LOC: WOUND 02:23
DX: E11.622 Type 2 diabetes mellitus with other skin ulcer (principal); L97.812 Non-pressure chronic ulcer of other part of right lower leg with fat layer exposed; L97.222 Non-pressure chronic ulcer of left calf with fat layer exposed; I87.313 Chronic venous hypertension (idiopathic) with ulcer of bilateral lower extremity; I87.2 Venous insufficiency (chronic) (peripheral); E11.51 Type 2 diabetes mellitus with diabetic peripheral angiopathy without gangrene; I27.0 Primary pulmonary hypertension; Z79.84 Long term (current) use of oral hypoglycemic drugs; Z79.899 Other long term (current) drug therapy; Z88.8 Allergy status to other drugs, medicaments and biological substances
CPT/HCPCS: A9270

== ENCOUNTER 2025-09-18 21:45 | Emergency (ER) | payer OTHER ==
[~2025-09-18] VITALS: Ht 165.1 cm; Wt 117.9 kg
[2025-09-18] MEDS ORDERED: Ondansetron HCl 2 MG / ML 2ML Vial IV ONE (23:45)
[2025-09-18] MEDS ORDERED: HYDROmorphone HCl/Pf 1MG SYR IV ONE (23:45)
[2025-09-18] MEDS ORDERED: Ketorolac Tromethamine 15mg Vial IV ONE (23:50)
[2025-09-19] MEDS ORDERED: NS 1,000 ML IV SCH (02:05)
[2025-09-19] MEDS ORDERED: HYDROmorphone HCl/Pf 1MG SYR IV ONE (02:05)
[2025-09-19] MEDS ORDERED: RX Prepack 2 Sprays Naloxone HCL 4 MG/SPRAY UD ONE (02:20)
[2025-09-19] MEDS ORDERED: RX Prepack 6 Tabs Oxycodone 5mg UD ONE (02:20)
[2025-09-19] MEDS ORDERED: RX Prepack 2 Tabs Ondansetron ODT 4MG UD ONE (02:20)
[2025-09-19] MEDS ORDERED: Percocet 5-3251 EACH PO (02:27)
[2025-09-19] MEDS ORDERED: LIDO700A20 TOP (02:27)
[2025-09-19] MEDS ORDERED: IBUP800 PO (02:27)
[2025-09-19] MEDS ORDERED: Robaxin750 MG PO (02:27)
[2025-09-19 02:45] VITALS: BP 118/80
== END 2025-09-19 03:30 | disposition home or self-care (01) ==
LOC: ER 21:45
DX: S43.401A Unspecified sprain of right shoulder joint, initial encounter (principal); G47.30 Sleep apnea, unspecified; Z87.891 Personal history of nicotine dependence; Z79.84 Long term (current) use of oral hypoglycemic drugs; Z79.899 Other long term (current) drug therapy; X50.0XXA Overexertion from strenuous movement or load, initial encounter; Y93.E9 Activity, other interior property and clothing maintenance
CPT/HCPCS: 73030; 73200; 96374; 96375; 96376; 99283-25; A9270; J1171; J1885; J2405

== ENCOUNTER 2025-09-19 02:20 | Day surgery (SDC) | payer OTHER ==
[2025-09-19] MEDS ORDERED: Percocet 5-3251 EACH PO (02:27)
[2025-09-19] MEDS ORDERED: LIDO700A20 TOP (02:27)
[2025-09-19] MEDS ORDERED: Robaxin750 MG PO (02:27)
[2025-09-19] MEDS ORDERED: IBUP800 PO (02:27)
[2025-09-19] MEDS ORDERED: Lidocaine HCl 4% Cream 5 GM ONE (07:50)
== END 2025-09-19 23:21 | disposition home or self-care (01) ==
LOC: WOUND 02:20
DX: E11.622 Type 2 diabetes mellitus with other skin ulcer (principal); L97.812 Non-pressure chronic ulcer of other part of right lower leg with fat layer exposed; L97.815 Non-pressure chronic ulcer of other part of right lower leg with muscle involvement without evidence of necrosis; E11.51 Type 2 diabetes mellitus with diabetic peripheral angiopathy without gangrene; I87.2 Venous insufficiency (chronic) (peripheral); I10 Essential (primary) hypertension
CPT/HCPCS: A9270

== ENCOUNTER → 2025-09-20 | Outpatient (CLI) | payer OTHER ==
[~2025-09-20] MED LIST changes: +IBUP800 PO; +Robaxin750 MG PO
[2025-09-20 11:09] LABS: BASOPHILS ABSOLUTE AUTO 0.03 K/mm3 (0.00-0.23); BASOPHILS PERCENT AUTO 1 % (0-2); EOSINOPHILS ABSOLUTE AUTO 0.27 K/mm3 (0.00-0.68); EOSINOPHILS PERCENT AUTO 4 % (0-6); Hematocrit 36.5 % (37.0-53.0); Hemoglobin 12.5 g/dL (13.5-17.5); IMMATURE GRAN ABSOLUTE AUTO 0.03 K/mm3 (0.00-0.10); IMMATURE GRAN PERCENT AUTO 1 % (0-1); LYMPHOCYTES ABSOLUTE AUTO 1.01 K/mm3 (0.84-5.20); LYMPHOCYTES PERCENT AUTO 16 % (21-46); MONOCYTES ABSOLUTE AUTO 0.73 K/mm3 (0.16-1.47); MONOCYTES PERCENT AUTO 12 % (4-13); Mean Corpuscular HGB Conc 34.2 g/dL (31.5-36.5); Mean Corpuscular Volume 98 fL (80-100); NEUTROPHILS ABSOLUTE AUTO 4.20 K/mm3 (1.96-9.15); NEUTROPHILS PERCENT AUTO 67 % (41-73); NRBC ABSOLUTE 0.00 K/mm3 (0.00-0.02); NRBC Auto 0.0 /100 WBC (0.0-0.2); Platelet Count 347 K/mm3 (150-400); RDW Coefficient Variation 12.8 % (11.7-14.2); RDW Standard Deviation 45.6 fL (35.1-46.3)
[2025-09-20 11:27] LABS: Alanine Aminotransfer (ALT/SGP 33.0 U/L (12-78); Albumin, Blood 3.9 g/dL (3.4-5.0); Albumin/Globulin Ratio 1.3 (0.8-1.8); Anion Gap 16.0 mmol/L (3-11); Aspartate Aminotrans (AST/SGOT 18.0 U/L (12-37); Bilirubin, Total 0.6 mg/dL (0.1-1.0); Blood Urea Nitrogen 25.0 mg/dL (8-24); CO2, Blood 24.0 mmol/L (21-32); Calcium, Blood 8.7 mg/dL (8.5-10.1); Chloride, Blood 103.0 mmol/L (98-108); Creatinine, Blood 1.07 mg/dL (0.60-1.20); Globulin, Blood 3.0 g/dL (2.2-4.0); Glucose, Blood 134.0 mg/dL (70-99); Potassium, Blood 4.6 mmol/L (3.5-5.5); Sodium, Blood 138.0 mmol/L (136-145); Total Protein, Blood 6.9 g/dL (6.4-8.2)
== END ==
LOC: LAB SHORT 11:06 → LAB 11:06
PROVIDERS: Physician Assistant Medical
DX: R42 Dizziness and giddiness (principal)
CPT/HCPCS: 80053; 85025

== ENCOUNTER → 2025-09-21 | Outpatient (CLI) | payer OTHER ==
[2025-09-21 09:55] LABS: BASOPHILS ABSOLUTE AUTO 0.03 K/mm3 (0.00-0.23); BASOPHILS PERCENT AUTO 1 % (0-2); EOSINOPHILS ABSOLUTE AUTO 0.28 K/mm3 (0.00-0.68); EOSINOPHILS PERCENT AUTO 5 % (0-6); Hematocrit 33.7 % (37.0-53.0); Hemoglobin 11.9 g/dL (13.5-17.5); IMMATURE GRAN ABSOLUTE AUTO 0.03 K/mm3 (0.00-0.10); IMMATURE GRAN PERCENT AUTO 1 % (0-1); LYMPHOCYTES ABSOLUTE AUTO 0.90 K/mm3 (0.84-5.20); LYMPHOCYTES PERCENT AUTO 16 % (21-46); MONOCYTES ABSOLUTE AUTO 0.73 K/mm3 (0.16-1.47); MONOCYTES PERCENT AUTO 13 % (4-13); Mean Corpuscular HGB Conc 35.3 g/dL (31.5-36.5); Mean Corpuscular Volume 94 fL (80-100); NEUTROPHILS ABSOLUTE AUTO 3.52 K/mm3 (1.96-9.15); NEUTROPHILS PERCENT AUTO 64 % (41-73); NRBC ABSOLUTE 0.00 K/mm3 (0.00-0.02); NRBC Auto 0.0 /100 WBC (0.0-0.2); Platelet Count 328 K/mm3 (150-400); RDW Coefficient Variation 12.5 % (11.7-14.2); RDW Standard Deviation 43.3 fL (35.1-46.3)
[2025-09-21 10:05] LABS: Alanine Aminotransfer (ALT/SGP 30.0 U/L (12-78); Albumin, Blood 3.8 g/dL (3.4-5.0); Albumin/Globulin Ratio 1.3 (0.8-1.8); Anion Gap 14.0 mmol/L (6-16); Aspartate Aminotrans (AST/SGOT 14.0 U/L (12-37); Bilirubin, Total 0.3 mg/dL (0.1-1.0); Blood Urea Nitrogen 19.0 mg/dL (8-24); CO2, Blood 26.0 mmol/L (21-32); Calcium, Blood 8.6 mg/dL (8.5-10.1); Chloride, Blood 103.0 mmol/L (98-108); Creatinine, Blood 0.84 mg/dL (0.60-1.20); Globulin, Blood 3.0 g/dL (2.2-4.0); Glucose, Blood 137.0 mg/dL (70-99); Potassium, Blood 4.3 mmol/L (3.5-5.5); Sodium, Blood 139.0 mmol/L (136-145); Total Protein, Blood 6.8 g/dL (6.4-8.2)
== END ==
LOC: LAB 09:51 → LAB SHORT 09:51
PROVIDERS: Family Medicine
DX: R42 Dizziness and giddiness (principal)
CPT/HCPCS: 80053; 85025

== ENCOUNTER 2025-09-26 00:20 | Day surgery (SDC) | payer OTHER ==
[2025-09-26] MEDS ORDERED: Lidocaine HCl 4% Cream 5 GM ONE (07:55)
== END 2025-09-26 23:35 | disposition home or self-care (01) ==
LOC: WOUND 00:20
DX: E11.622 Type 2 diabetes mellitus with other skin ulcer (principal); L97.812 Non-pressure chronic ulcer of other part of right lower leg with fat layer exposed; I87.2 Venous insufficiency (chronic) (peripheral); E11.51 Type 2 diabetes mellitus with diabetic peripheral angiopathy without gangrene; I10 Essential (primary) hypertension
CPT/HCPCS: A9270

== ENCOUNTER → 2025-09-26 | Outpatient (CLI) | payer OTHER ==
[2025-09-27 12:38] LABS: Stool Occult Bld Immuno 1 Negative (NEGATIVE)
== END | disposition home or self-care (01) ==
LOC: LAB SHORT 14:46 → LAB 14:46
PROVIDERS: Physician Assistant
DX: D64.9 Anemia, unspecified (principal)
CPT/HCPCS: G0328

== ENCOUNTER → 2025-10-09 | Day surgery (SDC) | payer OTHER | LOC: HBO 14:53 | DX: E11.622 Type 2 diabetes mellitus with other skin ulcer (principal); L97.812 Non-pressure chronic ulcer of other part of right lower leg with fat layer exposed; E11.51 Type 2 diabetes mellitus with diabetic peripheral angiopathy without gangrene | CPT/HCPCS: 82947; G0277 ==

== ENCOUNTER 2025-10-10 07:45 | Day surgery (SDC) | payer OTHER ==
[2025-10-10] MEDS ORDERED: Lidocaine HCl 4% Cream 5 GM ONE (07:51)
== END 2025-10-10 23:00 | disposition home or self-care (01) ==
LOC: WOUND
DX: E11.622 Type 2 diabetes mellitus with other skin ulcer (principal); L97.812 Non-pressure chronic ulcer of other part of right lower leg with fat layer exposed; L97.811 Non-pressure chronic ulcer of other part of right lower leg limited to breakdown of skin; E11.51 Type 2 diabetes mellitus with diabetic peripheral angiopathy without gangrene; I27.20 Pulmonary hypertension, unspecified
CPT/HCPCS: A9270

== ENCOUNTER 2025-10-10 13:00 | Day surgery (SDC) | payer OTHER | END 2025-10-10 23:00 | disposition home or self-care (01) | LOC: HBO | DX: E11.622 Type 2 diabetes mellitus with other skin ulcer (principal); L97.812 Non-pressure chronic ulcer of other part of right lower leg with fat layer exposed; I87.2 Venous insufficiency (chronic) (peripheral); I27.0 Primary pulmonary hypertension; E11.51 Type 2 diabetes mellitus with diabetic peripheral angiopathy without gangrene; Z79.899 Other long term (current) drug therapy | CPT/HCPCS: 82947; G0277 ==

== ENCOUNTER 2025-10-11 07:37 | Day surgery (SDC) | payer OTHER | END 2025-10-11 23:00 | disposition home or self-care (01) | LOC: HBO 07:37 | DX: E11.622 Type 2 diabetes mellitus with other skin ulcer (principal); L97.812 Non-pressure chronic ulcer of other part of right lower leg with fat layer exposed; E11.51 Type 2 diabetes mellitus with diabetic peripheral angiopathy without gangrene | CPT/HCPCS: 82947; G0277 ==

== ENCOUNTER 2025-10-11 15:40 | Emergency (ER) | payer OTHER ==
[~2025-10-11] VITALS: Ht 167.6 cm; Wt 97.5 kg
[2025-10-11 17:19] LABS: BASOPHILS ABSOLUTE AUTO 0.05 K/mm3 (0.00-0.23); BASOPHILS PERCENT AUTO 1 % (0-2); EOSINOPHILS ABSOLUTE AUTO 0.38 K/mm3 (0.00-0.68); EOSINOPHILS PERCENT AUTO 4 % (0-6); Hematocrit 35.8 % (37.0-53.0); Hemoglobin 12.4 g/dL (13.5-17.5); IMMATURE GRAN ABSOLUTE AUTO 0.05 K/mm3 (0.00-0.10); IMMATURE GRAN PERCENT AUTO 1 % (0-1); LYMPHOCYTES ABSOLUTE AUTO 1.17 K/mm3 (0.84-5.20); LYMPHOCYTES PERCENT AUTO 14 % (21-46); MONOCYTES ABSOLUTE AUTO 1.08 K/mm3 (0.16-1.47); MONOCYTES PERCENT AUTO 13 % (4-13); Mean Corpuscular HGB Conc 34.6 g/dL (31.5-36.5); Mean Corpuscular Volume 95 fL (80-100); NEUTROPHILS ABSOLUTE AUTO 5.84 K/mm3 (1.96-9.15); NEUTROPHILS PERCENT AUTO 68 % (41-73); NRBC ABSOLUTE 0.00 K/mm3 (0.00-0.02); NRBC Auto 0.0 /100 WBC (0.0-0.2); Platelet Count 370 K/mm3 (150-400); RDW Coefficient Variation 12.6 % (11.7-14.2); RDW Standard Deviation 43.7 fL (35.1-46.3)
[2025-10-11 17:38] LABS: Alanine Aminotransfer (ALT/SGP 41.0 U/L (12-78); Albumin, Blood 4.0 g/dL (3.4-5.0); Albumin/Globulin Ratio 1.3 (0.8-1.8); Anion Gap 10.0 mmol/L (3-11); Aspartate Aminotrans (AST/SGOT 17.0 U/L (12-37); Bilirubin, Total 0.5 mg/dL (0.1-1.0); Blood Urea Nitrogen 17.0 mg/dL (8-24); CO2, Blood 26.0 mmol/L (21-32); Calcium, Blood 8.7 mg/dL (8.5-10.1); Chloride, Blood 104.0 mmol/L (98-108); Creatinine, Blood 0.58 mg/dL (0.60-1.20); Globulin, Blood 3.1 g/dL (2.2-4.0); Glucose, Blood 99.0 mg/dL (70-99); Potassium, Blood 4.0 mmol/L (3.5-5.5); Sodium, Blood 136.0 mmol/L (136-145); Total Protein, Blood 7.1 g/dL (6.4-8.2)
[2025-10-11 19:28] VITALS: BP 127/68
[2025-10-11] MEDS ORDERED: Prochlorperazine Edisylate 10 mg Vial IV ONE (19:40)
[2025-10-11] MEDS ORDERED: DiphenhydrAMINE HCl 50 MG/ML 1ML Vial IV ONE (19:40)
== END 2025-10-11 20:18 | disposition home or self-care (01) ==
LOC: ER 15:40
PROVIDERS: Emergency Medicine
DX: I10 Essential (primary) hypertension (principal); R51.9 Headache, unspecified; Z79.899 Other long term (current) drug therapy; Z88.8 Allergy status to other drugs, medicaments and biological substances; Z79.84 Long term (current) use of oral hypoglycemic drugs; F43.10 Post-traumatic stress disorder, unspecified; G47.33 Obstructive sleep apnea (adult) (pediatric); K21.9 Gastro-esophageal reflux disease without esophagitis; Z87.891 Personal history of nicotine dependence
CPT/HCPCS: 80053; 84484; 85025; 93005; 93010; 96374; 96375; 99284-25; J0780; J1200